=== PATIENT | male | born 1930 | race Caucasian/White ===

== ENCOUNTER 2017-09-12 07:18 | Emergency (ER) | payer MEDICARE ==
[2017-09-12] MEDS: NS 1,000 ML IV (08:03)
[2017-09-12] MEDS: ALBUTEROL SULFATE 2.5 MG/0.5 ML INH NEB SOLN NEB ×3 (08:36→09:06)
[2017-09-12 09:00] LABS: BASO # 0.1 10^3/uL (0.0-0.2); BASO % 0.8 % (0.0-1.0); EOS # 0.4 10^3/uL (0.0-0.50); EOS % 5.2 % (0.0-3.0); HEMATOCRIT 36.6 % (42.0-52.0); HEMOGLOBIN 12.1 g/dl (14.0-18.0); IMMATURE GRANULOCYTE % 0.4 % (0-3.0); LYMPH # 1.1 10^3/uL (1.5-4.5); LYMPH % 14.7 % (24.0-44.0); MEAN CORPUSCULAR HEMOGLOBIN 27.4 pg (27.0-33.0); MEAN CORPUSCULAR HGB CONC 33.1 g/dl (32.0-36.5); MEAN CORPUSCULAR VOLUME 82.8 fl (80.0-96.0); MONO # 0.8 10^3/uL (0.0-0.8); MONO % 10.6 % (0.0-5.0); NEUTROPHILS # 5.2 10^3/uL (1.8-7.7); NEUTROPHILS % 68.3 % (36.0-66.0); PLATELET COUNT, AUTOMATED 210 10^3/uL (150-450); RED BLOOD COUNT 4.42 10^6/uL (4.30-6.10); RED CELL DISTRIBUTION WIDTH 15.6 % (11.5-14.5); WHITE BLOOD COUNT 7.6 10^3/uL (4.0-10.0)
[2017-09-12 09:47] LABS: ALBUMIN 3.3 GM/DL (3.2-5.2); ALBUMIN/GLOBULIN RATIO 0.87 (1.00-1.93); ALKALINE PHOSPHATASE 73 U/L (45-117); ALT/SGPT 21 U/L (12-78); ANION GAP 7 MEQ/L (8-16); AST/SGOT 28 U/L (7-37); BILIRUBIN,DIRECT 0.1 MG/DL (0.0-0.2); BILIRUBIN,TOTAL 0.5 MG/DL (0.2-1.0); BLOOD UREA NITROGEN 35 MG/DL (7-18); CALCIUM LEVEL 8.5 MG/DL (8.8-10.2); CARBON DIOXIDE LEVEL 26 MEQ/L (21-32); CHLORIDE LEVEL 104 MEQ/L (98-107); CPK CREATINE PHOSPHOKINASE 75 U/L (39-308); CREATININE FOR GFR 1.95 MG/DL (0.70-1.30); GLOMERULAR FILTRATION RATE 34.9 (>35); GLUCOSE, FASTING 129 MG/DL (70-100); SODIUM LEVEL 137 MEQ/L (136-145); TOTAL PROTEIN 7.1 GM/DL (6.4-8.2); TROPONIN I < 0.02 NG/ML (< 0.10)
[2017-09-12 09:53] LABS: CK-MB VALUE MASS 2.3 NG/ML (0.0-3.6); MB/CK RELATIVE INDEX 3.06 (< OR =4); NT-PRO BNP 700 PG/ML (<450)
== END 2017-09-12 11:35 | disposition home or self-care (01) ==
LOC: M ED 07:18
DX: B97.4 Respiratory syncytial virus as the cause of diseases classified elsewhere (principal); I51.9 Heart disease, unspecified; E11.9 Type 2 diabetes mellitus without complications; E78.5 Hyperlipidemia, unspecified; Z95.5 Presence of coronary angioplasty implant and graft; Z87.19 Personal history of other diseases of the digestive system; Z79.01 Long term (current) use of anticoagulants; Z79.82 Long term (current) use of aspirin; Z79.4 Long term (current) use of insulin; Z79.899 Other long term (current) drug therapy
CPT/HCPCS: 71045

== ENCOUNTER 2017-09-14 12:25 | Inpatient (IN) | payer MEDICARE ==
[2017-09-14 14:17] LABS: INR 1.16
[2017-09-14 14:26] LABS: VENOUS HCO3 23.9 MEQ/L (23.0-27.0); VENOUS O2 SATURATION 88.7 % (60.0-80.0); VENOUS PARTIAL PRESSURE CO2 40.7 mmHg (38.0-50.0); VENOUS PARTIAL PRESSURE O2 57.3 mmHg (30.0-50.0); VENOUS PH 7.387 UNITS (7.330-7.430); VENOUS STANDARD HCO3 23.4 MEQ/L; VENOUS TOTAL CO2 25.2 MEQ/L (24.0-28.0)
[2017-09-14 14:36] LABS: LACTIC ACID SEPSIS PROTOCOL 1.5 MMOL/L (0.4-2.0)
[2017-09-14 14:42] LABS: ANION GAP 11 MEQ/L (8-16); BLOOD UREA NITROGEN 40 MG/DL (7-18); CALCIUM LEVEL 8.5 MG/DL (8.8-10.2); CARBON DIOXIDE LEVEL 24 MEQ/L (21-32); CHLORIDE LEVEL 102 MEQ/L (98-107); CK-MB VALUE MASS 2.5 NG/ML (0.0-3.6); CPK CREATINE PHOSPHOKINASE 134 U/L (39-308); CREATININE FOR GFR 2.25 MG/DL (0.70-1.30); GLOMERULAR FILTRATION RATE 29.6 (>35); GLUCOSE, FASTING 96 MG/DL (70-100); MB/CK RELATIVE INDEX 1.86 (< OR =4); POTASSIUM SERUM 4.4 MEQ/L (3.5-5.1); SODIUM LEVEL 137 MEQ/L (136-145); TROPONIN I < 0.02 NG/ML (< 0.10)
[2017-09-14 14:49] LABS: ALBUMIN 3.6 GM/DL (3.2-5.2); ALBUMIN/GLOBULIN RATIO 1.09 (1.00-1.93); ALKALINE PHOSPHATASE 80 U/L (45-117); ALT/SGPT 25 U/L (12-78); AST/SGOT 36 U/L (7-37); BILIRUBIN,DIRECT 0.1 MG/DL (0.0-0.2); BILIRUBIN,TOTAL 0.5 MG/DL (0.2-1.0); NT-PRO BNP 982 PG/ML (<450); THYROXINE (T4) 8.8 UG/DL (4.5-12.0); TOTAL PROTEIN 6.9 GM/DL (6.4-8.2)
[2017-09-14 14:57] LABS: BASO % 0.4 % (0.0-1.0); EOS # 0.2 10^3/uL (0.0-0.50); HEMATOCRIT 37.7 % (42.0-52.0); HEMOGLOBIN 12.7 g/dl (14.0-18.0); IMMATURE GRANULOCYTE % 0.6 % (0-3.0); LYMPH # 1.2 10^3/uL (1.5-4.5); MEAN CORPUSCULAR HEMOGLOBIN 27.7 pg (27.0-33.0); MEAN CORPUSCULAR HGB CONC 33.7 g/dl (32.0-36.5); MEAN CORPUSCULAR VOLUME 82.3 fl (80.0-96.0); MONO # 1.1 10^3/uL (0.0-0.8); MONO % 10.2 % (0.0-5.0); NEUTROPHILS # 7.9 10^3/uL (1.8-7.7); NEUTROPHILS % 75.8 % (36.0-66.0); PLATELET COUNT, AUTOMATED 247 10^3/uL (150-450); RED BLOOD COUNT 4.58 10^6/uL (4.30-6.10); RED CELL DISTRIBUTION WIDTH 16.2 % (11.5-14.5); WHITE BLOOD COUNT 10.4 10^3/uL (4.0-10.0)
[2017-09-14 15:47] LABS: C REACTIVE PROTEIN QUANTITATIV 1.46 MG/DL (0.00-0.30)
[2017-09-14] MEDS ORDERED: ACETAMINOPHEN TAB 650MG DOSE (2X325MG) PO (16:00)
[2017-09-14] MEDS ORDERED: ONDANSETRON 4MG/2ML VIAL (J2405) IV (16:00)
[2017-09-14] MEDS ORDERED: IPRATROPIUM 0.5MG/ALBUTEROL 2.5MG INH SOL UD 3ML (DUONEB)(J7620) NEB (16:00)
[2017-09-14] MEDS ORDERED: DEXTROSE 50% 50 ML SYRINGE IV (16:30)
[2017-09-14] MEDS ORDERED: GLUCAGON FOR INJ 1 MG VIAL (J1610) SC (16:30)
[2017-09-14] MEDS ORDERED: GLUCOSE 4 GM CHEW TABLET PO (16:30)
[2017-09-14] MEDS: HumaLOG INSULIN (NovoLOG) PER UNIT SC ×2 (18:14→20:55)
[2017-09-14 18:16] LABS: BEDSIDE GLUCOSE 114 MG/DL (83-110)
[2017-09-14 18:25] LABS: OSMOLALITY URINE 398 MOSM/KG (500-800)
[2017-09-14 18:32] LABS: APPEARANCE, URINE TURBID (CLEAR); BACTERIA, URINE AUTO 3+ (NEGATIVE); BILIRUBIN, URINE AUTO NEGATIVE (NEGATIVE); BLOOD, URINE BLOOD 1+ (NEGATIVE); COLOR, URINE YELLOW (YELLOW); GLUCOSE, URINE (UA) AUTO NEGATIVE (NEGATIVE); KETONE, URINE AUTO NEGATIVE (NEGATIVE); LEUKOCYTE ESTERASE, URINE AUTO 3+ (NEGATIVE); NITRITE, URINE AUTO NEGATIVE (NEGATIVE); PROTEIN, URINE AUTO 1+ mg/dL (NEGATIVE); RBC, URINE AUTO 20 /HPF (0-3); SPECIFIC GRAVITY URINE AUTO 1.012 (1.002-1.035); SQUAMOUS EPITHELIAL CELL UR AU 1 /HPF (0-6); UROBILINOGEN, URINE AUTO 0.2 mg/dL (0.0-2.0); WBC, URINE AUTO TNTC /HPF (0-3)
[2017-09-14 18:39] LABS: CHLORIDE,RANDOM URINE 62 MEQ/L; POTASSIUM RANDOM URINE 45.4 MEQ/L; SODIUM,RANDOM URINE 49 MEQ/L; TOTAL PROTEIN,RANDOM URINE 36.4 MG/DL (0.0-12.0)
[2017-09-14 20:47] LABS: CPK CREATINE PHOSPHOKINASE 168 U/L (39-308); TROPONIN I 0.02 NG/ML (< 0.10)
[2017-09-14 20:48] LABS: CK-MB VALUE MASS 2.4 NG/ML (0.0-3.6); MB/CK RELATIVE INDEX 1.42 (< OR =4)
[2017-09-14] MEDS: CEFTRIAXONE SOD 1 GM in APPROPRIATE DILUENT 1 EA IV (20:54)
[2017-09-14] MEDS: guaiFENesin ER 600 MG TAB PO (20:54)
[2017-09-14] MEDS: DOCUSATE SODIUM 100 MG CAP PO (20:55)
[2017-09-14] MEDS: APIXABAN 2.5 MG TAB (ELIQUIS) PO (20:55)
[2017-09-14] MEDS: LEVEMIR (INSULIN DETEMIR) 1 UNITS/0.01ML SC (20:55)
[2017-09-14] MEDS: AZITHROMYCIN INJ 500 MG, VIAL MATE ADAPTER 1 EACH in D5W 250 ML IV (20:56)
[2017-09-14] MEDS: IPRATROPIUM 0.5MG/ALBUTEROL 2.5MG INH SOL UD 3ML (DUONEB)(J7620) NEB (21:16)
[2017-09-14 21:45] LABS: BEDSIDE GLUCOSE 195 MG/DL (83-110)
[2017-09-14] MEDS ORDERED: HEPARIN SOD (PORCINE) 5000 UNITS/ML VIAL SC (22:00)
[2017-09-15] MEDS: IPRATROPIUM 0.5MG/ALBUTEROL 2.5MG INH SOL UD 3ML (DUONEB)(J7620) NEB ×4 (01:20→20:00)
[2017-09-15] MEDS: LEVOTHYROXINE 50MCG TABLET (0.05MG) PO (05:27)
[2017-09-15 06:29] LABS: HEMATOCRIT 36.8 % (42.0-52.0); HEMOGLOBIN 12.3 g/dl (14.0-18.0); MEAN CORPUSCULAR HEMOGLOBIN 27.2 pg (27.0-33.0); MEAN CORPUSCULAR HGB CONC 33.4 g/dl (32.0-36.5); MEAN CORPUSCULAR VOLUME 81.2 fl (80.0-96.0); PLATELET COUNT, AUTOMATED 224 10^3/uL (150-450); RED BLOOD COUNT 4.53 10^6/uL (4.30-6.10); RED CELL DISTRIBUTION WIDTH 16.2 % (11.5-14.5); WHITE BLOOD COUNT 9.3 10^3/uL (4.0-10.0)
[2017-09-15 06:56] LABS: ANION GAP 10 MEQ/L (8-16); BLOOD UREA NITROGEN 42 MG/DL (7-18); C REACTIVE PROTEIN QUANTITATIV 1.95 MG/DL (0.00-0.30); CALCIUM LEVEL 8.4 MG/DL (8.8-10.2); CARBON DIOXIDE LEVEL 26 MEQ/L (21-32); CHLORIDE LEVEL 103 MEQ/L (98-107); CREATININE FOR GFR 2.26 MG/DL (0.70-1.30); GLOMERULAR FILTRATION RATE 29.4 (>35); GLUCOSE, FASTING 86 MG/DL (70-100); MAGNESIUM LEVEL 1.9 MG/DL (1.8-2.4); POTASSIUM SERUM 4.1 MEQ/L (3.5-5.1); SODIUM LEVEL 139 MEQ/L (136-145)
[2017-09-15] MEDS: HumaLOG INSULIN (NovoLOG) PER UNIT SC ×4 (07:30→21:00)
[2017-09-15] MEDS: TAMSULOSIN 0.4 MG CAP PO (09:23)
[2017-09-15] MEDS: LEVEMIR (INSULIN DETEMIR) 1 UNITS/0.01ML SC ×2 (09:24→21:00)
[2017-09-15] MEDS: MAGNESIUM OXIDE 400 MG TAB (MAG-OX) PO (09:24)
[2017-09-15] MEDS: ROSUVASTATIN 10 MG TAB (CRESTOR) PO (09:24)
[2017-09-15] MEDS: guaiFENesin ER 600 MG TAB PO ×2 (09:24→21:34)
[2017-09-15] MEDS: APIXABAN 2.5 MG TAB (ELIQUIS) PO ×2 (09:24→21:34)
[2017-09-15] MEDS: PANTOPRAZOLE 40MG TAB (PROTONIX) PO (09:24)
[2017-09-15] MEDS: METOPROLOL SUCC (TopROL XL) 50MG **XL** TAB PO (09:26)
[2017-09-15] MEDS: FINASTERIDE 5 MG TAB PO (09:26)
[2017-09-15] MEDS: ASPIRIN 81 MG ENTERIC TAB PO (09:26)
[2017-09-15] MEDS: DOCUSATE SODIUM 100 MG CAP PO ×2 (09:27→21:34)
[2017-09-15 11:58] LABS: BEDSIDE GLUCOSE 165 MG/DL (83-110)
[2017-09-15 16:56] LABS: BEDSIDE GLUCOSE 190 MG/DL (83-110)
[2017-09-15] MEDS ORDERED: ALBUTEROL SULFATE 2.5 MG/0.5 ML INH NEB SOLN NEB (19:30)
[2017-09-15 21:41] LABS: BEDSIDE GLUCOSE 172 MG/DL (83-110)
[2017-09-16] MEDS: LEVOTHYROXINE 50MCG TABLET (0.05MG) PO (05:47)
[2017-09-16 06:13] LABS: HEMATOCRIT 37.6 % (42.0-52.0); HEMOGLOBIN 12.5 g/dl (14.0-18.0); MEAN CORPUSCULAR HEMOGLOBIN 27.4 pg (27.0-33.0); MEAN CORPUSCULAR HGB CONC 33.2 g/dl (32.0-36.5); MEAN CORPUSCULAR VOLUME 82.3 fl (80.0-96.0); PLATELET COUNT, AUTOMATED 209 10^3/uL (150-450); RED BLOOD COUNT 4.57 10^6/uL (4.30-6.10); RED CELL DISTRIBUTION WIDTH 16.4 % (11.5-14.5); WHITE BLOOD COUNT 8.5 10^3/uL (4.0-10.0)
[2017-09-16 06:32] LABS: ANION GAP 9 MEQ/L (8-16); BLOOD UREA NITROGEN 45 MG/DL (7-18); CALCIUM LEVEL 8.6 MG/DL (8.8-10.2); CARBON DIOXIDE LEVEL 25 MEQ/L (21-32); CHLORIDE LEVEL 104 MEQ/L (98-107); CREATININE FOR GFR 2.05 MG/DL (0.70-1.30); GLOMERULAR FILTRATION RATE 32.9 (>35); GLUCOSE, FASTING 115 MG/DL (70-100); POTASSIUM SERUM 4.1 MEQ/L (3.5-5.1); SODIUM LEVEL 138 MEQ/L (136-145)
[2017-09-16] MEDS: IPRATROPIUM 0.5MG/ALBUTEROL 2.5MG INH SOL UD 3ML (DUONEB)(J7620) NEB (07:45)
[2017-09-16] MEDS: guaiFENesin ER 600 MG TAB PO (08:40)
[2017-09-16] MEDS: HumaLOG INSULIN (NovoLOG) PER UNIT SC (08:40)
[2017-09-16] MEDS: LEVEMIR (INSULIN DETEMIR) 1 UNITS/0.01ML SC (08:40)
[2017-09-16] MEDS: FINASTERIDE 5 MG TAB PO (08:41)
[2017-09-16] MEDS: ROSUVASTATIN 10 MG TAB (CRESTOR) PO (08:41)
[2017-09-16] MEDS: PANTOPRAZOLE 40MG TAB (PROTONIX) PO (08:41)
[2017-09-16] MEDS: ASPIRIN 81 MG ENTERIC TAB PO (08:41)
[2017-09-16] MEDS: TAMSULOSIN 0.4 MG CAP PO (08:41)
[2017-09-16] MEDS: APIXABAN 2.5 MG TAB (ELIQUIS) PO (08:41)
[2017-09-16] MEDS: MAGNESIUM OXIDE 400 MG TAB (MAG-OX) PO (08:41)
[2017-09-16] MEDS: DOCUSATE SODIUM 100 MG CAP PO (08:41)
[2017-09-16] MEDS: METOPROLOL SUCC (TopROL XL) 50MG **XL** TAB PO (08:42)
[2017-09-16 17:36] LABS: BEDSIDE GLUCOSE 173 MG/DL (83-110)
== END 2017-09-16 12:20 | disposition home or self-care (01) | DRG 202 ==
LOC: M ED 12:25 → M ED INP 15:53 → M MSPAV 20:03
DX: J20.5 Acute bronchitis due to respiratory syncytial virus (principal); I50.32 Chronic diastolic (congestive) heart failure; N17.9 Acute kidney failure, unspecified; N18.4 Chronic kidney disease, stage 4 (severe); I48.2 Chronic atrial fibrillation; E11.9 Type 2 diabetes mellitus without complications; E78.5 Hyperlipidemia, unspecified; Z79.01 Long term (current) use of anticoagulants; Z79.82 Long term (current) use of aspirin; Z79.4 Long term (current) use of insulin; Z79.899 Other long term (current) drug therapy; K21.9 Gastro-esophageal reflux disease without esophagitis; M19.90 Unspecified osteoarthritis, unspecified site; N40.0 Benign prostatic hyperplasia without lower urinary tract symptoms; I25.10 Atherosclerotic heart disease of native coronary artery without angina pectoris; N28.1 Cyst of kidney, acquired

== ENCOUNTER → 2018-09-29 | Outpatient (CLI) | payer MEDICARE ==
[~2018-09-29] MED LIST: /ESOM40CA PO; /WARF25TA; AMO500 PO; ASPI81TA7 PO; AVANDIA4 PO; CLOTR1CR TOP; CORTISSUSP OTIC; CRES20TA PO; CRESTOR PO; DEXT30LI PO; DIAB5TAB; DIOVANH160 PO; ELIQ2.5T PO; FINA5TAB2 PO; FLOM0.4C39 PO; FLOXINOTIC; FURO20TA2 PO; GLUC1000; GLUCCOSEAC TOPICAL; GLUCOP1000 PO; GLUCOPH500 PO; GLUCOSACCS; GLUCULTRA TOPICAL; GLYBURIDE5 PO; HUMA100I5 SC; LAMISILCR TOPICAL; LANCMIS; LEVOXYL50 PO; LOVA1CAP16 PO; LOVAZA PO; MAGN400C2 PO; METO1TAB7 PO; MEVACOR40 PO; MOTRIN400 PO; NEXIUM40 PO; NOVO SC; OMEGA 3 ACID; ONGL5TAB PO; PLAVIX75 PO; PRED10TA2 PO; PROAAER10 INH; SYNT50TA PO; SYNTHROI05 PO; TOPR25TA PO; TOPROL25 PO; TOUJ1.2I SC; TRIAMCIN TOPICAL; TRICOR48 PO; TYLENOLCOD PO; VALTREX PO; VASO10TA; VASOTEC10 PO; VASOTEC5 PO; XANAX0.25 PO; [UNRECOGNIZED DRUG - OTHER] -
--- NOTE | 2018-09-29 12:51 | REP ---
Clinical: Peripheral vascular disease . Technique: Martinez scale and color Doppler evaluation using linear high frequency transducer. Findings: Ultrasound examination of the right and left lower extremity deep venous structures from the common femoral vein to the popliteal vein demonstrates normal compressibility flow and wave patterns in response to respiration and augmentation. There is no evidence for deep venous thrombosis. There is a complex fluid collection along the medial aspect of the left popliteal fossa measuring 8.7 x 2.5 x 2.3 cm which may represent complex Ruiz's cyst. Impression: No evidence for deep venous thrombosis. 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 Electronically Signed by Bret Adame MD 09/29/2018 12:43 P
--- NOTE | 2018-09-29 12:59 | REP ---
Clinical: History of diabetes with peripheral vascular disease. Technique: Real time nam scale and color Doppler evaluation of the right lower extremity arterial vasculature using linear high frequency transducer. Findings: The ankle to brachial index could not be obtained. Diffuse significant mixed atheromatous plaquing noted throughout the right lower extremity without definable area of stenosis appreciated. Color Doppler interrogation demonstrates biphasic wave patterns from the common femoral artery to the proximal posterior tibial artery followed by monophasic wave patterns of the distal posterior tibial artery and anterior tibial artery. PSV(cm/sec) LEFT Common femoral artery 94.1 cm/s Profunda femoris artery 92.7 cm/s Proximal superficial femoral artery 89.4 cm/s Mid superficial femoral artery 87.7 cm/s Distal superficial femoral artery 69.7 cm/s Popliteal artery 70.1 cm/s Proximal NATALIE 62.5 cm/s Tibioperoneal trunk 74.3 cm/s Proximal REGULATORY ATTORNEY 27.2 cm/s Distal REGULATORY ATTORNEY 39.0 cm/s Distal NATALIE 95.5 cm/s Impression: Moderate to significant atherosclerotic disease. No definable focal area of stenosis appreciated. Electronically Signed by Bret Adame MD 09/29/2018 12:49 P
== END ==
LOC: M RAD 10:44
PROVIDERS: ATTEND Surgery Vascular Surgery
DX: I73.9 Peripheral vascular disease, unspecified (principal)

== ENCOUNTER 2018-12-21 09:46 | Emergency (ER) | payer MEDICARE ==
[~2018-12-21] VITALS: Ht 170.2 cm; Wt 100.2 kg
[~2018-12-21 09:46] MED LIST changes: -/ESOM40CA PO; -/WARF25TA; +CLOT1CRE27 TOP; -CLOTR1CR TOP; +COUM1TAB18; +METO-1 PO; +NEXI1CAP3 PO; -NOVO SC; +NOVO70VL SC; -TOPR25TA PO
--- NOTE | 2018-12-21 11:04 | REP ---
LEFT ELBOW, FOUR VIEWS: HISTORY: Fall. There is no acute fracture or dislocation. The joint space is normal in appearance. Calcifications are present medial and lateral to the distal humerus. This represents ligamentous or tendon calcification. IMPRESSION: There is no acute fracture or dislocation. Electronically Signed by Macario Sanz MD 12/21/2018 11:07 A
[2018-12-21 11:09] VITALS: BP 143/65
== END 2018-12-21 11:14 | disposition home or self-care (01) ==
LOC: M ED 09:46
DX: M70.22 Olecranon bursitis, left elbow (principal); I10 Essential (primary) hypertension; E78.5 Hyperlipidemia, unspecified; E11.9 Type 2 diabetes mellitus without complications; K21.9 Gastro-esophageal reflux disease without esophagitis; E03.9 Hypothyroidism, unspecified; M54.9 Dorsalgia, unspecified; F41.9 Anxiety disorder, unspecified; Z87.442 Personal history of urinary calculi; Z96.643 Presence of artificial hip joint, bilateral; Z95.5 Presence of coronary angioplasty implant and graft; Z79.51 Long term (current) use of inhaled steroids; Z79.52 Long term (current) use of systemic steroids; Z79.4 Long term (current) use of insulin; Z79.82 Long term (current) use of aspirin; Z79.899 Other long term (current) drug therapy

== ENCOUNTER → 2018-12-23 | Outpatient (REF) | payer MEDICARE ==
[2018-12-23 16:06] LABS: BASO # 0.1 10^3/uL (0.0-0.2); BASO % 0.6 % (0.0-1.0); EOS # 0.3 10^3/uL (0.0-0.50); EOS % 3.8 % (0.0-3.0); HEMATOCRIT 37.7 % (42.0-52.0); HEMOGLOBIN 12.4 g/dl (13.5-17.5); LYMPH # 1.8 10^3/uL (1.5-4.5); LYMPH % 21.9 % (24.0-44.0); MEAN CORPUSCULAR HEMOGLOBIN 29.3 pg (27.0-33.0); MEAN CORPUSCULAR HGB CONC 32.9 g/dl (32.0-36.5); MEAN CORPUSCULAR VOLUME 89.1 fl (80.0-96.0); MONO # 0.5 10^3/uL (0.0-0.8); MONO % 6.2 % (0.0-5.0); NEUTROPHILS # 5.6 10^3/uL (1.8-7.7); PLATELET COUNT, AUTOMATED 229 10^3/uL (150-450); RED BLOOD COUNT 4.23 10^6/uL (4.30-6.10); WHITE BLOOD COUNT 8.4 10^3/uL (4.0-10.0)
[2018-12-23 16:38] LABS: ERYTHROCYTE SEDIMENTATION RATE 41 mm/hr (0-30)
== END ==
LOC: M LABDRAW1 15:38
PROVIDERS: ATTEND Physician Assistant
DX: M70.22 Olecranon bursitis, left elbow (principal)

== ENCOUNTER → 2019-05-17 | Outpatient (REF) | payer MEDICARE ==
[2019-05-17 18:14] LABS: APPEARANCE, URINE HAZY (CLEAR); BACTERIA, URINE AUTO NEGATIVE (NEGATIVE); BILIRUBIN, URINE AUTO NEGATIVE (NEGATIVE); BLOOD, URINE BLOOD NEGATIVE (NEGATIVE); COLOR, URINE YELLOW (YELLOW); GLUCOSE, URINE (UA) AUTO 1+ mg/dL (NEGATIVE); KETONE, URINE AUTO NEGATIVE (NEGATIVE); LEUKOCYTE ESTERASE, URINE AUTO NEGATIVE (NEGATIVE); MUCUS, URINE SMALL (NEGATIVE); NITRITE, URINE AUTO NEGATIVE (NEGATIVE); PROTEIN, URINE AUTO 1+ mg/dL (NEGATIVE); RBC, URINE AUTO 1 /HPF (0-3); SPECIFIC GRAVITY URINE AUTO 1.013 (1.002-1.035); SQUAMOUS EPITHELIAL CELL UR AU 2 /HPF (0-6); UROBILINOGEN, URINE AUTO 0.2 mg/dL (0.0-2.0); WBC, URINE AUTO 1 /HPF (0-3)
== END ==
LOC: M SMT 17:01
PROVIDERS: ATTEND Nurse Practitioner Women's Health
DX: N40.1 Benign prostatic hyperplasia with lower urinary tract symptoms (principal)

== ENCOUNTER 2020-03-21 01:18 | Inpatient (IN) | payer MEDICARE ==
[~2020-03-21] VITALS: Ht 167.6 cm; Wt 91.4 kg
[~2020-03-21 01:18] MED LIST changes: +ZOSYN 3.375GM VIAL (J2543) As Ordered ONE
[2020-03-21] MEDS ORDERED: TOPR25TA PO (02:19)
[2020-03-21] MEDS ORDERED: ESOM1CAP5 PO (02:19)
[2020-03-21] MEDS ORDERED: KEFL500C17 PO (02:19)
[2020-03-21] MEDS ORDERED: OMEG100011 PO (02:19)
[2020-03-21] MEDS ORDERED: ONGL1TAB9 PO (02:19)
[2020-03-21] MEDS ORDERED: SPIR-10 PO (02:19)
[2020-03-21] MEDS ORDERED: SYNT50TA PO (02:19)
[2020-03-21] MEDS ORDERED: ROSU20TA5 PO (02:19)
[2020-03-21] MEDS ORDERED: ASPI-161 PO (02:19)
[2020-03-21] MEDS ORDERED: MAGN400T3 PO (02:21)
[2020-03-21 03:43] VITALS: BP 130/56
--- NOTE | 2020-03-21 04:28 | HPEPDOC ---
[facility] Medical History & Physical Date of Admission Mar 21, 2020 Date of Service: Mar 21, 2020 History and Physical CHIEF COMPLAINT: L. toe laceration HISTORY OF PRESENT ILLNESS: Patient is an 89 year old male with PMH DM, CAD s/p CABG and stents placement, HTN, CHF?, GERD, Afib on Eliquis was sent into the ER from ortho's office with concern for L. great toe infection. He has had a fracture of his L. toe in January and has been on Augmentin for 2 weeks while following with orthopedic as outpatient. However, his wound did not seem to improve and got progressively more painful with development of erythema on the foot and was sent into the ER. He is very hard of hearing and does not provide much history, most is obtained from his daughter at bedside due to dementia and hearing problems. No surgery indicated per ortho for toe fracture, Abx and podiatry for toe infection and nail separation. Patient himself denies any problems including any pain/discomfort, fever or chills. PAST MEDICAL HISTORY: Refer to HPI PAST SURGICAL HISTORY: cholecystectomy b/l THR cataract surgery SOCIAL HISTORY: Denies tobacco, alcohol or drug use FAMILY HISTORY: mother- DM Father- [place] and CAD ALLERGIES: Please see below. REVIEW OF SYSTEMS: 10 point ROS negative except as above HOME MEDICATIONS: Please see below. PHYSICAL EXAMINATION: - General: Lying in bed comfortably, very difficult of hearing, poor insight into his medical problems - HEENT: Atraumatic, PERRLA - CVS: +S1S2 - Lungs: Good air entry bilaterally, No appreciable wheezing / rales / rhonchi - Abdomen: Soft, Non-distended, Non-tender - Extremities: No extremity swelling, limbs intact - Skin/extremities: L. foot with erythema over dorsum. L. toe with overlying bandage, proximal nail edge separates from the toe bilaterally but worse on the L. side. - Neuro: No focal motor or sensory deficit LABORATORY DATA: See below. IMAGING: None MICROBIOLOGY: Please see below. ASSESSMENT AND PLAN: 1. R. toe fracture w/ b/l toe nail separations - Was seen by orthopedic, no indication for surgery for fracture. Sent in due to infection and to be treated with IV abx. - Consult Podiatry, Dr. Olea for foot infection and nail separation. Please notify in AM. - f/u blood culture x2. Given 1 dose of zosyn in ER, will continue regimen. - WBC 12.3, afebrile. 2. Atrial fibrillation - On metoprolol and Eliquis for AC. - Eliquis hold for possible surgery. 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 Hold oral meds. - consistent carbohydrate diet. ISS + ISS. 4. CAD - ASA, crestor, BB. 5. HLD - Crestor. 6. Hypothyroidism - synthroid 7. OA 8. CKD DVT PPX: SCD, On eliquis but hold at this time incase surgery is needed for foot Code status: DNR/DNI Vital Signs Vital Signs Date Time Temp Pulse Resp B/P (MAP) Pulse Ox O2 Delivery O2 Flow Rate FiO2 03/21/20 03:43 98.4 58 18 130/56 (80) 96 Room Air Home Medications Scheduled Apixaban (Eliquis) 2.5 Mg Tab, 2.5 MG PO BID Aspirin (Aspirin EC) 81 Mg Tablet.dr, 81 MG PO DAILY Cephalexin (Keflex) 500 Mg Capsule, 500 MG PO TID Esomeprazole Magnesium (Esomeprazole Magnesium) 40 Mg Capsule.dr, 40 MG PO DAILY Finasteride (Finasteride) 5 Mg Tab, 5 MG PO DAILY Furosemide (Furosemide) 20 Mg Tab, 20 MG PO DAILY Insulin Glargine,Hum.rec.anlog (Toujeo Solostar) 300 Unit/Ml Inj, 70 UNITS SC QHS Insulin Lispro (Humalog Kwikpen U-100) 100 Unit/Ml Inj, 1 DOSE SC AC PER SLIDING SCALE Levothyroxine Sodium (Synthroid) 50 Mcg Tablet, 50 MCG PO DAILY Magnesium Oxide (Magnesium Oxide) 400 Mg Tablet, 400 MG PO DAILY Metoprolol Succinate (Toprol Xl) 25 Mg Tab.er.24h, 25 MG PO DAILY [place]-3 Fatty Acids/Fish Oil ([place] 3 1,000 mg Softgel) 1 Each Capsule, 1 CAP PO BID Rosuvastatin Calcium (Rosuvastatin Calcium) 20 Mg Tablet, 20 MG PO QHS Saxagliptin HCl (Onglyza) 5 Mg Tablet, 5 MG PO DAILY Spironolactone (Spironolactone) 25 Mg Tablet, 25 MG PO DAILY Tamsulosin HCl (Flomax) 0.4 Mg Cap, 0.8 MG PO QHS Allergies Coded Allergies: No Known Allergies (Unverified , 12/21/18) A-FIB/CHADSVASC A-FIB History Current/History of A-Fib/PAF?: Yes Current PO Anticoag Therapy: Yes MILAD BULLOCK MD Mar 21, 2020 04:28
[2020-03-21] MEDS ORDERED: GLUCAGON INJ 1MG VIAL SC PRN (04:30)
[2020-03-21] MEDS ORDERED: DEXTROSE 50% 50 ML SYRINGE IV PRN (04:30)
[2020-03-21] MEDS ORDERED: GLUCOSE 4GM CHEW TABLET PO PRN (04:30)
[2020-03-21 06:00] VITALS: BP 127/54
[2020-03-21] MEDS: LEVOTHYROXINE 50MCG TABLET (0.05MG) PO SCH (06:04)
[2020-03-21] MEDS: PIPERACILLIN/TAZOBACTAM SOD 3.375 GM in D5W MINI-BAG PLUS 50 ML IV SCH ×3 (06:34→18:13)
[2020-03-21 07:02] LABS: HEMATOCRIT 37.7 % (42.0-52.0); HEMOGLOBIN 12.8 g/dl (13.5-17.5); MEAN CORPUSCULAR HEMOGLOBIN 29.2 pg (27.0-33.0); MEAN CORPUSCULAR VOLUME 85.9 fl (80.0-96.0); PLATELET COUNT, AUTOMATED 210 10^3/uL (150-450); RED BLOOD COUNT 4.39 10^6/uL (4.30-6.10); WHITE BLOOD COUNT 9.8 10^3/uL (4.0-10.0)
[2020-03-21 07:28] LABS: CALCIUM LEVEL 8.6 MG/DL (8.8-10.2); CREATININE FOR GFR 2.08 MG/DL (0.70-1.30); GLOMERULAR FILTRATION RATE 32.2 (>35); POTASSIUM SERUM 4.6 MEQ/L (3.5-5.1)
[2020-03-21] MEDS: FUROSEMIDE 20 MG TAB PO SCH (08:24)
[2020-03-21] MEDS: MAGNESIUM OXIDE 400 MG TAB (MAG-OX) PO SCH (08:24)
[2020-03-21] MEDS: ASPIRIN 81 MG ENTERIC TAB PO SCH (08:24)
[2020-03-21] MEDS: FINASTERIDE 5 MG TAB PO SCH (08:24)
[2020-03-21] MEDS: SPIRONOLACTONE 25 MG TAB PO SCH (08:24)
[2020-03-21] MEDS: HumaLOG INSULIN (NovoLOG) PER UNIT SC SCH ×4 (08:24→20:20)
[2020-03-21] MEDS: OMEGA-3 1000MG CAPSULE PO SCH ×2 (08:24→20:20)
[2020-03-21] MEDS: METOPROLOL SUCC *XL* 25MG TAB (TopROL *XL*) PO SCH (08:28)
--- NOTE | 2020-03-21 11:02 | IPNPDOC ---
Subjective Date Seen The patient was seen on 03/21/20. Subjective Chief Complaint/HPI 89 y.o M with PMH of DM presented for concerns of right toe pain. No concerns this AM - denies pain/fevers/chills Events since last encounter resting comfortably this AM General: Reports: Normal Appetite; Denies: Chills, Night Sweats, Fatigue, Malaise Constitutional: Denies: Chills, Fever, Night Sweats Eyes: Denies: Pain, Vision change ENT: Denies: Head Aches, Ear Pain, Dysphagia Skin: Denies: Rash, Lesions, Breakdown Pulmonary: Denies: Dyspnea, Cough, Pleuritic Chest Pain, Other Symptoms Cardiovascular: Denies: Chest Pain, Palpitations, Orthopnea, Paroxysmal Noc. Dyspnea, Lt Headedness Gastrointestinal: Denies: Nausea, Vomiting, Abdominal Pain, Diarrhea, Constipation Genitourinary: Denies: Dysuria, Frequency, Incontinence, Retention Hematologic: Denies: Bruising, Bleeding Excessively Musculoskeletal: Reports: Joint Pain Neurological: Denies: Weakness, Numbness, Change in speech, Confusion Psych: Reports: Mood Normal; Denies: Depression, Memory Issues Assessment /Plan Assessment 1. R. toe fracture w/ b/l toe nail separations -continue zosyn - will consult Dr. Soto; awaiting call back 2. Atrial fibrillation - On metoprolol and Eliquis for AC. - Eliquis hold for possible surgery. 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 Hold oral meds. - consistent carbohydrate diet. ISS + ISS. 4. CAD - ASA, crestor, BB. 5. HLD - Crestor. 6. Hypothyroidism - synthroid 7. OA 8. CKD DVT PPX: SCD, On eliquis but hold at this time incase surgery is needed for foot Code status: DNR/DNI Plan/VTE VTE Prophylaxis Ordered?: No VS, I&O, 24H, Fishbone Vital Signs/I&O Vital Signs Date Time Temp Pulse Resp B/P (MAP) Pulse Ox O2 Delivery O2 Flow Rate FiO2 03/21/20 08:28 64 127/59 03/21/20 06:00 98.5 18 96 Room Air I&O- Last 24 Hours up to 6 AM 03/21/20 06:00 Intake Total 0 ml Output Total 0 ml Balance 0 ml Laboratory Data 24H LABS Laboratory Tests 2 03/21/20 06:40: Nucleated Red Blood Cells % (auto) 0.0, Anion Gap 7L, Glomerular Filtration Rate 32.2L, Calcium Level 8.6L CBC/BMP Laboratory Tests 03/21/20 06:40 Microbiology Microbiology 03/21/20 Urine Culture, Received Pending YANELI SANTO DO Mar 21, 2020 11:02
[2020-03-21 14:00] VITALS: BP 129/47
[2020-03-21] MEDS: TAMSULOSIN 0.4 MG CAP PO SCH (20:20)
[2020-03-21] MEDS: ROSUVASTATIN 10 MG TAB (CRESTOR) PO SCH (20:21)
[2020-03-21] MEDS: ACETAMINOPHEN TAB 650MG DOSE (2X325MG) PO PRN (20:21)
[2020-03-21] MEDS ORDERED: LEVEMIR (INSULIN DETEMIR) 1 UNITS/0.01ML SC SCH (21:00)
[2020-03-21 22:00] VITALS: BP 125/50
[2020-03-22] MEDS: PIPERACILLIN/TAZOBACTAM SOD 3.375 GM in D5W MINI-BAG PLUS 50 ML IV SCH ×4 (00:28→17:30)
[2020-03-22] MEDS: LEVOTHYROXINE 50MCG TABLET (0.05MG) PO SCH (05:37)
[2020-03-22 06:00] VITALS: BP 148/66
[2020-03-22] MEDS: HumaLOG INSULIN (NovoLOG) PER UNIT SC SCH ×4 (07:30→21:00)
[2020-03-22] MEDS: ASPIRIN 81 MG ENTERIC TAB PO SCH (07:53)
[2020-03-22] MEDS: MAGNESIUM OXIDE 400 MG TAB (MAG-OX) PO SCH (08:05)
[2020-03-22] MEDS: FUROSEMIDE 20 MG TAB PO SCH (08:07)
[2020-03-22] MEDS: FINASTERIDE 5 MG TAB PO SCH (08:07)
[2020-03-22] MEDS: OMEGA-3 1000MG CAPSULE PO SCH ×2 (08:07→22:48)
[2020-03-22] MEDS: METOPROLOL SUCC *XL* 25MG TAB (TopROL *XL*) PO SCH (08:07)
[2020-03-22] MEDS: SPIRONOLACTONE 25 MG TAB PO SCH (08:08)
--- NOTE | 2020-03-22 10:15 | REPVR ---
PROCEDURE INFORMATION: Exam: US Duplex Lower Extremity Arteries Or Arterial Bypass Grafts Exam date and time: 03/22/2020 9:00 AM Age: 89 years old Clinical indication: Condition or disease; Peripheral vascular disease; Additional info: Pvd, lt toe ulcer TECHNIQUE: Imaging protocol: Real-time ultrasound scan of the arteries of the bilateral lower extremities with 2-D nam scale, color Doppler flow and spectral waveform analysis. Images documented and saved. COMPARISON: US UNI LOW EXTREM ARTERIAL LIMIT 09/29/2018 11:22 AM FINDINGS: Right common femoral artery: No occlusion or significant stenosis. Biphasic waveform. 140 cm/s. Right superficial femoral artery: No occlusion or significant stenosis. Biphasic waveform. 139, 87 and 64 cm/s. Right popliteal artery: No occlusion or significant stenosis. Biphasic waveform. 99 cm/s. Right calf/foot arteries: Severe 70-80% stenosis at the origin of the right posterior tibial artery with a peak systolic flow velocity of 235 cm/s. Monophasic waveforms. Dorsalis pedis artery is patent. Left common femoral artery: No occlusion or significant stenosis. Biphasic waveform. 153 cm/s. Left superficial femoral artery: No occlusion or significant stenosis. Biphasic waveform. 156, 91 and 68 cm/s. Left popliteal artery: Moderate 50-60% stenosis in the left popliteal artery with a peak systolic flow velocity of 158 cm/s. Monophasic waveform. Left calf/foot arteries: No occlusion or significant stenosis in the visualized arteries. Normal waveforms. Dorsalis pedis artery is patent. 91, 53, 65, 93 and 51 cm/s. IMPRESSION: Extensive scattered atherosclerotic plaque is noted in bilateral lower extremity arterial system. Predominantly biphasic and monophasic arterial waveforms are seen. Severe 70-80% stenosis at the origin of the right posterior tibial artery with a peak systolic flow velocity of 235 cm/s. Moderate 50-60% stenosis in the left popliteal artery with a peak systolic flow velocity of 158 cm/s. Electronically signed by: Vishal Kruger On 03/22/2020 10:14:59 AM
--- NOTE | 2020-03-22 12:29 | IPNPDOC ---
Subjective Date Seen The patient was seen on 03/22/20. Subjective Chief Complaint/HPI 89 y.o M with PMH of DM presented for concerns of right toe pain. No concerns this AM - denies pain/fevers/chills Events since last encounter surgery later today. no overnight events General: Reports: Normal Appetite; Denies: Chills, Night Sweats, Fatigue, Malaise Constitutional: Denies: Chills, Fever, Night Sweats Eyes: Denies: Pain, Vision change ENT: Denies: Head Aches, Ear Pain, Dysphagia Skin: Denies: Rash, Lesions, Breakdown Pulmonary: Denies: Dyspnea, Cough Cardiovascular: Denies: Chest Pain, Palpitations, Orthopnea, Paroxysmal Noc. Dyspnea, Lt Headedness Gastrointestinal: Denies: Nausea, Vomiting, Abdominal Pain, Diarrhea, Constipation Genitourinary: Denies: Dysuria, Frequency, Incontinence, Retention Hematologic: Denies: Bruising, Bleeding Excessively Musculoskeletal: Denies: Neck Pain, Back Pain, Joint Pain, Muscle Pain, Spasms Neurological: Denies: Weakness, Numbness, Change in speech, Confusion Psych: Reports: Mood Normal; Denies: Depression, Memory Issues Objective Physical Examination General Exam: Positive: Alert Eye Exam: Positive: PERRLA ENT Exam: Positive: Atraumatic Neck Exam: Positive: Supple Chest Exam: Positive: Clear to auscultation Heart Exam: Positive: Rate Normal Abdomen Exam: Positive: Normal bowel sounds, Soft Extremity Exam: Positive: Tenderness Skin Exam: Positive: Nl turgor and temperature Neuro Exam: Positive: Normal Speech Psych Exam: Positive: Mood NL Assessment /Plan Assessment 1. R. toe fracture w/ b/l toe nail separations -continue zosyn - will be going to the OR for possible excision/debridement. 2. Atrial fibrillation - On metoprolol and Eliquis for AC. 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 Hold oral meds. - consistent carbohydrate diet. ISS + ISS. 4. CAD - ASA, crestor, BB. 5. HLD - Crestor. 6. Hypothyroidism - synthroid 7. OA 8. CKD DVT PPX: SCD, elqiuis will be resumed post-op Code status: DNR/DNI Plan/VTE VTE Prophylaxis Ordered?: No VTE Exclusion Mechanical Proph: Other VS, I&O, 24H, Fishbone Vital Signs/I&O Vital Signs Date Time Temp Pulse Resp B/P (MAP) Pulse Ox O2 Delivery O2 Flow Rate FiO2 03/22/20 08:07 141/61 03/22/20 06:00 97.7 66 18 97 Room Air I&O- Last 24 Hours up to 6 AM 03/22/20 06:00 Intake Total 1355 ml Output Total 0 ml Balance 1355 ml Laboratory Data 24H LABS Laboratory Tests 2 03/22/20 06:30: Bedside Glucose Confirm (Misc) 81 Microbiology Microbiology 03/22/20 Respiratory Virus Panel (PCR) ([facility]) - Final, Complete 03/21/20 Urine Culture - Final, Complete 03/20/20 Wound Culture, Received Pending YANELI SANTO DO Mar 22, 2020 12:29
--- NOTE | 2020-03-22 13:54 | CR.PDOC ---
General Date of Consultation: Mar 22, [address] Brock. REASON FOR CONSULTATION/CHIEF COMPLAINT: Left toe wound. HISTORY OF PRESENT ILLNESS: Patient is an 89 year old male sent to [facility] ER from orthopedic office with concern for L. great toe infection. He has had a fracture of his L. toe in January and has been on Augmentin for 2 weeks while following with orthopedic as outpatient. However, his wound did not seem to improve and got progressively more painful with development of erythema on the foot and was sent into the ER. He is very hard of hearing and provides limited history, most is obtained from his daughter in law at bedside. No surgery indicated per ortho for toe fracture, Abx and podiatry consulted for wound care with plan for debridement this afternoon for toe infection and nail separation. Eliquis is on HOLD for this procedure. ALLERGIES: Please see below. HOME MEDICATIONS: Please see below. PAST MEDICAL HISTORY: DM, CAD s/p CABG and stents placement, HTN, Possible h/o CHF, last TTE in [facility] 2013 EF 60-65%, Grade I DD. GERD, Afib on Eliquis CKD PAST SURGICAL HISTORY: cholecystectomy b/l THR cataract surgery SOCIAL HISTORY: Denies tobacco, alcohol or drug use FAMILY HISTORY: mother- DM Father- [place] and CAD REVIEW OF SYSTEMS: As noted in HPI otherwise 11 pt ROS unremarkable. PHYSICAL EXAMINATION: VITAL SIGNS: Please see below. GENERAL APPEARANCE: NAD, lying in bed. HEENT: MMM RESPIRATORY: CTA. CARDIOVASCULAR: irreg irreg S1S2. ABDOMEN: soft, NT. EXTREMITIES: small ulcers noted at both sides of nail, 1st toenail with surrounding erythema of the toes and small amount of bloody drainage. There is some inflammation around the nail of the Rt toe but no open wounds of toes. Monophasic DP/PT BLE. NEUROLOGICAL: moving all extremities, no focal deficits. PSYCHIATRIC: Alert and responsive to questions and commands and answers questions appropriately. LABORATORY DATA: Please see below. Imaging. Arterial US PROCEDURE INFORMATION: Exam: US Duplex Lower Extremity Arteries Or Arterial Bypass Grafts Exam date and time: 03/22/2020 9:00 AM Age: 89 years old Clinical indication: Condition or disease; Peripheral vascular disease; Additional info: Pvd, lt toe ulcer TECHNIQUE: Imaging protocol: Real-time ultrasound scan of the arteries of the bilateral lower extremities with 2-D nam scale, color Doppler flow and spectral waveform analysis. Images documented and saved. COMPARISON: US UNI LOW EXTREM ARTERIAL LIMIT 09/29/2018 11:22 AM FINDINGS: Right common femoral artery: No occlusion or significant stenosis. Biphasic waveform. 140 cm/s. Right superficial femoral artery: No occlusion or significant stenosis. Biphasic waveform. 139, 87 and 64 cm/s. Right popliteal artery: No occlusion or significant stenosis. Biphasic waveform. 99 cm/s. Right calf/foot arteries: Severe 70-80% stenosis at the origin of the right posterior tibial artery with a peak systolic flow velocity of 235 cm/s. Monophasic waveforms. Dorsalis pedis artery is patent. Left common femoral artery: No occlusion or significant stenosis. Biphasic waveform. 153 cm/s. Left superficial femoral artery: No occlusion or significant stenosis. Biphasic waveform. 156, 91 and 68 cm/s. Left popliteal artery: Moderate 50-60% stenosis in the left popliteal artery with a peak systolic flow velocity of 158 cm/s. Monophasic waveform. Left calf/foot arteries: No occlusion or significant stenosis in the visualized arteries. Normal waveforms. Dorsalis pedis artery is patent. 91, 53, 65, 93 and 51 cm/s. IMPRESSION: Extensive scattered atherosclerotic plaque is noted in bilateral lower extremity arterial system. Predominantly biphasic and monophasic arterial waveforms are seen. Severe 70-80% stenosis at the origin of the right posterior tibial artery with a peak systolic flow velocity of 235 cm/s. Moderate 50-60% stenosis in the left popliteal artery with a peak systolic flow velocity of 158 cm/s. ASSESSMENT/PLAN: 1. Left toe wound/PAD Continue IV abx as per Hospitalist. Continue wound mgmt as per Dr Olea. Dr Brock has reviewed arterial US with plan for Angiogram LLE 03/23/20 afternoon. I have d/w Pt and Dtr in Law. Pt would like to proceed. The procedure, risks, benefits, alternatives are discussed. All questions are answered and Informed consent is obtained and placed with the chart. Sally is currently on HOLD. NPO after 6 AM, may have a light breakfast before 6 AM. Recommend to consider gentle hydration overnight related to the Pt's CKD, caution with IVF related to possible h/o CHF. Last TTE 2013 EF 60%, Grade I DD. I have spoken with the Hospitalist Dr Caruso who is agreeable to gentle IVF hydration overnight, 50cc/hr, she will order. Plan to recheck BMP in AM. 2. CKD3. BMP 03/21 GFR 32.2 No labs today. last BMP in system 2018 also with GFR 32. The pt states he does not follow with Nephrology. As above, gentle hydration as per Hospitalist overnight and BMP in AM. Vital Signs/I&O Vital Signs Date Time Temp Pulse Resp B/P (MAP) Pulse Ox O2 Delivery O2 Flow Rate FiO2 03/22/20 08:07 141/61 03/22/20 06:00 97.7 66 18 97 Room Air I&O- Last 24 Hours up to 6 AM 03/22/20 06:00 Intake Total 1355 ml Output Total 0 ml Balance 1355 ml Laboratory Data Labs 24H Laboratory Tests 2 03/22/20 06:30: Bedside Glucose Confirm (Misc) 81 Microbiology Microbiology 03/22/20 Respiratory Virus Panel (PCR) ([facility]) - Final, Complete 03/21/20 Urine Culture - Final, Complete 03/20/20 Wound Culture, Received Pending Allergies Coded Allergies: No Known Allergies (Unverified , 12/21/18) Home Medications Scheduled Apixaban (Eliquis) 2.5 Mg Tab, 2.5 MG PO BID, (Reported) Aspirin (Aspirin EC) 81 Mg Tablet.dr, 81 MG PO DAILY, (Reported) Cephalexin (Keflex) 500 Mg Capsule, 500 MG PO TID for 7 Days, (Reported) Esomeprazole Magnesium (Esomeprazole Magnesium) 40 Mg Capsule.dr, 40 MG PO DAILY, (Reported) Finasteride (Finasteride) 5 Mg Tab, 5 MG PO DAILY, (Reported) Furosemide (Furosemide) 20 Mg Tab, 20 MG PO DAILY, (Reported) Insulin Glargine,Hum.rec.anlog (Toujeo Solostar) 300 Unit/Ml Inj, 70 UNITS SC QHS, (Reported) Insulin Lispro (Humalog Kwikpen U-100) 100 Unit/Ml Inj, 1 DOSE SC AC, (Reported) PER SLIDING SCALE Levothyroxine Sodium (Synthroid) 50 Mcg Tablet, 50 MCG PO DAILY, (Reported) Magnesium Oxide (Magnesium Oxide) 400 Mg Tablet, 400 MG PO DAILY, (Reported) Metoprolol Succinate (Toprol Xl) 25 Mg Tab.er.24h, 25 MG PO DAILY, (Reported) [place]-3 Fatty Acids/Fish Oil ([place] 3 1,000 mg Softgel) 1 Each Capsule, 1 CAP PO BID, (Reported) Rosuvastatin Calcium (Rosuvastatin Calcium) 20 Mg Tablet, 20 MG PO QHS, (Reported) Saxagliptin HCl (Onglyza) 5 Mg Tablet, 5 MG PO DAILY, (Reported) Spironolactone (Spironolactone) 25 Mg Tablet, 25 MG PO DAILY, (Reported) Tamsulosin HCl (Flomax) 0.4 Mg Cap, 0.8 MG PO QHS, (Reported) Felicita Alvarez Mar 22, 2020 13:54
[2020-03-22 14:00] VITALS: BP 162/60
[2020-03-22] MEDS ORDERED: NS 1,000 ML IV SCH (17:00)
[2020-03-22] MEDS ORDERED: fentaNYL 100 MCG/2 ML INJECTION (J3010) As Ordered ONE (18:53)
[2020-03-22] MEDS ORDERED: propofoL 500 MG/50 ML VIAL As Ordered ONE (18:53)
[2020-03-22] MEDS ORDERED: ONDANSETRON 4MG/2ML VIAL As Ordered ONE (18:53)
[2020-03-22] MEDS ORDERED: dexameTHASONE 4 MG/ML 1ML VIAL (J1100 PER 1MG) As Ordered ONE (18:53)
[2020-03-22] MEDS ORDERED: MIDAZOLAM INJ 2MG/2ML VIAL (J2250 PER 1MG) As Ordered ONE (18:54)
[2020-03-22] MEDS ORDERED: LIDOCAINE 1% MDV 20ML VIAL XX ONE (20:02)
[2020-03-22] MEDS ORDERED: BUPIVACAINE HCL 0.5% 10ML VIAL XX ONE (20:03)
[2020-03-22] MEDS ORDERED: fentaNYL 100 MCG/2 ML INJECTION (J3010) IV PRN (20:30)
[2020-03-22] MEDS ORDERED: ONDANSETRON 4MG/2ML VIAL IV PRN (20:30)
[2020-03-22 20:35] VITALS: BP 159/63
[2020-03-22 21:00] VITALS: BP 157/63
[2020-03-22] MEDS: TAMSULOSIN 0.4 MG CAP PO SCH (22:48)
[2020-03-22] MEDS: ACETAMINOPHEN TAB 650MG DOSE (2X325MG) PO PRN (22:48)
[2020-03-22] MEDS: ROSUVASTATIN 10 MG TAB (CRESTOR) PO SCH (22:49)
[2020-03-23] VITALS (8 sets, daily range): BP systolic 138–155; BP diastolic 52–69
[2020-03-23] MEDS: PIPERACILLIN/TAZOBACTAM SOD 3.375 GM in D5W MINI-BAG PLUS 50 ML IV SCH ×2 (00:51→05:39)
[2020-03-23] MEDS: LEVOTHYROXINE 50MCG TABLET (0.05MG) PO SCH (05:39)
[2020-03-23] MEDS ORDERED: AMPICILLIN SOD/SULBACTAM SOD 3 GM in D5W MINI-BAG PLUS 100 ML IV SCH (08:00)
[2020-03-23 08:15] LABS: CALCIUM LEVEL 8.7 MG/DL (8.8-10.2); CREATININE FOR GFR 2.31 MG/DL (0.70-1.30); GLOMERULAR FILTRATION RATE 28.5 (>35); POTASSIUM SERUM 5.1 MEQ/L (3.5-5.1)
[2020-03-23 08:47] LABS: BASO % 0.2 % (0.0-1.0); HEMOGLOBIN 13.7 g/dl (13.5-17.5); LYMPH # 0.8 10^3/uL (1.5-5.0); LYMPH % 8.1 % (24.0-44.0); MEAN CORPUSCULAR HEMOGLOBIN 28.9 pg (27.0-33.0); MEAN CORPUSCULAR HGB CONC 33.4 g/dl (32.0-36.5); MEAN CORPUSCULAR VOLUME 86.5 fl (80.0-96.0); MONO # 0.1 10^3/uL (0.0-0.8); MONO % 1.3 % (0.0-5.0); NEUTROPHILS # 9.1 10^3/uL (1.5-8.5); NEUTROPHILS % 89.6 % (36.0-66.0); PLATELET COUNT, AUTOMATED 277 10^3/uL (150-450); RED BLOOD COUNT 4.74 10^6/uL (4.30-6.10); WHITE BLOOD COUNT 10.1 10^3/uL (4.0-10.0)
[2020-03-23] MEDS: OMEGA-3 1000MG CAPSULE PO SCH ×2 (09:00→21:27)
[2020-03-23] MEDS: HumaLOG INSULIN (NovoLOG) PER UNIT SC SCH ×4 (09:32→21:28)
[2020-03-23] MEDS: AMPICILLIN SOD/SULBACTAM SOD 3 GM in D5W MINI-BAG PLUS 100 ML IV SCH ×2 (09:32→21:28)
[2020-03-23] MEDS: METOPROLOL SUCC *XL* 25MG TAB (TopROL *XL*) PO SCH (12:16)
[2020-03-23] MEDS: ACETAMINOPHEN TAB 650MG DOSE (2X325MG) PO PRN ×2 (12:17→22:36)
[2020-03-23] MEDS ORDERED: ISOVUE-300 61% 50ML VIAL As Ordered ONE (12:57)
[2020-03-23] MEDS ORDERED: LIDOCAINE 1% MDV 20ML VIAL As Ordered ONE (12:58)
--- NOTE | 2020-03-23 13:16 | IPNPDOC ---
Subjective Date Seen The patient was seen on 03/23/20. Subjective Chief Complaint/HPI toe pain Events since last encounter tolerated procedure well. no overnight events General: Reports: Normal Appetite; Denies: Chills, Night Sweats, Fatigue, Malaise Constitutional: Denies: Chills, Fever, Night Sweats Eyes: Denies: Pain, Vision change ENT: Denies: Head Aches, Ear Pain, Dysphagia Skin: Denies: Rash, Lesions, Breakdown Pulmonary: Denies: Dyspnea, Cough Cardiovascular: Denies: Chest Pain, Palpitations, Orthopnea, Paroxysmal Noc. Dyspnea, Lt Headedness Gastrointestinal: Denies: Nausea, Vomiting, Abdominal Pain, Diarrhea, Const ipation Genitourinary: Denies: Dysuria, Frequency, Incontinence, Retention Neurological: Denies: Weakness, Numbness, Change in speech, Confusion Psych: Reports: Mood Normal; Denies: Depression, Memory Issues Objective Physical Examination General Exam: Positive: Alert Eye Exam: Positive: PERRLA ENT Exam: Positive: Atraumatic Neck Exam: Positive: Supple Chest Exam: Positive: Clear to auscultation Heart Exam: Positive: Rate Normal Telemetry: Positive: No significant arrhythmia Abdomen Exam: Positive: Normal bowel sounds, Soft Male Exam: Positive: Normal Genital Exam Extremity Exam: Positive: Tenderness, Other (left toe in dressing ) Skin Exam: Positive: Nl turgor and temperature Neuro Exam: Positive: Normal Speech Psych Exam: Positive: Mood NL Assessment /Plan Assessment 1. R. toe fracture w/ b/l toe nail separations -changed antibiotics to unasyn - vascular to do CTA today and plan on interventions accordingly 2. Atrial fibrillation - On metoprolol and Eliquis for AC. 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 Hold oral meds. - consistent carbohydrate diet. ISS + ISS. 4. CAD - ASA, crestor, BB. 5. HLD - Crestor. 6. Hypothyroidism - synthroid 7. OA 8. CKD DVT PPX: SCD, elqiuis will be resumed post-op Code status: DNR/DNI Plan/VTE VTE Prophylaxis Ordered?: No VTE Exclusion Mechanical Proph: Other VS, I&O, 24H, Fishbone Vital Signs/I&O Vital Signs Date Time Temp Pulse Resp B/P (MAP) Pulse Ox O2 Delivery O2 Flow Rate FiO2 8/21/20 12:16 57 139/55 03/23/20 10:00 98.3 18 98 Room Air 03/22/20 19:58 10 I&O- Last 24 Hours up to 6 AM 03/23/20 06:00 Intake Total 795 ml Output Total 0 ml Balance 795 ml Laboratory Data 24H LABS Laboratory Tests 2 03/23/20 07:08: Immature Granulocyte % (Auto) 0.8, Neutrophils (%) (Auto) 89.6H, Lymphocytes (%) (Auto) 8.1L, Monocytes (%) (Auto) 1.3, Eosinophils (%) (Auto) 0.0, Basophils (%) (Auto) 0.2, Neutrophils # (Auto) 9.1H, Lymphocytes # (Auto) 0.8L, Monocytes # (Auto) 0.1, Eosinophils # (Auto) 0.0, Basophils # (Auto) 0.0, Nucleated Red Blood Cells % (auto) 0.0, Anion Gap 6L, Glomerular Filtration Rate 28.5L, Calcium Level 8.7L CBC/BMP Laboratory Tests 03/23/20 07:08 Microbiology Microbiology 03/22/20 Gram Stain - Final, Resulted 03/22/20 Wound Culture, Resulted Pending 03/22/20 Anaerobic Culture, Resulted Pending 03/22/20 Respiratory Virus Panel (PCR) ([facility]) - Final, Complete 03/21/20 Urine Culture - Final, Complete 03/20/20 Wound Culture - Final, Complete Staphylococcus Aureus Enterococcus Faecalis YANELI SANTO DO Mar 23, 2020 13:16
[2020-03-23] MEDS ORDERED: MIDAZOLAM INJ 2MG/2ML VIAL (J2250 PER 1MG) As Ordered ONE (13:18)
[2020-03-23] MEDS ORDERED: fentaNYL 100 MCG/2 ML INJECTION (J3010) As Ordered ONE (13:18)
[2020-03-23] MEDS ORDERED: ATROPINE SULF 1MG/10ML SYRINGE (J0461) As Ordered ONE (14:19)
--- NOTE | 2020-03-23 15:51 | ROOPDOC ---
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 Ultrasound-guided access right common femoral artery 2. Aortoiliofemoral arteriogram with selection left common femoral artery and left lower extremity runoff 3. 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 Mynx closure right common femoral artery SURGEON: Laurence Brock MD ANESTHESIA: Local anesthesia 5 mL lidocaine. Moderate intravenous conscious sedation was supervised by Dr. Brock. The patient was independently monitored by registered nurse assigned to the Department of radiology using automated blood pressure, EKG, and pulse oximetry. The details sedation record is permanently stored in the hospital information system. The following is a brief sedation record: Start time 1401, stop time 1442, Versed 0.5 mg IV, fentanyl 25 g IV. INDICATION FOR PROCEDURE: This is a very pleasant 89-year-old gentleman with left lower extremity atherosclerosis of nisqu[place] arteries and non-healing left foot. The patient had an arterial duplex that did reveal heavy calcification of the vessels and concern for limited flow in the tibial vessels, but due to bulky plaque and calcification it is not clear exactly how much flow he has in the left lower extremity and whether or not this can be improved upon by an endovascular or open surgical option. In order to provide limb salvage, and give the best recommendations for further surgical intervention or to provide en dovascular intervention, and arteriogram was recommended. If we are able to intervene, we will do this on the same procedure. If we are not able to offer her an endovascular solution, we will use the images to plan for possible open surgical intervention. After extensive discussion of the risks benefits and alternatives, informed consent was obtained. We do take special consideration of this patient as he has mild dementia, he is very hard of hearing, he has trouble laying flat, he has significant renal insufficiency. We will use is minimal contrast as possible. We will slightly elevate his head and chest to try and make him more comfortable. We will have someone at his good ear reassuring him throughout the case to help him feel more comfortable. Additionally, the patient comes to the IR suite with a heart rate in the 40s, persistent, status post administration of beta emily at noon despite heart rate less than 60 while he was on the floor. He is asymptomatic from this, and blood pressure stable, so I think it is safe to proceed but we will have atropine handy and we'll stop the procedure if we feel he is hemodynamically unstable. INTERPRETATION: 1. Although extremely tortuous, the aortoiliac segments are widely patent. There is excellent flow through the distal aorta into the common iliac arteries, hypogastric arteries, and external iliac arteries bilaterally. 2. The left common femoral artery is calcified but widely patent, with good flow into a calcified ectatic profunda, but very limited flow through the origin of the left superficial femoral artery due to a heavy concentration of bulky near occlusive plaque for proximally 3 cm at the origin. Distal to this, there is heavy calcification and ectasia, but no obvious stenosis is noted. The popliteal arteries also heavily calcified and ectatic, but patent. The distal popliteal artery becomes stenotic and runs off exclusively into a stenotic tibioperoneal trunk, which has near occlusive heavy bulky ball of plaque at the distal aspect near the origins of the peroneal and posterior tibial artery. Despite this, there is some flow around this into both the posterior tibial and peroneal art chance, which are heavily calcified but patent and do runoff to the foot. The anterior tibial artery is occluded at its origin and does reconstitute at the ankle from collaterals from the peroneal artery. There is flow into the plantar vessels of the foot, but it is not robust. He could certainly benefit from improved inflow, tibial flow, and runoff into the foot. REPORT OF OPERATION: The patient was brought to the angiographic suite in stable condition. His bilateral groins were prepped and draped in a sterile fashion. A timeout was performed. Sedation was administered without complication. Local anesthesia was administered to the skin and subcutaneous tissue over the right common femoral artery. A microneedle was used to access the artery under ultrasound guidance. A wire was passed through this access and the needle was removed. A 4 Monegasque micro-sheath was placed and flushed with saline. A Glidewire was advanced under fluoroscopic guidance into the aorta. A flushing catheter was advanced over the wire into the distal aorta. Aortoiliofemoral arteriograms were performed, please see interpretation above. We then use the catheter and the Glidewire to go up and over the bifurcation and selected the left common femoral artery. Left lower extremity arteriogram and runoffs were performed. Please see interpretation above. We then attempted to cross through the heavy calcified occlusive plaque at the origin of left superficial femoral artery. We spent about 35 minutes attempting to find a small opening to access and crossed through the plaque. We utilize multiple catheters, but despite aggressive efforts, we were not able to cross the heavy bulky plaque. Therefore, we exchanged the sheath over the wire for a 5 Monegasque sheath and flushed the sheath with saline. Mynx closure device was deployed in the right common femoral artery. Pressure was held for 5 minutes and good hemostasis was achieved. Ster ile dressings were applied. The patient tolerated the procedure and the sedation well. CONTRAST: 18 mL Isovue-300 ESTIMATED BLOOD LOSS: Approximately 4 mL. COMPLICATIONS: None. PLAN: We will monitor the patient postprocedure and return him to his hospital room once mental status is at his baseline. The patient was sent down to the IR suite with heart rate in the 40s, and is remained in the 40s. Apparently, he received a dose of beta emily from the nurse on the floor at noon today despite heart rate less than 60, and this has resulted in some persistent bradycardia, but the patient is asymptomatic from this and is blood pressure has remained stable. Despite this, he did well with the procedure and the sedation. I have spoken to the patient's [id number] Graciela about the fact that we were not able to cross his occlusion in the left superficial femoral artery. Unfortunately, if we want to attempt further revascularization, I would recommend open surgery with a left common femoral and superficial femoral artery endarterectomy. This will restore inflow to the lower extremity, but he still has severe tibial disease to contend with. There is some flow around the bulky calcified plaque at the distal tibioperoneal trunk leading into the posterior tibial artery and peroneal artery, and I would not recommend further intervention for those due to risk of occlusion, embolization, and vascular perforation. However, he has a complete occlusion of the anterior tibial artery and I do think it might be worthwhile to try and open this up with an endovascular approach. This would be challenging, and not necessarily successful, but if we could restore in-line load the foot through at least one tibial vessel, this would definitely help with healing after Dr. Olea's surger y. However, the patient has extensive medical comorbidities, he is a late year octogenarian, and general anesthesia has significant risks for him. I will discuss options for open surgical intervention with the hospitalist team, Dr. Olea, and the patient and his family. Further recommendations to follow. He will need cardiac clearance prior to general anesthesia, and a stress test if he has not had one within the last year. For now, bedrest until 1700, no strenuous exercise or lifting greater than 5 pounds for 48 hours, it is okay to remove the dressing and shower starting tomorrow from a vascular standpoint. We appreciate the opportunity to participate in the care of this patient. LAURENCE BROCK MD Mar 23, 2020 15:51
[2020-03-23] MEDS: FUROSEMIDE 20 MG TAB PO SCH (16:13)
[2020-03-23] MEDS: ASPIRIN 81 MG ENTERIC TAB PO SCH (16:14)
[2020-03-23] MEDS: MAGNESIUM OXIDE 400 MG TAB (MAG-OX) PO SCH (16:14)
[2020-03-23] MEDS: FINASTERIDE 5 MG TAB PO SCH (16:15)
[2020-03-23] MEDS: SPIRONOLACTONE 25 MG TAB PO SCH (16:15)
[2020-03-23] MEDS ORDERED: LEVEMIR (INSULIN DETEMIR) 1 UNITS/0.01ML SC SCH (21:00)
[2020-03-23] MEDS: TAMSULOSIN 0.4 MG CAP PO SCH (21:27)
[2020-03-23] MEDS: ROSUVASTATIN 10 MG TAB (CRESTOR) PO SCH (21:27)
[2020-03-24 02:00] VITALS: BP 139/55
[2020-03-24] MEDS: LEVOTHYROXINE 50MCG TABLET (0.05MG) PO SCH (05:20)
[2020-03-24 06:00] VITALS: BP 145/51
[2020-03-24] MEDS: HumaLOG INSULIN (NovoLOG) PER UNIT SC SCH ×4 (07:18→20:27)
[2020-03-24] MEDS: AMPICILLIN SOD/SULBACTAM SOD 3 GM in D5W MINI-BAG PLUS 100 ML IV SCH (08:25)
[2020-03-24] MEDS: FINASTERIDE 5 MG TAB PO SCH (08:25)
[2020-03-24] MEDS: FUROSEMIDE 20 MG TAB PO SCH (08:25)
[2020-03-24] MEDS: MAGNESIUM OXIDE 400 MG TAB (MAG-OX) PO SCH (08:25)
[2020-03-24] MEDS: SPIRONOLACTONE 25 MG TAB PO SCH (08:25)
[2020-03-24] MEDS: OMEGA-3 1000MG CAPSULE PO SCH ×2 (08:26→20:27)
[2020-03-24] MEDS: ASPIRIN 81 MG ENTERIC TAB PO SCH (08:26)
[2020-03-24] MEDS: METOPROLOL SUCC *XL* 25MG TAB (TopROL *XL*) PO SCH (08:28)
[2020-03-24 14:00] VITALS: BP 130/49
[2020-03-24 18:51] LABS: ALBUMIN 3.2 GM/DL (3.2-5.2); BILIRUBIN,DIRECT 0.2 MG/DL (0.0-0.2); BILIRUBIN,TOTAL 0.7 MG/DL (0.2-1.0); C REACTIVE PROTEIN QUANTITATIV 8.75 MG/DL (0.00-0.30); CALCIUM LEVEL 9.2 MG/DL (8.8-10.2); CREATININE FOR GFR 2.14 MG/DL (0.70-1.30); GLOMERULAR FILTRATION RATE 31.1 (>35); POTASSIUM SERUM 4.8 MEQ/L (3.5-5.1); TOTAL PROTEIN 7.3 GM/DL (6.4-8.2)
--- NOTE | 2020-03-24 18:57 | IPNPDOC ---
Subjective Date Seen The patient was seen on 03/24/20. Subjective Chief Complaint/HPI right toe fracture s/p toe amputation Events since last encounter no overnight events General: Reports: Normal Appetite; Denies: Chills, Night Sweats, Fatigue, Malaise Constitutional: Denies: Chills, Fever, Night Sweats Eyes: Denies: Pain, Vision change ENT: Denies: Head Aches, Ear Pain, Dysphagia Skin: Denies: Rash, Lesions, Breakdown Pulmonary: Denies: Dyspnea, Cough Cardiovascular: Denies: Chest Pain, Palpitations, Orthopnea, Paroxysmal Noc. Dyspnea, Lt Headedness Gastrointestinal: Denies: Nausea, Vomiting, Abdominal Pain, Diarrhea, Constipation, Melena, Hematochezia, Other Symptoms Genitourinary: Denies: Dysuria, Frequency, Incontinence, Retention Hematologic: Denies: Bruising, Bleeding Excessively Musculoskeletal: Denies: Neck Pain, Back Pain, Joint Pain, Muscle Pain, Spasms Neurological: Denies: Weakness, Numbness, Change in speech, Confusion Psych: Reports: Mood Normal; Denies: Depression, Memory Issues Objective Physical Examination General Exam: Positive: Alert Eye Exam: Positive: PERRLA ENT Exam: Positive: Atraumatic Neck Exam: Positive: Supple Chest Exam: Positive: Clear to auscultation Heart Exam: Positive: Rate Normal Telemetry: Positive: No significant arrhythmia Abdomen Exam: Positive: Normal bowel sounds, Soft Male Exam: Positive: Normal Genital Exam Extremity Exam: Positive: Tenderness, Other (left toe in dressing ) Skin Exam: Positive: Nl turgor and temperature Neuro Exam: Positive: Normal Speech Psych Exam: Positive: Mood NL Assessment /Plan Assessment 1. R. toe fracture w/ b/l toe nail separations -changed antibiotics to augmentin - vascular recomends open endartectomy. cardiac risk - high risk, no recept stress test and previous hx of CABG. recommend outpatient stress testing and cardiology risk assesment prior to surgery. 2. Atrial fibrillation - On metoprolol and Eliquis for AC. 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 Hold oral meds. - consistent carbohydrate diet. ISS + ISS. 4. CAD - ASA, crestor, BB. 5. HLD - Crestor. 6. Hypothyroidism - synthroid 7. OA 8. CKD DVT PPX: eliquis resumed Code status: DNR/DNI Plan/VTE VTE Prophylaxis Ordered?: No VTE Exclusion Mechanical Proph: Other Disposition discharge tomorrow VS, I&O, 24H, Fishbone Vital Signs/I&O Vital Signs Date Time Temp Pulse Resp B/P (MAP) Pulse Ox O2 Delivery O2 Flow Rate FiO2 03/24/20 14:00 98.1 61 17 130/49 (76) 98 Room Air 03/23/20 14:50 2 I&O- Last 24 Hours up to 6 AM 03/24/20 06:00 Intake Total 1110 ml Output Total 1300 ml Balance -190 ml Laboratory Data Microbiology Microbiology 03/22/20 Gram Stain - Final, Resulted 03/22/20 Wound Culture, Resulted Pending 03/22/20 Anaerobic Culture - Final, Resulted 03/22/20 Respiratory Virus Panel (PCR) ([facility]) - Final, Complete 03/21/20 Urine Culture - Final, Complete 03/20/20 Wound Culture - Final, Complete Staphylococcus Aureus Enterococcus Faecalis YANELI SANTO DO Mar 24, 2020 18:57
[2020-03-24] MEDS: ACETAMINOPHEN TAB 650MG DOSE (2X325MG) PO PRN (20:26)
[2020-03-24] MEDS: TAMSULOSIN 0.4 MG CAP PO SCH (20:26)
[2020-03-24] MEDS: ROSUVASTATIN 10 MG TAB (CRESTOR) PO SCH (20:27)
[2020-03-24] MEDS: LEVEMIR (INSULIN DETEMIR) 1 UNITS/0.01ML SC SCH (20:27)
[2020-03-24] MEDS: AUGMENTIN 875 MG TAB PO SCH (20:27)
[2020-03-24] MEDS: APIXABAN 2.5 MG TAB (ELIQUIS) PO SCH (20:27)
[2020-03-24 22:00] VITALS: BP 165/88
[2020-03-25] MEDS: LEVOTHYROXINE 50MCG TABLET (0.05MG) PO SCH (05:39)
[2020-03-25] MEDS: ACETAMINOPHEN TAB 650MG DOSE (2X325MG) PO PRN (05:40)
[2020-03-25 06:00] VITALS: BP 152/77
[2020-03-25] MEDS: AUGMENTIN 875 MG TAB PO SCH (08:29)
[2020-03-25] MEDS: SPIRONOLACTONE 25 MG TAB PO SCH (08:31)
[2020-03-25] MEDS: FINASTERIDE 5 MG TAB PO SCH (08:31)
[2020-03-25] MEDS: MAGNESIUM OXIDE 400 MG TAB (MAG-OX) PO SCH (08:31)
[2020-03-25 08:32] VITALS: BP 152/77
[2020-03-25] MEDS: APIXABAN 2.5 MG TAB (ELIQUIS) PO SCH (08:32)
[2020-03-25] MEDS: OMEGA-3 1000MG CAPSULE PO SCH (08:32)
[2020-03-25] MEDS: METOPROLOL SUCC *XL* 25MG TAB (TopROL *XL*) PO SCH (08:32)
[2020-03-25] MEDS: ASPIRIN 81 MG ENTERIC TAB PO SCH (08:32)
[2020-03-25] MEDS: FUROSEMIDE 20 MG TAB PO SCH (08:33)
[2020-03-25] MEDS: LEVEMIR (INSULIN DETEMIR) 1 UNITS/0.01ML SC SCH (08:34)
[2020-03-25] MEDS: HumaLOG INSULIN (NovoLOG) PER UNIT SC SCH ×2 (08:35→12:38)
[2020-03-25] MEDS ORDERED: CEPHALEXIN 500 MG CAP PO SCH (10:00)
[2020-03-25 10:02] LABS: BASO # 0.1 10^3/uL (0.0-0.2); BASO % 0.5 % (0.0-1.0); EOS # 0.2 10^3/uL (0.0-0.5); EOS % 2.3 % (0.0-3.0); HEMATOCRIT 40.3 % (42.0-52.0); HEMOGLOBIN 13.2 g/dl (13.5-17.5); LYMPH # 1.7 10^3/uL (1.5-5.0); LYMPH % 16.8 % (24.0-44.0); MEAN CORPUSCULAR HEMOGLOBIN 28.6 pg (27.0-33.0); MEAN CORPUSCULAR HGB CONC 32.8 g/dl (32.0-36.5); MEAN CORPUSCULAR VOLUME 87.2 fl (80.0-96.0); MONO # 0.6 10^3/uL (0.0-0.8); NEUTROPHILS # 7.5 10^3/uL (1.5-8.5); NEUTROPHILS % 73.5 % (36.0-66.0); PLATELET COUNT, AUTOMATED 288 10^3/uL (150-450); RED BLOOD COUNT 4.62 10^6/uL (4.30-6.10); WHITE BLOOD COUNT 10.2 10^3/uL (4.0-10.0)
[2020-03-25] MEDS ORDERED: AMOX875T2 PO (10:16)
[2020-03-25] MEDS ORDERED: ONGL1TAB9 PO (10:16)
[2020-03-25] MEDS ORDERED: KEFL500C17 PO (10:16)
[2020-03-25 10:19] LABS: CALCIUM LEVEL 8.9 MG/DL (8.8-10.2); CREATININE FOR GFR 2.07 MG/DL (0.70-1.30); GLOMERULAR FILTRATION RATE 32.3 (>35); POTASSIUM SERUM 4.8 MEQ/L (3.5-5.1)
[2020-03-25] MEDS ORDERED: DOXY-350 PO (10:46)
[2020-03-25] MEDS ORDERED: DOXYCYCLINE HYCLATE 100MG TABLET PO SCH (18:00)
--- NOTE | 2020-03-25 19:21 | DS.PDOC ---
Discharge Summary General Date of Admission Mar 21, 2020 at 01:40 Date of Discharge 03/25/20 Discharge Summary PROCEDURES PERFORMED DURING STAY: [None]. ADMITTING DIAGNOSES: 1. left toe infection DISCHARGE DIAGNOSES: 1. left toe fracture s/p debridement COMPLICATIONS/CHIEF COMPLAINT: Cellulitis Of Left Toe. HISTORY OF PRESENT ILLNESS: patient presented for concenrs of non healing toe fracture with concerns of infection. HOSPITAL COURSE: podiatry and vascular were consulted. clinical course concerning for osteomyelitis of joint6 francture and was started on IV antibiotics initially. podiatry was consulted for wound debridement and will be discharged with hardware in place. vascular services who noted significaant stenosis in lefty limb and recommended open endarterectomy. given high risk of cardiac event, recommended outpatient stress testing prior to endartectomy. continue organism targeted antibiotics for treatment of osteomyelitis: doxycycline for 6 weeks in the setting of infected fracture and retained hardware. f/u with podiatry for wound care. f/u with writing manager for pre-op cardiac risk assessment. PCP within 1 week DISCHARGE MEDICATIONS: Please see below. ALLERGIES: Please see below. PHYSICAL EXAMINATION ON DISCHARGE: VITAL SIGNS: Please see below. GENERAL: no acute distress HEENT:normocephalic NECK: no masses CARDIOVASCULAR EXAMINATION:rrrr RESPIRATORY EXAMINATION: no wheezess ABDOMINAL EXAMINATION: soft, non tender EXTREMITIES: left foot in dressing SKIN: intact NEUROLOGICAL EXAMINATION: no focal defecits PSYCHIATRIC EXAMINATION: stable LABORATORY DATA: Please see below. IMAGING: CTA reviewed Vital Signs Date Time Temp Pulse Resp B/P (MAP) Pulse Ox O2 Delivery O2 Flow Rate FiO2 03/25/20 08:32 61 152/77 03/25/20 06:00 97.8 61 20 152/77 (102) 94 Room Air 03/24/20 22:00 98.2 50 20 165/88 (113) 94 Room Air Intake & Output 03/25/20 06:00 Intake Total 1200 ml Output Total 2350 ml Balance -1150 ml Laboratory Tests 03/25/20 09:26: White Blood Count 10.2H, Red Blood Count 4.62, Hemoglobin 13.2L, Hematocrit 40.3L, Mean Corpuscular Volume 87.2, Mean Corpuscular Hemoglobin 28.6, Mean Corpuscular Hemoglobin Concent 32.8, Red Cell Distribution Width 14.2, Platelet Count 288, Immature Granulocyte % (Auto) 0.9, Neutrophils (%) (Auto) 73.5H, Lymphocytes (%) (Auto) 16.8L, Monocytes (%) (Auto) 6.0H, Eosinophils (%) (Auto) 2.3, Basophils (%) (Auto) 0.5, Neutrophils # (Auto) 7.5, Lymphocytes # (Auto) 1.7, Monocytes # (Auto) 0.6, Eosinophils # (Auto) 0.2, Basophils # (Auto) 0.1, Nucleated Red Blood Cells % (auto) 0.0, Sodium Level 138, Potassium Level 4.8, Chloride Level 103, Carbon Dioxide Level 26, Anion Gap 9, Blood Urea Nitrogen 43H, Creatinine 2.07H, Glomerular Filtration Rate 32.3L, Fasting Glucose 259H, Calcium Level 8.9 Microbiology 03/22/20 Gram Stain - Final, Complete 03/22/20 Wound Culture - Final, Complete Staphylococcus Aureus Enterococcus Faecalis 03/22/20 Anaerobic Culture - Final, Complete 03/22/20 Respiratory Virus Panel (PCR) ([facility]) - Final, Complete 03/21/20 Urine Culture - Final, Complete 03/20/20 Wound Culture - Final, Complete Staphylococcus Aureus Enterococcus Faecalis PROGNOSIS: stable ACTIVITY: [As tolerated]. DIET:diebetic DISCHARGE PLAN: 24hrcare by family doxycycline for 6 weeks in the setting of infected fracture and retained hardware. f/u with podiatry for wound care. f/u with writing manager for pre-op cardiac risk assessment. PCP within 1 week DISPOSITION: [address] [place] [address] Service. DISCHARGE INSTRUCTIONS: doxycycline for 6 weeks in the setting of infected fracture and retained hardware. f/u with podiatry for wound care. f/u with writing manager for pre-op cardiac risk assessment. PCP within 1 week ITEMS TO FOLLOWUP ON ON OUTPATIENT: 1. cardiac risk assessment 2. wound care DISCHARGE CONDITION: [Stable]. TIME SPENT ON DISCHARGE: Greater than 30 minutes. Vital Signs/I&Os Vital Signs Date Time Temp Pulse Resp B/P (MAP) Pulse Ox O2 Delivery O2 Flow Rate FiO2 03/25/20 08:32 61 152/77 03/25/20 06:00 97.8 20 94 Room Air 03/23/20 14:50 2 I&O- Last 24 Hours up to 6 AM 03/25/20 06:00 Intake Total 1200 ml Output Total 2350 ml Balance -1150 ml Laboratory Data Labs 24H Laboratory Tests 2 03/25/20 09:26: Immature Granulocyte % (Auto) 0.9, Neutrophils (%) (Auto) 73.5H, Lymphocytes (%) (Auto) 16.8L, Monocytes (%) (Auto) 6.0H, Eosinophils (%) (Auto) 2.3, Basophils (%) (Auto) 0.5, Neutrophils # (Auto) 7.5, Lymphocytes # (Auto) 1.7, Monocytes # (Auto) 0.6, Eosinophils # (Auto) 0.2, Basophils # (Auto) 0.1, Nucleated Red Blo od Cells % (auto) 0.0, Anion Gap 9, Glomerular Filtration Rate 32.3L, Calcium Level 8.9 CBC/BMP Laboratory Tests 03/25/20 09:26 Microbiology Microbiology 03/22/20 Gram Stain - Final, Complete 03/22/20 Wound Culture - Final, Complete Staphylococcus Aureus Enterococcus Faecalis 03/22/20 Anaerobic Culture - Final, Complete 03/22/20 Respiratory Virus Panel (PCR) ([facility]) - Final, Complete 03/21/20 Urine Culture - Final, Complete 03/20/20 Wound Culture - Final, Complete Staphylococcus Aureus Enterococcus Faecalis Discharge Medications Scheduled Apixaban (Eliquis) 2.5 Mg Tab, 2.5 MG PO BID, (Reported) Aspirin (Aspirin EC) 81 Mg Tablet.dr, 81 MG PO DAILY, (Reported) Doxycycline Monohydrate (Doxycycline) 100 Mg Capsule, 100 MG PO BID Esomeprazole Magnesium (Esomeprazole Magnesium) 40 Mg Capsule.dr, 40 MG PO DAILY, (Reported) Finasteride (Finasteride) 5 Mg Tab, 5 MG PO DAILY, (Reported) Furosemide (Furosemide) 20 Mg Tab, 20 MG PO DAILY, (Reported) Insulin Glargine,Hum.rec.anlog (Toujeo Solostar) 300 Unit/Ml Inj, 70 UNITS SC QHS, (Reported) Insulin Lispro (Humalog Kwikpen U-100) 100 Unit/Ml Inj, 1 DOSE SC AC, (Reported) PER SLIDING SCALE Levothyroxine Sodium (Synthroid) 50 Mcg Tablet, 50 MCG PO DAILY, (Reported) Magnesium Oxide (Magnesium Oxide) 400 Mg Tablet, 400 MG PO DAILY, (Reported) Metoprolol Succinate (Toprol Xl) 25 Mg Tab.er.24h, 25 MG PO DAILY, (Reported) [place]-3 Fatty Acids/Fish Oil ([place] 3 1,000 mg Softgel) 1 Each Capsule, 1 CAP PO BID, (Reported) Rosuvastatin Calcium (Rosuvastatin Calcium) 20 Mg Tablet, 20 MG PO QHS, (Reported) Saxagliptin HCl (Onglyza) 5 Mg Tablet, 5 MG PO DAILY, (Reported) Spironolactone (Spironolactone) 25 Mg Tablet, 25 MG PO DAILY, (Reported) Tamsulosin HCl (Flomax) 0.4 Mg Cap, 0.8 MG PO QHS, (Reported) Allergies Coded Allergies: No Known Allergies (Unverified , 12/21/18) YANELI SANTO DO Mar 25, 2020 19:21
--- NOTE | 2020-04-10 14:40 | CR ---
DATE: 03/21/2020 REASON FOR CONSULTATION: Left hallux fracture and laceration. HISTORY OF PRESENT ILLNESS: Jani Fonseca is a pleasant 89-year-old male who was admitted to the hospital due to worsening toe infection. He has been seen by orthopedics for the same. He had a fracture of his toe he believes in January of this year. He had been treated with Augmentin and has been treated with a surgical shoe. The wound and toe have progressively gotten worse and he was sent to the hospital for this. He states it does not seem to hurt him very much. MEDICAL HISTORY: Significant for diabetes, coronary artery disease, history of CABG and stents, hypertension, GERD, CHF and atrial fibrillation. SURGICAL HISTORY: Cholecystectomy, THR and cataract surgery. SOCIAL HISTORY: He denies smoking or alcohol use. FAMILY HISTORY: Positive for diabetes. ALLERGIES: No known drug allergies. VITALS: Reviewed. He has been afebrile. LABORATORY DATA: Labs are reviewed. White blood cell count is 9.8, hemoglobin 12.8. PHYSICAL EXAMINATION: Lower extremity examination on the left side, pedal pulses are nonpalpable. There is delayed capillary refill to the left hallux with some local erythema. There is an unstable fracture at the hallux IPJ level, with flexion of the toenail the joint and bone are visible. ASSESSMENT: An 89-year-old male with left hallux fracture infection and unstable joint as well as diabetes and peripheral vascular disease. PLAN: Will order new x-ray. Tentative plan is for OR tomorrow for fracture stabilization most likely with percutaneous pin fixation and irrigation of wound. He has been on Zosyn. Will try to take new wound cultures in the OR. Will order vascular studies to assess peripheral vasculature. If not normal, will plan vascular consultation as this may be a factor in his poor wound healing. It was discussed at length that this is a salvage situation, his toe is at high risk for amputation given his sluggish capillary refill and infection. Patients son was at bedside during discussion. He is to be NPO after breakfast at 8 a.m. tomorrow. PHONG
--- NOTE | 2020-04-10 14:46 | IPN ---
DATE: 03/23/2020 HISTORY OF PRESENT ILLNESS: Patient seen and examined at bedside. He had his angiogram earlier today. Spoke with Dr. Brock, improved blood flow was unable to be obtained through the procedure due to calcification. Vitals are reviewed. He has remained afebrile. Labs are reviewed. White blood cell count 10.1. Creatinine 2.31. Lower extremity examination pins are stable in the hallux. The toe remains somewhat dusky, without good capillary refill. ASSESSMENT: An 89-year-old male with peripheral vascular disease, toe fracture with osteomyelitis; status post fracture stabilization. PLAN: Await full operative wound cultures. Lengthy discussion had with patient and his [id number] regarding treatment options. Spoke with Dr. Brock as well. The best situation for his foot would be to have improved blood flow. This maybe obtainable through endarterectomy or other procedures per vascular. Given his age and other comorbidities, he does carry moderate surgical risk. Ultimately I am not optimistic that without further intervention, his toe will do well. I am not optimistic that if a hallux amputation was required that he has the blood flow to heal this procedure. That said, he may not have the ability to have adequate reperfusion nonetheless. Ideally if he is a candidate, he can have revascularization with potential healing of his toe and infection or at the bare minimum potential healing of a toe amputation. He is to have further discussion with his son and family and vascular surgery, and ultimately come up with plan catered to his desires. In the meantime, continue antibiotics, await culture results and will follow. PHONG
--- NOTE | 2020-04-11 16:13 | ECGEPIP ---
[facility] [place] - ED Test Date: 2020-03-20 Pat Name: JADEN NORMAN Department: Room: [place] [address] Gender: Male Service Member: ANAHI : 1930 Requested By: BRYAN Jay Order Number: [id number] Reading MD: Cha Marie Measurements Intervals [place] Rate: 49 P: [place]: 0 QRS: 89 QRSD: 110 T: 85 QT: 444 QTc: 403 Interpretive Statements ATRIAL FIBRILLATION WITH SLOW VENTRICULAR RESPONSE MINIMAL ST DEPRESSION ABNORMAL RHYTHM ECG SEE SCANNED DOWNTIME REPORT
--- NOTE | 2020-04-19 14:54 | ECGEPIP ---
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
--- NOTE | 2020-04-24 10:54 | REP ---
LEFT FOOT SERIES: 2-VIEWS HISTORY: Hallux fracture, open wound. COMPARISON: Left foot radiographs from 04/20/2015. FINDINGS: AP and lateral views show some cortical discontinuity across the distal phalanx of the great toe consistent with a nondisplaced fracture. There is diffuse osteopenia. Extensive vascular calcification is noted. No soft tissue emphysema or opaque foreign body is seen. No acute erosive bony change is seen. There is some dystrophic calcification in the plantar fascia again noted. Plantar and calcaneal heel spurs are noted. IMPRESSION: Discontinuity in the proximal phalanx of the great toe consistent with a history of fracture. No soft tissue emphysema or acute bony erosive change. Extensive vascular calcification is noted. Diffuse osteopenia. MTDD
--- NOTE | 2020-04-24 10:55 | REP ---
TWO FLUOROSCOPIC SPOT VIEWS OBTAINED DURING FIXATION OF HALLUX VALGUS DEFORMITY LEFT FOOT. FINDINGS: Two fluoroscopic spot views were obtained in [facility] using a portable C-arm device. Fluoroscopy time for the procedure was 11 minutes 7 seconds. K-wire fixation is noted. MTDD
[2020-04-30 08:08] LABS: BASO # 0.1 10^3/uL (0.0-0.2); BASO % 0.5 % (0.0-1.0); EOS # 0.2 10^3/uL (0.0-0.5); EOS % 1.2 % (0.0-3.0); LYMPH # 1.3 10^3/uL (1.5-5.0); LYMPH % 10.3 % (24.0-44.0); MEAN CORPUSCULAR HEMOGLOBIN 28.8 pg (27.0-33.0); MEAN CORPUSCULAR HGB CONC 33.3 g/dl (32.0-36.5); MEAN CORPUSCULAR VOLUME 86.4 fl (80.0-96.0); MONO # 0.8 10^3/uL (0.0-0.8); MONO % 6.5 % (0.0-5.0); NEUTROPHILS # 9.9 10^3/uL (1.5-8.5); NEUTROPHILS % 80.8 % (36.0-66.0); PLATELET COUNT, AUTOMATED 255 10^3/uL (150-450); RED BLOOD COUNT 4.86 10^6/uL (4.30-6.10); WHITE BLOOD COUNT 12.3 10^3/uL (4.0-10.0)
[2020-04-30 08:09] LABS: ERYTHROCYTE SEDIMENTATION RATE 73 mm/hr (0-20)
[2020-04-30 09:27] LABS: APPEARANCE, URINE CLEAR (CLEAR); BACTERIA, URINE AUTO NEGATIVE (NEGATIVE); BILIRUBIN, URINE AUTO NEGATIVE (NEGATIVE); BLOOD, URINE BLOOD NEGATIVE (NEGATIVE); COLOR, URINE YELLOW (YELLOW); GLUCOSE, URINE (UA) AUTO 1+ mg/dL (NEGATIVE); KETONE, URINE AUTO NEGATIVE (NEGATIVE); LEUKOCYTE ESTERASE, URINE AUTO 1+ (NEGATIVE); NITRITE, URINE AUTO NEGATIVE (NEGATIVE); PROTEIN, URINE AUTO 1+ mg/dL (NEGATIVE); RBC, URINE AUTO 1 /HPF (0-3); SPECIFIC GRAVITY URINE AUTO 1.014 (1.002-1.035); SQUAMOUS EPITHELIAL CELL UR AU 1 /HPF (0-6); UROBILINOGEN, URINE AUTO 0.2 mg/dL (0.0-2.0); WBC, URINE AUTO 11 /HPF (0-3)
[2020-04-30 09:34] LABS: INR 1.16; PARTIAL THROMBOPLASTIN TIME 38.9 SECONDS (24.2-38.5); PROTHROMBIN TIME 15.1 SECONDS (12.5-14.3)
--- NOTE | 2020-05-09 12:48 | RO ---
DATE OF OPERATION: 03/22/2020 SURGEON: Migel Olea DPM PHOTOFLASH POWDER MIXER: None. PREOPERATIVE DIAGNOSIS: Left hallux ulceration and fracture. POSTOPERATIVE DIAGNOSIS: Left hallux ulceration and fracture. PROCEDURE: Left hallux fracture repair with wound debridement excisional including necrotic bone. ANESTHESIA: Monitored anesthesia care. PREOPERATIVE INJECTION: 10 mL of 1:1 mixture of 1% Lidocaine plain and 0.5% Marcaine plain. ESTIMATED BLOOD LOSS: Minimal. MATERIALS: 0.062 K-wires. COMPLICATIONS: None. CONDITION: Stable. INDICATIONS FOR PROCEDURE: Jani Fonseca is an 89-year-old male who was admitted to the hospital due to worsening condition of his left hallux. He had a fracture approximately a month ago after sustaining an injury at home. He was noted to have worsening infection to his toe and was sent to the ER. On examination, he had exposed unstable bone stemming from the laceration just proximal to his nail bed. The decision was made to bring him to the operating room to obtain operative cultures, debride the wound, and ideally stabilize the fracture. Patient side and site were identified and marked in the preoperative area. Consent was reviewed and obtained. All risks, complications, and alternatives to the procedure were explained to the patient in detail and all questions were answered. DESCRIPTION OF PROCEDURE: The patient was brought to the operating room and placed on the operating room table in the supine position. Monitored anesthesia care was done by the anesthesia team. A preop injection of 10 mL of 1:1 mixture of 1% Lidocaine and 0.5% Marcaine plain was injected into the foot. The left foot was prepped and draped in normal sterile fashion. A tourniquet was applied to the left ankle, but was not inflated during the procedure. Wound was inspected. There was some necrotic tissue and bone at the laceration just proximal to the nail fold. With flexion of the toe at this site, the fracture line widened and further bone was exposed. Culture swabs were taken aerobic and anaerobic. Some of the necrotic bone was debrided using the bone rongeur. Good bleeding healthy bone was now able to be accessed. The toenail was removed using a freer and the fracture line was stabilized using three 0.062 K-wires under fluoro guidance. The toe was irrigated with saline and sterile dressings were applied. Patient was brought to the post anesthesia care unit (PACU) with vital signs stable and neurovascular status intact. He had been readmitted to the floor. There is plan for angiogram tomorrow by vascular surgery to assess and possibly improve blood flow if possible. He is at high risk for amputation of his toe given that he has poorly viable bone in an unstable fracture. We will follow. PHONG
== END 2020-03-25 14:15 | disposition home health service (06) | DRG 254 ==
LOC: M ED 01:18 → M ED INP 01:40 → M MS5PR 03:40
PROVIDERS: ADMIT Student in an Organized Health Care Education/Training Program; ATTEND Internal Medicine
PROC: 047M3ZZ Dilation of Right Popliteal Artery, Percutaneous Approach (ICD-10-PCS; 2020-03-23)
PROC: B41FYZZ Fluoroscopy of Right Lower Extremity Arteries using Other Contrast (ICD-10-PCS; 2020-03-23)
PROC: 047K3ZZ Dilation of Right Femoral Artery, Percutaneous Approach (ICD-10-PCS; principal; 2020-03-23 07:00)
DX: I70.79 Other atherosclerosis of other type of bypass graft(s) of the extremities (principal); Z79.899 Other long term (current) drug therapy; Z79.82 Long term (current) use of aspirin; Z79.4 Long term (current) use of insulin; E11.9 Type 2 diabetes mellitus without complications; Z95.2 Presence of prosthetic heart valve; I10 Essential (primary) hypertension; K21.9 Gastro-esophageal reflux disease without esophagitis; I48.91 Unspecified atrial fibrillation; Z79.01 Long term (current) use of anticoagulants; Z96.641 Presence of right artificial hip joint; Z96.642 Presence of left artificial hip joint; E03.9 Hypothyroidism, unspecified; M19.90 Unspecified osteoarthritis, unspecified site; L03.032 Cellulitis of left toe

== ENCOUNTER 2020-04-10 09:41 | Emergency (ER) | payer MEDICARE ==
[~2020-04-10] VITALS: Ht 170.2 cm; Wt 90.0 kg
[~2020-04-10 09:41] MED LIST changes: +AMOX875T2 PO; +ASPI-161 PO; +DOXY-350 PO; +ESOM1CAP5 PO; +KEFL500C17 PO; +MAGN400T3 PO; +OMEG100011 PO; +ONGL1TAB9 PO; +ROSU20TA5 PO; +SPIR-10 PO; +TOPR25TA PO; -ZOSYN 3.375GM VIAL (J2543) As Ordered ONE
[2020-04-10] MEDS ORDERED: JANU25TA PO (10:01)
[2020-04-10] MEDS ORDERED: KETO2CR TOP (10:01)
[2020-04-10 10:29] LABS: BASO % 0.2 % (0.0-1.0); HEMATOCRIT 36.1 % (42.0-52.0); HEMOGLOBIN 12.3 g/dl (13.5-17.5); LYMPH # 0.9 10^3/uL (1.5-5.0); LYMPH % 4.3 % (24.0-44.0); MEAN CORPUSCULAR HEMOGLOBIN 29.4 pg (27.0-33.0); MEAN CORPUSCULAR HGB CONC 34.1 g/dl (32.0-36.5); MEAN CORPUSCULAR VOLUME 86.4 fl (80.0-96.0); MONO % 4.8 % (0.0-5.0); NEUTROPHILS # 19.3 10^3/uL (1.5-8.5); NEUTROPHILS % 89.4 % (36.0-66.0); PLATELET COUNT, AUTOMATED 285 10^3/uL (150-450); RED BLOOD COUNT 4.18 10^6/uL (4.30-6.10); WHITE BLOOD COUNT 21.6 10^3/uL (4.0-10.0)
--- NOTE | 2020-04-10 10:39 | REPVR ---
PROCEDURE INFORMATION: Exam: XR Chest, 1 View Exam date and time: (10:16am) Age: 89 years old Clinical indication: Sepsis / shock TECHNIQUE: Imaging protocol: Portable CXR Views: 1 view COMPARISON: CT CHEST of 09/14/17 Portable CXR of 09/14/17 FINDINGS: Comparison is made with a portable CXR done on 09/14/17. Stable heart size. Previous sternotomy. Prominent lung markings are again seen. No focal infiltrates. No pleural effusions. Previous right shoulder surgery Degenerative changes again seen at each shoulder joint. IMPRESSION: No significant interval change, compared to portable CXR done on 09/14/2017. Prominent lung markings again noted. No focal infiltrate. No pleural effusions. Electronically signed by: Charo Randle On 04/10/2020 10:39:28 AM
[2020-04-10 10:41] LABS: INR 1.59; PROTHROMBIN TIME 19.3 SECONDS (11.8-14.0)
[2020-04-10 10:42] LABS: PARTIAL THROMBOPLASTIN TIME 39.7 SECONDS (25.0-38.4)
[2020-04-10 10:45] LABS: ALBUMIN 2.3 GM/DL (3.2-5.2); ALT/SGPT 24 U/L (12-78); AMYLASE 32 U/L (25-115); BILIRUBIN,DIRECT 0.4 MG/DL (0.0-0.2); BILIRUBIN,TOTAL 0.9 MG/DL (0.2-1.0); BLOOD UREA NITROGEN 46 MG/DL (7-18); CALCIUM LEVEL 8.5 MG/DL (8.8-10.2); CARBON DIOXIDE LEVEL 26 MEQ/L (21-32); CHLORIDE LEVEL 97 MEQ/L (98-107); CK-MB VALUE MASS < 1.0 NG/ML (<3.6); CPK CREATINE PHOSPHOKINASE 34 U/L (39-308); CREATININE FOR GFR 2.23 MG/DL (0.70-1.30); GLOMERULAR FILTRATION RATE 29.7 (>35); GLUCOSE, FASTING 192 MG/DL (70-100); MB/CK RELATIVE INDEX 2.94 (< OR =4); POTASSIUM SERUM 4.8 MEQ/L (3.5-5.1); SODIUM LEVEL 131 MEQ/L (136-145); TOTAL PROTEIN 6.3 GM/DL (6.4-8.2); TROPONIN I < 0.02 NG/ML (< 0.10)
--- NOTE | 2020-04-10 11:03 | REPVR ---
PROCEDURE INFORMATION: Exam: XR Left Foot Exam date and time: 04/10/20 (10:28am) Age: 89 years old Clinical indication: Necrotic great toe TECHNIQUE: Imaging protocol: XR Left foot Views: 2 views COMPARISON: Left foot plain films of 03/21/20 FINDINGS: Comparison is made with two views of the left foot done on 03/21/20. A transverse fracture through the midportion of the left 1st distal phalanx is more easily visualized at this time. The fracture line is lucent, probably with some bone resorption in the interim. Soft tissue air now present adjacent to the left 1st distal phalanx, and also on the dorsum of the left foot, at the 1st interphalangeal joint level. Small vessel atherosclerotic calcifications are again seen (compatible with diabetes). Diffuse bony demineralization is again observed. IMPRESSION: Non-healing transverse fracture, left 1st distal phalanx. Some bone resorption is evident at and adjacent to the fracture site. Soft tissue air now noted at the 1st distal phalanx, and along the lateral aspect of the left 1st interphalangeal joint. Acute osteomyelitis is of concern here. Clinical correlation and close follow-up are suggested. Electronically signed by: Charo Randle On 04/10/2020 11:02:50 AM
[2020-04-10] MEDS ORDERED: ZOSYN 3.375GM VIAL (J2543) As Ordered ONE (12:24)
[2020-04-10] MEDS ORDERED: PIPERACILLIN/TAZOBACTAM SOD 3.375 GM in D5W MINI-BAG PLUS 50 ML IV ONE (12:30)
[2020-04-10] MEDS ORDERED: TRIA0.5O TOP (12:35)
[2020-04-10] MEDS ORDERED: DOXY100C37 PO (12:35)
[2020-04-10] MEDS ORDERED: ACETAMINOPHEN TAB 650MG DOSE (2X325MG) PO ONE (12:45)
[2020-04-10 15:17] VITALS: BP 117/69
--- NOTE | 2020-04-13 15:25 | ECGEPIP ---
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
== END 2020-04-10 15:47 | disposition short-term general hospital (02) ==
LOC: M ED 09:41
DX: L97.524 Non-pressure chronic ulcer of other part of left foot with necrosis of bone (principal); S92.422G Displaced fracture of distal phalanx of left great toe, subsequent encounter for fracture with delayed healing; X58.XXXS Exposure to other specified factors, sequela; I87.2 Venous insufficiency (chronic) (peripheral); R94.31 Abnormal electrocardiogram [ECG] [EKG]; I48.91 Unspecified atrial fibrillation; I25.10 Atherosclerotic heart disease of native coronary artery without angina pectoris; N18.9 Chronic kidney disease, unspecified; Z79.01 Long term (current) use of anticoagulants; Z79.899 Other long term (current) drug therapy; Z79.82 Long term (current) use of aspirin
CPT/HCPCS: 71045; 73620; 80048; 80076; 82150; 82550; 82553; 83605; 84484; 85025; 85610; 85730; 86140; 87040; 93005; 93041; 94760; 96365; 99285; J2543

== ENCOUNTER → 2020-05-03 | Outpatient (REF) ==
[~2020-05-03] MED LIST changes: +DOXY100C37 PO; +JANU25TA PO; +KETO2CR TOP; +TRIA0.5O TOP
[2020-05-03 09:24] LABS: PERCENT SATURATION 20.1 % (19.7-50.0); THYROID STIMULATING HORMONE 1.85 uIU/ML (0.358-3.740)
[2020-05-03 10:42] LABS: CORTISOL AM 14.4 UG/DL (4.3-22.4)
== END ==
LOC: SKLAB4 07:48
PROVIDERS: ATTEND Internal Medicine
DX: E87.1 Hypo-osmolality and hyponatremia (principal); D64.9 Anemia, unspecified

== ENCOUNTER → 2020-05-04 | Outpatient (REF) ==
[2020-05-04 08:52] LABS: HEMATOCRIT 31.2 % (42.0-52.0); MEAN CORPUSCULAR HEMOGLOBIN 28.5 pg (27.0-33.0); MEAN CORPUSCULAR HGB CONC 32.1 g/dl (32.0-36.5); MEAN CORPUSCULAR VOLUME 88.9 fl (80.0-96.0); PLATELET COUNT, AUTOMATED 365 10^3/uL (150-450); RED BLOOD COUNT 3.51 10^6/uL (4.30-6.10); WHITE BLOOD COUNT 9.8 10^3/uL (4.0-10.0)
[2020-05-04 09:01] LABS: CALCIUM LEVEL 8.8 MG/DL (8.8-10.2); CREATININE FOR GFR 1.85 MG/DL (0.70-1.30); GLOMERULAR FILTRATION RATE 36.8 (>35); POTASSIUM SERUM 4.1 MEQ/L (3.5-5.1)
== END ==
LOC: SKLAB4 07:06
PROVIDERS: ATTEND Internal Medicine
DX: E87.1 Hypo-osmolality and hyponatremia (principal)

== ENCOUNTER → 2020-05-10 | Outpatient (REF) ==
[2020-05-10 08:48] LABS: HEMATOCRIT 33.1 % (42.0-52.0); HEMOGLOBIN 10.8 g/dl (13.5-17.5); MEAN CORPUSCULAR HEMOGLOBIN 28.8 pg (27.0-33.0); MEAN CORPUSCULAR HGB CONC 32.6 g/dl (32.0-36.5); MEAN CORPUSCULAR VOLUME 88.3 fl (80.0-96.0); PLATELET COUNT, AUTOMATED 348 10^3/uL (150-450); RED BLOOD COUNT 3.75 10^6/uL (4.30-6.10); WHITE BLOOD COUNT 8.3 10^3/uL (4.0-10.0)
[2020-05-10 09:04] LABS: CALCIUM LEVEL 8.3 MG/DL (8.8-10.2); CREATININE FOR GFR 1.97 MG/DL (0.70-1.30); GLOMERULAR FILTRATION RATE 34.3 (>35); POTASSIUM SERUM 4.4 MEQ/L (3.5-5.1)
== END ==
LOC: SKLAB4 10:51
PROVIDERS: ATTEND Internal Medicine
DX: E87.1 Hypo-osmolality and hyponatremia (principal)

== ENCOUNTER → 2020-05-14 | Outpatient (REF) ==
--- NOTE | 2020-05-14 15:55 | ECGEPIP ---
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
== END ==
LOC: SKLAB4 13:30
PROVIDERS: ATTEND Internal Medicine
DX: I48.91 Unspecified atrial fibrillation (principal)

== ENCOUNTER → 2020-05-17 | Outpatient (REF) ==
[2020-05-17 11:21] LABS: CALCIUM LEVEL 8.3 MG/DL (8.8-10.2); CREATININE FOR GFR 1.54 MG/DL (0.70-1.30); GLOMERULAR FILTRATION RATE 45.5 (>35); POTASSIUM SERUM 4.3 MEQ/L (3.5-5.1)
== END ==
LOC: SKLAB4 11:01
PROVIDERS: ATTEND Internal Medicine
DX: E87.1 Hypo-osmolality and hyponatremia (principal)

== ENCOUNTER → 2020-05-22 | Outpatient (REF) ==
[2020-05-22 14:29] LABS: HEMOGLOBIN A1c 7.1 %
== END ==
LOC: SKLAB4 12:56
PROVIDERS: ATTEND Internal Medicine
DX: E11.9 Type 2 diabetes mellitus without complications (principal)

== ENCOUNTER → 2020-05-24 | Outpatient (REF) ==
[2020-05-24 09:44] LABS: CALCIUM LEVEL 8.6 MG/DL (8.8-10.2); CREATININE FOR GFR 1.46 MG/DL (0.70-1.30); GLOMERULAR FILTRATION RATE 48.4 (>35); POTASSIUM SERUM 3.9 MEQ/L (3.5-5.1)
== END ==
LOC: SKLAB4 13:43
PROVIDERS: ATTEND Internal Medicine
DX: E87.1 Hypo-osmolality and hyponatremia (principal); E11.9 Type 2 diabetes mellitus without complications

== ENCOUNTER → 2020-05-25 | Outpatient (REF) ==
[2020-05-31 08:17] LABS: CALCIUM LEVEL 8.4 MG/DL (8.8-10.2); CREATININE FOR GFR 1.56 MG/DL (0.70-1.30); GLOMERULAR FILTRATION RATE 44.8 (>35); POTASSIUM SERUM 4.5 MEQ/L (3.5-5.1)
== END ==
LOC: SKLAB4 07:51
PROVIDERS: ATTEND Internal Medicine
DX: E87.0 Hyperosmolality and hypernatremia (principal)

== ENCOUNTER → 2020-05-31 | Outpatient (REF) | LOC: SKLAB4 07:20 | PROVIDERS: ATTEND Internal Medicine | DX: E87.1 Hypo-osmolality and hyponatremia (principal) ==

== ENCOUNTER → 2020-06-14 | Outpatient (REF) | payer MEDICARE | LOC: SKLAB4 12:05 | PROVIDERS: ATTEND Internal Medicine | DX: Z20.828 Contact with and (suspected) exposure to other viral communicable diseases (principal) ==

== ENCOUNTER 2020-07-02 20:42 | Inpatient (IN) | payer MEDICARE ==
[~2020-07-02] VITALS: Ht 170.2 cm; Wt 91.6 kg
[2020-07-02 22:47] LABS: BASO # 0.1 10^3/uL (0.0-0.2); BASO % 0.3 % (0.0-1.0); EOS % 0.1 % (0.0-3.0); HEMOGLOBIN 9.1 g/dl (13.5-17.5); LYMPH # 1.4 10^3/uL (1.5-5.0); LYMPH % 6.6 % (24.0-44.0); MEAN CORPUSCULAR HEMOGLOBIN 27.2 pg (27.0-33.0); MEAN CORPUSCULAR HGB CONC 33.7 g/dl (32.0-36.5); MEAN CORPUSCULAR VOLUME 80.6 fl (80.0-96.0); MONO # 1.4 10^3/uL (0.0-0.8); MONO % 6.2 % (0.0-5.0); NEUTROPHILS # 18.7 10^3/uL (1.5-8.5); NEUTROPHILS % 85.8 % (36.0-66.0); PLATELET COUNT, AUTOMATED 435 10^3/uL (150-450); RED BLOOD COUNT 3.35 10^6/uL (4.30-6.10); WHITE BLOOD COUNT 21.8 10^3/uL (4.0-10.0)
[2020-07-02 22:51] LABS: INR 1.83; PROTHROMBIN TIME 21.6 SECONDS (12.5-14.3)
[2020-07-02 22:52] LABS: PARTIAL THROMBOPLASTIN TIME 48.7 SECONDS (24.2-38.5)
[2020-07-02 23:01] LABS: ALBUMIN 1.9 GM/DL (3.2-5.2); ALT/SGPT 17 U/L (12-78); BILIRUBIN,DIRECT 0.4 MG/DL (0.0-0.2); BILIRUBIN,TOTAL 0.6 MG/DL (0.2-1.0); BLOOD UREA NITROGEN 26 MG/DL (7-18); CALCIUM LEVEL 7.8 MG/DL (8.8-10.2); CARBON DIOXIDE LEVEL 24 MEQ/L (21-32); CHLORIDE LEVEL 97 MEQ/L (98-107); CK-MB VALUE MASS < 1.0 NG/ML (<3.6); CPK CREATINE PHOSPHOKINASE 19 U/L (39-308); CREATININE FOR GFR 1.67 MG/DL (0.70-1.30); GLOMERULAR FILTRATION RATE 41.4 (>35); GLUCOSE, FASTING 161 MG/DL (70-100); MB/CK RELATIVE INDEX 5.26 (< OR =4); NT-PRO BNP 7129 PG/ML (<450); POTASSIUM SERUM 4.2 MEQ/L (3.5-5.1); SODIUM LEVEL 129 MEQ/L (136-145); TROPONIN I 0.06 NG/ML (< 0.10)
[2020-07-02 23:29] LABS: ABG BASE EXCESS 0.4 (-2.0-2.0); ABG HCO3 22.9 MEQ/L (22.0-26.0); ABG O2 SATURATION 98.7 % (95.0-99.0); ABG PARTIAL PRESSURE CO2 29.3 mmHg (35.0-45.0); ABG PARTIAL PRESSURE O2 128.7 mmHg (75.0-100.0); ABG STANDARD HCO3 24.9 MEQ/L (22.0-26.0); ABG TOTAL CO2 23.8 MEQ/L (23.0-31.0); ABG pH (ARTERIAL) 7.511 UNITS (7.350-7.450)
[2020-07-03 00:09] LABS: APPEARANCE, URINE HAZY (CLEAR); BACTERIA, URINE AUTO NEGATIVE (NEGATIVE); BILIRUBIN, URINE AUTO NEGATIVE (NEGATIVE); BLOOD, URINE BLOOD NEGATIVE (NEGATIVE); COLOR, URINE YELLOW (YELLOW); GLUCOSE, URINE (UA) AUTO NEGATIVE (NEGATIVE); KETONE, URINE AUTO NEGATIVE (NEGATIVE); LEUKOCYTE ESTERASE, URINE AUTO NEGATIVE (NEGATIVE); NITRITE, URINE AUTO NEGATIVE (NEGATIVE); PROTEIN, URINE AUTO 2+ mg/dL (NEGATIVE); RBC, URINE AUTO 1 /HPF (0-3); SPECIFIC GRAVITY URINE AUTO 1.012 (1.002-1.035); SQUAMOUS EPITHELIAL CELL UR AU 3 /HPF (0-6); UROBILINOGEN, URINE AUTO 0.2 mg/dL (0.0-2.0); WBC, URINE AUTO 1 /HPF (0-3)
--- NOTE | 2020-07-03 00:11 | REPVR ---
PROCEDURE INFORMATION: Exam: XR Chest, 1 View Exam date and time: 07/02/2020 11:48 PM Age: 89 years old Clinical indication: Sepsis/shock TECHNIQUE: Imaging protocol: XR of the chest Views: 1 view. COMPARISON: CR PORTABLE CHEST X-RAY 04/10/2020 10:15 AM FINDINGS: Lungs: There are bibasilar airspace opacities. Pleural space: Unremarkable. No pleural effusion or pneumothorax is identified. Heart/Mediastinum: The cardiac silhouette is magnified by the AP portable technique and low lung volumes. The mediastinal contours are unremarkable. 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 Mediastinal clips are in place. Bones/joints: Intact median sternotomy suture wires are noted fixating a healed median sternotomy. There is a suture anchor in the right humeral head. There has been an excision of the distal end of the right clavicle. There are degenerative changes of both glenohumeral joints. IMPRESSION: Bibasilar airspace opacities, which may represent atelectasis or consolidation (e.g.: aspiration pneumonia or pneumonia). Electronically signed by: Romario Estrada On 07/03/2020 00:11:27 AM
[2020-07-03 00:12] LABS: INFLUENZA A AMPLIFICATION NEGATIVE (NEGATIVE); INFLUENZA B AMPLIFICATION NEGATIVE (NEGATIVE)
--- NOTE | 2020-07-03 00:16 | REPVR ---
PROCEDURE INFORMATION: Exam: XR Left Foot Complete Exam date and time: 07/02/2020 11:48 PM Age: 89 years old Clinical indication: Sepsis/shock TECHNIQUE: Imaging protocol: XR Left foot. Views: 3 or more views. COMPARISON: CR Foot, Ap, Lat 04/10/2020 10:25 AM FINDINGS: Bones/joints: Postoperative changes are noted from a left transmetatarsal amputation that has been performed since the prior left foot x-rays on 04/10/2020. There is irregularity of distal ends of the remaining portions of the left 1st, 2nd, 3rd, and 5th metatarsals. 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 There is a plantar calcaneal spur at the origin of the plantar fascia. 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 Soft tissues: There is a soft tissue wound at the site of the amputation defect near the remaining proximal portions of the left 1st and 2nd metatarsals. Vasculature: Extensive atherosclerotic calcifications are present. IMPRESSION: 1. Status post left transmetatarsal amputation since the prior left foot x-rays on 04/10/2020, and there is irregularity of distal ends of the remaining portions of the left 1st, 2nd, 3rd, and 5th metatarsals, which may indicate osteomyelitis. 2. Soft tissue wound at the site of the amputation defect near the remaining proximal portions of the left 1st and 2nd metatarsals. Electronically signed by: Romario Estrada On 07/03/2020 00:17:20 AM
[2020-07-03] MEDS ORDERED: PIPERACILLIN/TAZOBACTAM SOD 2.25 GM in D5W MINI-BAG PLUS 50 ML IV ONE (00:30)
[2020-07-03] MEDS ORDERED: VANCOMYCIN HCL 1,000 MG, VIAL MATE ADAPTER 1 EACH in D5W 250 ML IV ONE ×2 (00:30→04:00)
--- NOTE | 2020-07-03 01:41 | REPVR ---
PROCEDURE INFORMATION: Exam: CT Chest Without Contrast; Diagnostic Exam date and time: 07/03/2020 12:47 AM Age: 89 years old Clinical indication: Fever; Additional info: R/O pneumonia TECHNIQUE: Imaging protocol: Diagnostic computed tomography of the chest without contrast. 3D rendering (Not supervised by radiologist): MIP and/or 3D reconstructed images were created by the technologist. Radiation optimization: All CT scans at this facility use at least one of these dose optimization techniques: automated exposure control; mA and/or kV adjustment per patient size (includes targeted exams where dose is matched to clinical indication); or iterative reconstruction. COMPARISON: 1. CT Chest without contrast 09/14/2017 3:53 PM 2. CR - PORTABLE CHEST X-RAY 07/02/2020 11:41:40 PM FINDINGS: Limitations: Respiratory motion artifact degrades the image quality. Thyroid: Unremarkable. Tracheobronchial tree: Intact and patent. Lungs: There is compressive atelectasis in both lower lobes. No ground-glass opacification, lung consolidation, or cavitary lesion is noted. Pleural space: There is a small a moderate right pleural effusion and a small left pleural effusion that measure water density and are not loculated. No pneumothorax. No calcified pleural plaques. Heart: The left atrium is dilated. There are coronary artery, aortic valve, and mitral annular calcifications. No pericardial effusion is noted. There are postoperative changes from a CABG. Mediastinal space: No mediastinal mass, fluid collection, or pneumomediastinum. Aorta: No thoracic aortic aneurysm or intramural hematoma is noted. There are extensive atherosclerotic calcifications. Lymph nodes: There are subcentimeter mediastinal lymph nodes. However, no abnormally enlarged lymph nodes measuring greater than 1 cm in short axis are noted. Diaphragm: Intact. Liver: The imaged portion of the liver is unremarkable. The inferior aspect of the right hepatic lobe was not fully imaged. Gallbladder and bile ducts: There has been a cholecystectomy. There is no fluid collection in the gallbladder fossa. No dilation of the bile ducts is noted. Pancreas: There is fatty infiltration of the pancreas. The head of the pancreas was not fully imaged. Spleen: Unremarkable. No splenomegaly is noted. Adrenals: Normal. No adrenal mass is noted. Kidneys and ureters: There is a partially imaged 5.5 cm benign-appearing simple exophytic cyst arising from the interpolar region of the left kidney, which is stable compared to the prior CT chest on 09/14/2017. The kidneys were not fully imaged. Bones/joints: There is no fracture or dislocation. No suspicious osteolytic or osteoblastic lesion. Intact median sternotomy suture wires are noted fixating a healed median sternotomy. 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 There is a suture anchor in the right humeral head. Degenerative changes are present in the thoracic spine. Soft tissues: Unremarkable. No soft tissue fluid collection. IMPRESSION: 1. Small to moderate right pleural effusion and a small left pleural effusion with associated compressive atelectasis in both lower lobes. 2. No CT findings to suggest pneumonia. Electronically signed by: Romario Estrada On 07/03/2020 01:41:30 AM
[2020-07-03] MEDS ORDERED: TRAM50TA2 PO (02:43)
[2020-07-03] MEDS ORDERED: AMLO1TAB25 PO (02:43)
[2020-07-03] MEDS ORDERED: VITMTA PO (02:43)
[2020-07-03] MEDS ORDERED: CLOT1CRE71 TOP (02:43)
[2020-07-03] MEDS ORDERED: PIPERACILLIN/TAZOBACTAM SOD 3.375 GM in D5W MINI-BAG PLUS 50 ML IV SCH (02:45)
[2020-07-03] MEDS ORDERED: PILL CUTTER 1 EACH XX PRN (03:15)
[2020-07-03] MEDS ORDERED: GLUCOSE 4GM CHEW TABLET PO PRN (03:15)
[2020-07-03] MEDS ORDERED: DEXTROSE 50% 50 ML SYRINGE IV PRN (03:15)
[2020-07-03] MEDS ORDERED: GLUCAGON INJ 1MG VIAL SC PRN (03:15)
--- NOTE | 2020-07-03 03:15 | HPEPDOC ---
[facility] Medical History & Physical Date of Admission Jul 03, 2020 Date of Service: Jul 03, 2020 Primary Care Physician: SONDRA WONG MD [facility] Attending Physician: ANALI LOPEZ MD History and Physical CHIEF COMPLAINT: fevers, decreased appetite, heavy breathing HISTORY OF PRESENT ILLNESS: Jani Fonseca is an 89 YO M with history of CAD, PVD, recent amputation of all toes on left foot 2/2 gangrene and s/p wound vac who presents to the ED brought in by his wfcpvsax-wn-grf Graciela because of fevers, cough, malaise and heavy breathing for 3 days. The patient was hospitalized at [facility] in early March 2020, where he was diagnosed with gangrene of the left foot and underwent amputation of all toes on that foot. His toes were found to be growing Enterococcus faecalis at that time. Subsequently, he was admitted to [facility] May 02 - June 18 for rehab and care of a wound vac on his left foot. The wound vac was removed at discharge and he saw Dr. Mcgowan outpatient one week ago, who instructed the patient's family on proper dressing changes to be done three times weekly. Today, when the patient's [id number] was changing the dressing she noticed a very foul odor worse than normal. In addition, she notes that for three days now, the patient has had fevers (not exceeding 100 degrees), decreased appetite, and labored breathing with cough productive of clear sputum. The patient does have baseline dementia but denies any chest pain or trouble breathing at this time. He also denies any pain in his left foot. PAST MEDICAL HISTORY: 1. Recent [facility] rehab s/p [facility] hospitalization for gangrene of L foot, amputation of all toes. Toes grew Enterococcus faecalis 2. PVD 3. CAD s/p CABG and stents placement 4. Diabetes mellitus type 2 5. Chronic kidney disease stage III 6. History of cellulitis of the left foot 7. Atherosclerotic heart disease 8. Hypertension with hypertensive heart disease 9. Diastolic congestive heart failure 10. History of chronic anemia 11. BPH 12. Dementia, Alzheimer's type 13. GERD 14. Atrial fibrillation on Eliquis PAST SURGICAL HISTORY: 1. L popliteal bypass graft 04/27/20. Surgical cultures grew Stenotrophomonas maltophila, treated with Zosyn/Levothyroxine 2. Cholecystectomy 3. Cataract surgery 4. Bilateral hip replacement SOCIAL HISTORY: Denies tobacco, alcohol or other drug use FAMILY HISTORY: Mother with diabetes, father with RI and CAD ALLERGIES: Please see below. REVIEW OF SYSTEMS: (per [id number]) Constitutional: reports low grade fevers, no night sweats, no chills, no weight changes HEENT: no changes in vision, no loss of hearing Cardiovascular: No Chest Pain, No SOB, No PND, No Dyspnea on Exertion, No Orthopnea, No Claudication, No Edema, No Palpitations Respiratory: Reports cough productive of clear sputum, labored breathing, no wheezing Gastrointestinal: No Nausea, No Vomiting, No Diarrhea, No Constipation, No Pain, No Heartburn, No Anorexia, No Dysphagia Musculoskeletal: No Arthralgias, No Myalgias, No Joint Swelling, No Joint Stiffness, No Back Pain, No Neck Pain, No Injury History Neuro: No Weakness, No Numbness, No Paresthesias, No Loss of Consciousness, No Syncope, No Dizziness, No Headache, No Coordination Changes, No Recent Falls Psych: Some increased confusion reported Heme/Lymph: No Bruising, No Bleeding, No Lymphadenopathy Endocrine: No Polyuria, No Polydipsia, No Temperature Intolerance HOME MEDICATIONS: Please see below. PHYSICAL EXAMINATION: VITAL SIGNS: see below GENERAL: laying in bed, very hard of hearing, in no apparent distress HEENT: PERRL, EOMI, Oral mucous membranes are moist without lesions. NECK: The patient has no noted JVD. No adenopathy is appreciated. No thyromegaly CHEST/LUNGS: Lungs are clear bilaterally without rhonchi, rales, or wheezes. There is no subcutaneous air appreciated. There is no tenderness to the chest wall. HEART: Irregularly irregular. No murmurs, rubs, or gallops are appreciated. Dist al pulses are 2+. No carotid bruits appreciated. ABDOMEN: Soft, nontender, and nondistended. Bowel sounds are positive. No organomegaly is appreciated. No masses are appreciated. There are no peritoneal signs. There is no [place] sign. EXTREMITIES: The patient's left foot was bandaged so I did not examine it but his [id number] did show me photos she had taken of the wound earlier today: There is a large ~6-7cm diameter wound on the lateral surface of the left foot with black eschar and drainage of greenish/yellow pus. No active bleeding. There is a foul odor. The wound is most likely 2-3cm deep. There is another wound on the heel, similar in appearance but smaller, ~4-5cm in diameter SKIN: The patients skin is warm and dry, without rashes or lesions. PSYCHIATRIC: unable to examine NEUROLOGIC: unable to examine LABORATORY DATA: See below. IMAGING: FOOT XR: FINDINGS: Bones/joints: Postoperative changes are noted from a left transmetatarsal amputation that has been performed since the prior left foot x-rays on 04/10/2020. There is irregularity of distal ends of the remaining portions of the left 1st, 2nd, 3rd, and 5th metatarsals. 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 There is a plantar calcaneal spur at the origin of the plantar fascia. 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 Soft tissues: There is a soft tissue wound at the site of the amputation defect near the remaining proximal portions of the left 1st and 2nd metatarsals. Vasculature: Extensive atherosclerotic calcifications are present. IMPRESSION: 1. Status post left transmetatarsal amputation since the prior left foot x-rays on 04/10/2020, and there is irregularity of distal ends of the remaining portions of the left 1st, 2nd, 3rd, and 5th metatarsals, which may indicate osteomyelitis. 2. Soft tissue wound at the site of the amputation defect near the remaining proximal portions of the left 1st and 2nd metatarsals. CXR: FINDINGS: Lungs: There are bibasilar airspace opacities. Pleural space: Unremarkable. No pleural effusion or pneumothorax is identified. Heart/Mediastinum: The cardiac silhouette is magnified by the AP portable technique and low lung volumes. The mediastinal contours are unremarkable. 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 Mediastinal clips are in place. Bones/joints: Intact median sternotomy suture wires are noted fixating a healed median sternotomy. There is a suture anchor in the right humeral head. There has been an excision of the distal end of the right clavicle. There are degenerative changes of both glenohumeral joints. IMPRESSION: Bibasilar airspace opacities, which may represent atelectasis or consolidation (e.g.: aspiration pneumonia or pneumonia). CHEST CT: FINDINGS: Limitations: Respiratory motion artifact degrades the image quality. Thyroid: Unremarkable. Tracheobronchial tree: Intact and patent. Lungs: There is compressive atelectasis in both lower lobes. No ground-glass opacification, lung consolidation, or cavitary lesion is noted. Pleural space: There is a small a moderate right pleural effusion and a small left pleural effusion that measure water density and are not loculated. No pneumothorax. No calcified pleural plaques. Heart: The left atrium is dilated. There are coronary artery, aortic valve, and mitral annular calcifications. No pericardial effusion is noted. There are postoperative changes from a CABG. Mediastinal space: No mediastinal mass, fluid collection, or pneumomediastinum. Aorta: No thoracic aortic aneurysm or intramural hematoma is noted. There are extensive atherosclerotic calcifications. Lymph nodes: There are subcentimeter mediastinal lymph nodes. However, no abnormally enlarged lymph nodes measuring greater than 1 cm in short axis are noted. Diaphragm: Intact. Liver: The imaged portion of the liver is unremarkable. The inferior aspect of the right hepatic lobe was not fully imaged. Gallbladder and bile ducts: There has been a cholecystectomy. There is no fluid collection in the gallbladder fossa. No dilation of the bile ducts is noted. Pancreas: There is fatty infiltration of the pancreas. The head of the pancreas was not fully imaged. Spleen: Unremarkable. No splenomegaly is noted. Adrenals: Normal. No adrenal mass is noted. Kidneys and ureters: There is a partially imaged 5.5 cm benign-appearing simple exophytic cyst arising from the interpolar region of the left kidney, which is stable compared to the prior CT chest on 09/14/2017. The kidneys were not fully imaged. Bones/joints: There is no fracture or dislocation. No suspicious osteolytic or osteoblastic lesion. Intact median sternotomy suture wires are noted fixating a healed median sternotomy. 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 There is a suture anchor in the right humeral head. Degenerative changes are present in the thoracic spine. Soft tissues: Unremarkable. No soft tissue fluid collection. IMPRESSION: 1. Small to moderate right pleural effusion and a small left pleural effusion with associated compressive atelectasis in both lower lobes. 2. No CT findings to suggest pneumonia. MICROBIOLOGY: Please see below. ASSESSMENT: This is an 89 YO M with history of CAD, PVD, recent amputation of all toes on left foot who presents with foul smell, increased drainage, cough and subjective fevers found to have soft tissue swelling at the left 1st and 2nd metatarsals concerning for osteomyelitis. PLAN: 1. Left foot osteomyelitis: -Foot XR shows irregularity of distal ends of left 1st, 2nd, 3rd and 5th metatarsals concerning for osteomyelitis -Leukocytosis noted at 21.8 -CRP elevated at 21.3 -Will start empiric Vancomycin/Zosyn with plan to deescalate -Left foot wound culture and gram stain pending -MRSA screen pending -Advanced wound care consult in place (Juan M) -Recommend day team consult podiatry for possible debridement 2. Labored breathing and low grade fevers: concerning for PNA -CXR shows bibasilar airspace opacities concerning for atelectasis vs PNA. CT chest not concerning for PNA -CT Chest with Small to moderate right pleural effusion and a small left pleural effusion with associated compressive atelectasis in both lower lobes. -Will order sputum culture -BNP elevated at 7129, patient appears euvolemic on exam, no crackles appreciated, no oxygen requirement 3. Hyponatremia: likely hypovolemic -Will recheck in AM -Serum Osm, urine studies pending 4. History of CAD s/p CABG and stents -Continue ASA, Rosuvastatin 5. Atrial fibrillation: rate is controlled -Continue Eliquis 6. Insulin-dependent DM2: -holding home Januvia for time being -Levemir 34U daily + SSI + hypoglycemic protocol -Consistent carbohydrate diet 7. CKD 3: -Cr is currently 1.67, baseline appears to be around 1.5 -Will hold home lasix/spironolactone for now 8. Anemia: hgb found to be 9.1 -Baseline appears to be 10-12 -Will type/screen for now. Due to his CAD, he must stay above 9.0. -No overt signs of bleeding. Stool occult pending 9. HTN: -Continue Amlodipine 10. BPH: -Continue Flomax 11. Hypothyroidism: -TSH/T4 pending -Continue home levothyroxine DVT ppx: On Eliquis DISPO: Needs wound care and podiatry consult in AM Vital Signs Vital Signs Date Time Temp Pulse Resp B/P (MAP) Pulse Ox O2 Delivery O2 Flow Rate FiO2 07/03/20 01:30 93 20 157/71 (99) 95 Room Air 11/30/20 21:58 95 07/02/20 20:45 99.3 Laboratory Data Labs 24H Laboratory Tests 2 07/02/20 21:47: Immature Granulocyte % (Auto) 1.0, Neutrophils (%) (Auto) 85.8H, Lymphocytes (%) (Auto) 6.6L, Monocytes (%) (Auto) 6.2H, Eosinophils (%) (Auto) 0.1, Basophils (%) (Auto) 0.3, Neutrophils # (Auto) 18.7H, Lymphocytes # (Auto) 1.4L, Monocytes # (Auto) 1.4H, Eosinophils # (Auto) 0.0, Basophils # (Auto) 0.1, Nucleated Red Blood Cells % (auto) 0.0, Prothrombin Time 21.6H, Prothromb Time International Ratio 1.83, Activated Partial Thromboplast Time 48.7H, Anion Gap 8, Glomerular Filtration Rate 41.4, Lactic Acid Level 1.3, Calcium Level 7.8L, Total Bilirubin 0.6, Direct Bilirubin 0.4H, Aspartate Amino Transf (AST/SGOT) 17, Alanine Aminotransferase (ALT/SGPT) 17, Alkaline Phosphatase 255H, Total Creatine Kinase 19L, Creatine Kinase MB < 1.0, Creatine Kinase MB Relative Index 5.26H, Troponin I 0.06, C-Reactive Protein, Quantitative 21.30H, CC-Ygw-X-Type Natriuretic Peptide 7129H, Total Protein 6.0L, Albumin 1.9L, Albumin/Globulin Ratio 0.5 07/02/20 23:11: Blood Gas Bicarbonate Standard 24.9, Arterial Blood pH 7.511H, Arterial Blood Partial Pressure CO2 29.3L, Arterial Blood Partial Pressure O2 128.7H, Arterial Blood Total CO2 23.8, Arterial Blood HCO3 22.9, Arterial Blood Base Excess 0.4, Arterial Blood Oxygen Saturation 98.7 07/02/20 23:19: Coronavirus (COVID-19)(PCR) NEGATIVE, Influenza Type A (RT-PCR) NEGATIVE, Influenza Type B (RT-PCR) NEGATIVE, Respiratory Syncytial Virus (RT-PCR NEGATIVE 07/02/20 23:37: Urine Color YELLOW, Urine Appearance HAZY, Urine pH 5.0, Urine Specific [place] 1.012, Urine Protein 2+H, Urine Glucose (Auto)(UA) NEGATIVE, Urine Ketones (Auto) NEGATIVE, Urine Blood NEGATIVE, Urine Nitrite NEGATIVE, Urine Bilirubin NEGATIVE, Urine Urobilinogen 0.2, Urine Leukocyte Esterase (Auto) NEGATIVE, Urine WBC (Auto) 1, Urine RBC (Auto) 1, Urine Hyaline Casts (Auto) 0, Urine Bacteria (Auto) NEGATIVE, Urine Squamous Epithelial Cells 3, Urine Sperm (Auto) CBC/BMP Laboratory Tests 07/02/20 21:47 Microbiology Microbiology 07/02/20 Blood Culture, Received Pending Home Medications Scheduled Amlodipine Besylate (Amlodipine Besylate) 10 Mg Tablet, 10 MG PO DAILY Apixaban (Eliquis) 2.5 Mg Tab, 2.5 MG PO BID Aspirin (Aspirin EC) 81 Mg Tablet.dr, 81 MG PO DAILY Esomeprazole Magnesium (Esomeprazole Magnesium) 40 Mg Capsule.dr, 40 MG PO DAILY Finasteride (Finasteride) 5 Mg Tab, 5 MG PO DAILY Furosemide (Furosemide) 20 Mg Tab, 20 MG PO DAILY Insulin Glargine,Hum.rec.anlog (Toujeo Solostar) 300 Unit/Ml Inj, 34 UNITS SC DAILY Insulin Lispro (Humalog Kwikpen U-100) 100 Unit/Ml Inj, 1 DOSE SC AC PER SLIDING SCALE Levothyroxine Sodium (Synthroid) 50 Mcg Tablet, 50 MCG PO DAILY Magnesium Oxide (Magnesium Oxide) 400 Mg Tablet, 400 MG PO DAILY Multivitamins (Thera M Plus Tablet) 1 Each Tablet, 1 TAB PO DAILY [place]-3 Fatty Acids/Fish Oil ([place] 3 1,000 mg Softgel) 1 Each Capsule, 1 CAP PO BID Rosuvastatin Calcium (Rosuvastatin Calcium) 20 Mg Tablet, 20 MG PO QPM TAKES AFTER DINNER Sitagliptin Phosphate (Januvia) 25 Mg Tablet, 25 MG PO DAILY Spironolactone (Spironolactone) 25 Mg Tablet, 25 MG PO DAILY Tamsulosin HCl (Flomax) 0.4 Mg Cap, 0.8 MG PO QPM TAKES AFTER DINNER Tramadol HCl (Tramadol HCl) 50 Mg Tablet, 50 MG PO QHS Scheduled PRN Clotrimazole/Betamethasone Dip (Clotrimazole-Betamethasone Crm) 15 Gm Cream..g., 1 DOSE TOP BID PRN for RASH APPLIES TO RIGHT SIDE OF BELLY NEEDED Allergies Coded Allergies: No Known Allergies (Unverified , 12/21/18) A-FIB/CHADSVASC A-FIB History Current/History of A-Fib/PAF?: Yes Current PO Anticoag Therapy: Yes GME ATTESTATION GME ATTESTATION My faculty preceptor for this patient encounter was physically present during the encounter and was fully available. All aspects of the patient interview, examination, medical decision making process, and medical care plan development were reviewed and approved by the faculty preceptor. The faculty preceptor is aware and concurs with the plan as stated in the body of this note and will attest to such by his/her cosignature. ATTENDING NOTE TIME OF SERVICE 245AM Mr. Fonseca is a 89-year-old who recently had all the toes on his left foot amputated & recently had a left lower extremity angiogram. He also has a hx of , IDDM, CAD/CABG, HFpEF, BPH, PVD, CKD, Dementia A. fib, & HTN. He presented w foul smelling discharge coming from the wound on his left foot and will be admitted for management of left foot osteomyelitis. Plan: c/w Vanc and Zosyn/ will ask the day time team to consult Delmy Garcia, Tonia, and Lefty Rest per 's H&P DONOVAN PHIPPS MD Jul 03, 2020 02:00 ANALI LOPEZ MD Jul 03, 2020 06:04
[2020-07-03 03:26] LABS: OSMOLALITY SERUM 274 MOSM/KG (280-301)
[2020-07-03 03:47] LABS: FREE T4 1.66 NG/DL (0.76-1.46)
[2020-07-03 04:30] VITALS: BP 140/61
[2020-07-03] MEDS ORDERED: GABAPENTIN 100 MG CAP PO ONE (05:00)
[2020-07-03] MEDS: LEVOTHYROXINE 50MCG TABLET (0.05MG) PO SCH (05:16)
[2020-07-03] MEDS: amLODIPine 10 MG TAB PO SCH (05:17)
--- NOTE | 2020-07-03 05:38 | ECGEPIP ---
[facility] - ED Test Date: 2020-07-02 Pat Name: JADEN NORMAN Department: Room: - Gender: Male [employer] Supervisor: daina : [id number] Requested By: BREEZY FREY Order Number: [id number] Reading MD: Marcello Watkins Measurements Intervals [place] Rate: 72 P: MI: 0 QRS: 75 QRSD: 105 T: 126 QT: 413 QTc: 455 Interpretive Statements ATRIAL FIBRILLATION POSSIBLE PRIOR INFERIOR INFARCT MODERATE INTRAVENTRICULAR CONDUCTION DELAY NONSPECIFIC ST & T-WAVE ABNORMALITY SIMILAR TO 05/14/20 Electronically Signed on 07-03-2020 5:38:29 EST by Marcello Watkins
[2020-07-03 06:42] LABS: CREATININE,RANDOM URINE 68.3 MG/DL
[2020-07-03] MEDS: HumaLOG INSULIN (NovoLOG) PER UNIT SC SCH ×4 (07:30→21:00)
[2020-07-03 08:00] VITALS: BP 152/86
[2020-07-03] MEDS: LEVEMIR (INSULIN DETEMIR) 1 UNITS/0.01ML SC SCH (08:07)
[2020-07-03] MEDS: ASPIRIN 81 MG ENTERIC TAB PO SCH (08:13)
[2020-07-03] MEDS: ACETAMINOPHEN TAB 650MG DOSE (2X325MG) PO PRN (08:13)
[2020-07-03] MEDS: PANTOPRAZOLE 40MG TAB (PROTONIX) PO SCH (08:13)
[2020-07-03] MEDS: FINASTERIDE 5 MG TAB PO SCH (08:13)
[2020-07-03] MEDS: PIPERACILLIN/TAZOBACTAM SOD 2.25 GM in D5W MINI-BAG PLUS 50 ML IV SCH ×3 (08:13→18:15)
[2020-07-03] MEDS: APIXABAN 2.5 MG TAB (ELIQUIS) PO SCH ×2 (08:13→21:00)
[2020-07-03] MEDS ORDERED: LEVEMIR (INSULIN DETEMIR) 1 UNITS/0.01ML SC ONE (08:15)
[2020-07-03] MEDS ORDERED: amLODIPine 10 MG TAB PO SCH (09:00)
[2020-07-03] MEDS ORDERED: SPIRONOLACTONE 25 MG TAB PO SCH (09:00)
[2020-07-03] MEDS ORDERED: FUROSEMIDE 20 MG TAB PO SCH (09:00)
[2020-07-03] MEDS ORDERED: SITagliptin 50 MG TAB (JANUVIA) PO SCH (09:00)
[2020-07-03 12:00] VITALS: BP 136/65
--- NOTE | 2020-07-03 13:21 | IPNPDOC ---
Text Note Date of Service The patient was seen on 07/03/20. NOTE Subjective: No any acute events overnight. In the morning patient continues to have a low-grade fever Objective: GENERAL APPEARANCE: Elderly male with dementia HEENT: no scleral icterus, plus JVD, EOMI CARDIOVASCULAR: Irregularly irregular LUNGS: Diminished lung sounds bilaterally ABDOMEN: soft & not tender w palpitation MUSCULOSKELETAL: The patient's left foot was bandaged, I will examine foot with travel consultant today INTEGUMENT: no generalized palor NEUROLOGICAL: cranial nerve function from 2-12 intact intact, follows commands, speech not dysarthric, not oriented Assessment and plan Patient is 89 years old male with past history of CAD, PVD, recent amputation of all toes on left foot who presents with sepsis secondary to infected wound of left foot Sepsis Patient has leukocytosis, fever with tachypnea Secondary to infected wound of left foot status post all toes amputation. Foot XR shows irregularity of distal ends of left 1st, 2nd, 3rd and 5th metatarsals concerning for osteomyelitis Await blood culture MRSA negative, DC vancomycin, continue Zosyn IV Appreciate/agree with travel consultant consult Await senior design engineering specialist consult Dyspnea Most likely secondary to sepsis in top of CHF exacerbation BNP elevated at 7129 CT chest negative for acute infiltrate CHF exacerbation BNP elevated Echo ordered Cardiac diet I's and O's I will hold Lasix until sepsis resolution Hyponatremia Most likely secondary to CHF exacerbation Continue to monitor History of CAD s/p CABG and stents Continue ASA, Rosuvastatin Atrial fibrillation: rate is controlled Continue Eliquis Insulin-dependent DM2 Insulin sliding scale Levemir Diabetes diet YASIR Secondary to sepsis and CHF exacerbation Continue to monitor Anemia Anemia of chronic diseases Stool occult pending Iron study HTN: Continue home cardioprotective medication 10. BPH: -Continue Flomax 11. Hypothyroidism: levothyroxine VS,Fishbone, I+O VS, Fishbone, I+O Laboratory Tests 07/02/20 21:47 Vital Signs Date Time Temp Pulse Resp B/P (MAP) Pulse Ox O2 Delivery O2 Flow Rate FiO2 07/03/20 11:23 100.7 07/03/20 08:00 89 18 152/86 (108) 90 Room Air 07/02/20 21:58 95 I&O- Last 24 Hours up to 6 AM 07/03/20 06:00 Intake Total 250 ml Output Total 600 ml Balance -350 ml DROZHZHIN,DARIUS DO Jul 03, 2020 13:21
[2020-07-03 14:54] LABS: PERCENT SATURATION 7.4 % (19.7-50.0)
[2020-07-03 16:00] VITALS: BP 144/72
[2020-07-03] MEDS ORDERED: FUROSEMIDE 20MG/2ML VIAL (J1940) IV SCH (17:00)
[2020-07-03] MEDS: IPRATROPIUM 0.5MG/ALBUTEROL 2.5MG INH SOL UD 3ML (DUONEB) NEB PRN (17:35)
--- NOTE | 2020-07-03 18:30 | CR ---
CONSULTATION DATE OF CONSULTATION: 07/03/2020 CONSULT REQUESTED BY: Nathaly Starr MD REASON FOR CONSULTATION: Treatment recommendations for open, non-healing, left transmetatarsal amputation site. This is an 89-year-old male with an element of senile dementia who was treated and operated on at [facility] for an ischemic left great toe. Patient underwent angioplasty and due to the ischemic necrosis of the digit, underwent amputation of the toe. This did not heal and the wound dehisced and the patient went on to develop diffuse distal ischemic necrosis requiring a transmetatarsal amputation of the left foot. This did not heal. When the patient was returned to [facility], the orders indicated wound vacuum assisted closure (VAC) therapy, which is not advisable in an ischemic limb as this can further cause additional localized necrosis which occurred. The patient was referred to our advanced wound care center and debrided last week under local anesthesia, lidocaine 2% without epinephrine, and the area was cleaned out extensively using scissors, forceps, and scalpel, and bone rongeur. At the completion of the debridement, the wound looked relatively clean without ischemic areas. Dressing at that time included Alginate and a cover foam dressing. When seen today, it appears that there is extensive recurrent ischemic necrosis to the amputation site. This is related to ischemia and not infection. Wound cultures will be positive, however, these are colonized chronic open wounds and extensive antibiotic therapy will not be beneficial. The question arises as to the best approach. The patient is not experiencing any pain and to do further extensive operating room (OR) debridement does not seem prudent at this time. This is especially true if the family is considering a major amputation which would be above-knee. While this would solve the problem of the wound, it does put the patient at significant risk postoperatively to see if he would actually survive a procedure as such. The alternative approach, as long as the patient is not septic and does not show any evidence of cellulitis, which is what I saw on telemedicine, is to clean the wound with Vashe to control odor, and to use Silver Alginate and a cover dressing with a heel float boot to avoid pressure on the heel. I will discuss this with Dr. Olea who has seen the patient also in consultation.
[2020-07-03 20:00] VITALS: BP 124/56
[2020-07-03] MEDS: GABAPENTIN 100 MG CAP PO SCH (20:58)
[2020-07-03] MEDS: TAMSULOSIN 0.4 MG CAP PO SCH (21:00)
[2020-07-03] MEDS: ROSUVASTATIN 10 MG TAB (CRESTOR) PO SCH (21:00)
[2020-07-03] MEDS: traMADol 50 MG TAB PO SCH (21:00)
[2020-07-04] VITALS: BP_SYST 127; BP_SYST 141; BP_DIAS 59; BP_DIAS 68
[2020-07-04] MEDS: PIPERACILLIN/TAZOBACTAM SOD 2.25 GM in D5W MINI-BAG PLUS 50 ML IV SCH ×4 (01:36→18:12)
[2020-07-04] MEDS ORDERED: VANCOMYCIN HCL 1,000 MG, VIAL MATE ADAPTER 1 EACH in D5W 250 ML IV SCH (03:00)
[2020-07-04 04:00] VITALS: BP 128/58
[2020-07-04] MEDS: LEVOTHYROXINE 50MCG TABLET (0.05MG) PO SCH (06:11)
[2020-07-04 06:26] LABS: HEMATOCRIT 24.4 % (42.0-52.0); HEMOGLOBIN 8.2 g/dl (13.5-17.5); MEAN CORPUSCULAR HEMOGLOBIN 26.8 pg (27.0-33.0); MEAN CORPUSCULAR HGB CONC 33.6 g/dl (32.0-36.5); MEAN CORPUSCULAR VOLUME 79.7 fl (80.0-96.0); PLATELET COUNT, AUTOMATED 410 10^3/uL (150-450); RED BLOOD COUNT 3.06 10^6/uL (4.30-6.10); WHITE BLOOD COUNT 23.3 10^3/uL (4.0-10.0)
[2020-07-04 06:55] LABS: CALCIUM LEVEL 7.7 MG/DL (8.8-10.2); CREATININE FOR GFR 1.81 MG/DL (0.70-1.30); GLOMERULAR FILTRATION RATE 37.8 (>35); MAGNESIUM LEVEL 1.1 MG/DL (1.8-2.4); POTASSIUM SERUM 3.8 MEQ/L (3.5-5.1)
[2020-07-04] MEDS: HumaLOG INSULIN (NovoLOG) PER UNIT SC SCH ×4 (07:18→20:25)
[2020-07-04] MEDS: LEVEMIR (INSULIN DETEMIR) 1 UNITS/0.01ML SC SCH (07:31)
[2020-07-04] MEDS: APIXABAN 2.5 MG TAB (ELIQUIS) PO SCH (07:31)
[2020-07-04] MEDS: ASPIRIN 81 MG ENTERIC TAB PO SCH (07:31)
[2020-07-04] MEDS: FINASTERIDE 5 MG TAB PO SCH (08:04)
[2020-07-04] MEDS: PANTOPRAZOLE 40MG TAB (PROTONIX) PO SCH (08:05)
[2020-07-04] MEDS: amLODIPine 10 MG TAB PO SCH (08:05)
--- NOTE | 2020-07-04 09:10 | CR.PDOC ---
General Date of Consultation: Jul 04, [address] Brock Patient is an 89 year old male with severe PAD, previously seen by Dr. Brock for angiogram left lower extremity 03/23/20 with attempt to cross left superficial femoral artery chronic total occlusion aborted. At that time it was discussed with the patient that open surgery was recommended with left common femoral and superficial femoral endarterectomy, the patient was known to have severe tibial disease which would need to be contended with possibly by endovascular approach as discussed by Dr. Brock. Plan was for follow-up as outpatient to proceed with open procedure however the patient canceled his appointment 04/26/20 and did not return to the clinic for follow-up. The patient proceeded with L popliteal bypass graft 04/27/20 at [facility], with subsequent gangrene of L foot, amputation of all toes. The patient was apparently admitted to [facility] from 05/02/20-06/18/20 for rehabilitation and care of wound VAC on his left foot. The patient's wound VAC was removed at time of discharge from [facility] and the patient had follow-up with Dr. Mcgowan for continued wound care. The patient was admitted to [facility] 07/03/20 related to fever for 3 days, decreased appetite, cough and foul odor from the wound. Vascular surgery is consulted regarding PAD and evaluation for AKA versus BKA. The patient is NPO this a.m. for procedure today with Dr. Olea, however this has since been canceled. Eliquis/aspirin is on hold. The patient does not consent for himself, health care proxy is his son Cas. ALLERGIES: Please see below. HOME MEDICATIONS: Please see below. PAST MEDICAL HISTORY: DM2, CAD s/p CABG and stents placement, HTN/HHD/diastolic CHF Chronic anemia GERD, Afib on Eliquis CKD3 Dementia PAST SURGICAL HISTORY: cholecystectomy b/l THR cataract surgery SOCIAL HISTORY: Denies tobacco, alcohol or drug use FAMILY HISTORY: mother- DM Father- IN and CAD REVIEW OF SYSTEMS: As noted in HPI otherwise 11 pt ROS unremarkable. PHYSICAL EXAMINATION: VITAL SIGNS: Please see below. GENERAL APPEARANCE: NAD, sitting in chair. HEENT: MMM RESPIRATORY: CTA. CARDIOVASCULAR: irreg irreg S1S2. ABDOMEN: soft, NT. EXTREMITIES: Status post transmetatarsal amputation left foot. Dressing is in place. There is diffuse erythema of the foot extending up the leg to the proximal pretibial area. Diffusely edematous. I am able to Doppler monophasic signal over the bypass [id number]. I cannot get signal at the left PT. I am able to get if a monophasic signal at the left DP. NEUROLOGICAL: moving all extremities, no focal deficits. PSYCHIATRIC: Alert and responsive to questions and commands and answers questions appropriately, but is very hard of hearing. Left foot x-ray IMPRESSION: 1. Status post left transmetatarsal amputation since the prior left foot x-rays on 04/10/2020, and there is irregularity of distal ends of the remaining portions of the left 1st, 2nd, 3rd, and 5th metatarsals, which may indicate osteomyelitis. 2. Soft tissue wound at the site of the amputation defect near the remaining proximal portions of the left 1st and 2nd metatarsals. Electronically signed by: Romario Estrada On 07/03/2020 00:17:20 Imaging. Bilateral lower extremity arterial ultrasound requested and pending at this time. ASSESSMENT/PLAN: 1. Severe atherosclerosis flandreau vessels lower extremities, Left foot wound status post left transmetatarsal amputation with possible osteomyelitis/sepsis. Vascular surgery is consulted for AKA versus BKA. Arterial study is pending at this time. Podiatry procedure plan for this afternoon was canceled. I have left the patient nothing by mouth as we may be able to add the procedure on for later this afternoon. Continue to hold Eliquis/aspirin for now. The patient does not consent for himself related to dementia. Patient's is . I am attempting to get a hold of the patient's son Cas to obtain informed consent, I left voice mail. I have discussed with the patient's alternate healthcare proxy son Macario, he verbalizes understanding and agreement but states consent will need to come from his brother Cas. Addendum. 07/04/20 10:54 AM. I had left a voicemail and reattempted to contact Cas on his cell phone several times. I subsequently contacted the Grcaiela who reported the patient was at work at [employer]. I subsequently called [employer] and requested to speak with Cas however I was unable to be connected with him. Subsequently Cas returned my call. I extensively reviewed the patient's current status. We had a lengthy discussion regarding proceeding with amputation above knee versus below-knee. The procedure, risks, benefits and alternatives were extensively discussed. All of family's questions were answered. He stated he could not give consent at this time is he needed to speak with his brother Macario. Cas subsequently called again at approximately 10:45 AM. Cas states he does not wish to proceed with surgical procedure for the patient at this time. He does not give consent for surgical procedure at this time. The family wishes to see how it goes and how wound care goes with Dr. Mcgowan. Vascular surgery will sign off for now. Relayed to the patient's hospitalist attending that tentative procedure planned for this afternoon will be canceled per family request. 2. CKD3. Serum creatinine 1.81 with GFR 37.8. Vital Signs/I&O Vital Signs Date Time Temp Pulse Resp B/P (MAP) Pulse Ox O2 Delivery O2 Flow Rate FiO2 07/04/20 04:00 99.0 90 18 128/58 (81) 94 Room Air 07/02/20 21:58 95 I&O- Last 24 Hours up to 6 AM 07/04/20 05:59 Intake Total 1290 ml Output Total 950 ml Balance 340 ml Laboratory Data Labs 24H Laboratory Tests 2 07/03/20 11:28: Bedside Glucose (Misc Panel) 79L 07/03/20 13:36: Iron Level 9L, Total Iron Binding Capacity 122L, Transferrin % Saturation 7.4L 07/03/20 16:31: Bedside Glucose (Misc Panel) 107 07/03/20 20:36: Bedside Glucose (Misc Panel) 96 07/04/20 05:43: Nucleated Red Blood Cells % (auto) 0.0, Anion Gap 8, Glomerular Filtration Rate 37.8, Calcium Level 7.7L, Magnesium Level 1.1L 07/04/20 06:06: Bedside Glucose (Misc Panel) 47L 07/04/20 06:37: Bedside Glucose (Misc Panel) 85 CBC/BMP Laboratory Tests 07/04/20 05:43 Microbiology Microbiology 07/03/20 Gram Stain, Received Pending 07/03/20 Wound Culture, Received Pending 07/03/20 Stool Occult Blood (KAREEM) - Final, Complete 07/03/20 Blood Culture - Preliminary, Resulted No growth after 24 hours . All specim... 07/02/20 Blood Culture - Preliminary, Resulted No growth after 24 hours . All specim... Allergies Coded Allergies: No Known Allergies (Unverified , 12/21/18) Home Medications Scheduled Amlodipine Besylate (Amlodipine Besylate) 10 Mg Tablet, 10 MG PO DAILY, (Reported) Apixaban (Eliquis) 2.5 Mg Tab, 2.5 MG PO BID, (Reported) Aspirin (Aspirin EC) 81 Mg Tablet.dr, 81 MG PO DAILY, (Reported) Esomeprazole Magnesium (Esomeprazole Magnesium) 40 Mg Capsule.dr, 40 MG PO DAILY, (Reported) Finasteride (Finasteride) 5 Mg Tab, 5 MG PO DAILY, (Reported) Furosemide (Furosemide) 20 Mg Tab, 20 MG PO DAILY, (Reported) Insulin Glargine,Hum.rec.anlog (Toujeo Solostar) 300 Unit/Ml Inj, 34 UNITS SC DAILY, (Reported) Insulin Lispro (Humalog Kwikpen U-100) 100 Unit/Ml Inj, 1 DOSE SC AC, (Reported) PER SLIDING SCALE Levothyroxine Sodium (Synthroid) 50 Mcg Tablet, 50 MCG PO DAILY, (Reported) Magnesium Oxide (Magnesium Oxide) 400 Mg Tablet, 400 MG PO DAILY, (Reported) Multivitamins (Thera M Plus Tablet) 1 Each Tablet, 1 TAB PO DAILY, (Reported) [place]-3 Fatty Acids/Fish Oil ([place] 3 1,000 mg Softgel) 1 Each Capsule, 1 CAP PO BID, (Reported) Rosuvastatin Calcium (Rosuvastatin Calcium) 20 Mg Tablet, 20 MG PO QPM, (Rep orted) TAKES AFTER DINNER Sitagliptin Phosphate (Januvia) 25 Mg Tablet, 25 MG PO DAILY, (Reported) Spironolactone (Spironolactone) 25 Mg Tablet, 25 MG PO DAILY, (Reported) Tamsulosin HCl (Flomax) 0.4 Mg Cap, 0.8 MG PO QPM, (Reported) TAKES AFTER DINNER Tramadol HCl (Tramadol HCl) 50 Mg Tablet, 50 MG PO QHS, (Reported) Scheduled PRN Clotrimazole/Betamethasone Dip (Clotrimazole-Betamethasone Crm) 15 Gm Cream..g., 1 DOSE TOP BID PRN for RASH, (Reported) APPLIES TO RIGHT SIDE OF BELLY NEEDED Felicita Alvarez Jul 04, 2020 08:07
[2020-07-04] MEDS ORDERED: MAG SULF 1GM/100ML (MAG RUN) 1 GM in IV 1 EA IV ONE (09:15)
--- NOTE | 2020-07-04 09:33 | IPNPDOC ---
Text Note Date of Service The patient was seen on 07/04/20. NOTE Subjective: No any acute events overnight. Patient denied fever, chills, nausea, vomiting, diarrhea or dysuria Objective: GENERAL APPEARANCE: Elderly male with dementia HEENT: no scleral icterus, plus JVD, EOMI CARDIOVASCULAR: Irregularly irregular LUNGS: Diminished lung sounds bilaterally ABDOMEN: soft & not tender w palpitation MUSCULOSKELETAL: Left diffuse transmetatarsal ischemic necrosis with pus INTEGUMENT: no generalized palor NEUROLOGICAL: cranial nerve function from 2-12 intact intact, follows commands, speech not dysarthric, not oriented Assessment and plan Patient is 89 years old male with past history of CAD, PVD, recent amputation of all toes on left foot who presents with sepsis secondary to infected wound of left foot Sepsis Patient has leukocytosis, fever with tachypnea Secondary to infected wound of left foot status post all toes amputation. Foot XR shows irregularity of distal ends of left 1st, 2nd, 3rd and 5th metatarsals concerning for osteomyelitis Await blood culture MRSA negative, DC vancomycin, continue Zosyn IV Patient was consulted by ground support equipment mechanic and vascular surgeon. Plan: left foot amputation. Dyspnea Most likely secondary to sepsis in top of CHF exacerbation BNP elevated at 7129 CT chest negative for acute infiltrate CHF exacerbation BNP elevated Echo ordered Cardiac diet I's and O's I will hold Lasix until sepsis resolution Hyponatremia Most likely secondary to CHF exacerbation Continue to monitor History of CAD s/p CABG and stents Continue ASA, Rosuvastatin Atrial fibrillation: rate is controlled Continue Eliquis Insulin-dependent DM2 Insulin sliding scale Levemir Diabetes diet YASIR Secondary to sepsis and CHF exacerbation Continue to monitor Anemia Anemia of chronic diseases Stool occult pending Iron study HTN: Continue home cardioprotective medication 10. BPH: -Continue Flomax 11. Hypothyroidism: levothyroxine VS,Fishbone, I+O VS, Fishbone, I+O Laboratory Tests 07/04/20 05:43 Vital Signs Date Time Temp Pulse Resp B/P (MAP) Pulse Ox O2 Delivery O2 Flow Rate FiO2 07/04/20 08:05 92 139/65 07/04/20 04:00 99.0 18 94 Room Air 07/02/20 21:58 95 I&O- Last 24 Hours up to 6 AM 07/04/20 06:00 Intake Total 1290 ml Output Total 950 ml Balance 340 ml DROZHZHIN,DARIUS DO Jul 04, 2020 09:33
[2020-07-04] MEDS ORDERED: MAGNESIUM CHLORIDE 64 MG TABCR (SLO MAG) PO ONE (10:00)
[2020-07-04 12:00] VITALS: BP 129/92
[2020-07-04] MEDS ORDERED: SLF 3 ML SYR IV PRN (12:15)
[2020-07-04] MEDS: SLF 3 ML SYR IV SCH ×2 (12:31→20:28)
--- NOTE | 2020-07-04 13:12 | REP ---
INDICATION: Left LE, Left foot wound/OM. COMPARISON: Comparison study March 22, 2020.. TECHNIQUE: Unilateral left lower extremity arterial Doppler ultrasound: FINDINGS: Ankle brachial index could not be calculated due to noncompressible vessels. Severe plaquing is noted in the left leg especially distal to the knee. Monophasic waveforms are noted at the level of the popliteal and distal to this. There is a 3.3-1 velocity ratio stenosis at the distal popliteal artery segment on the left. The left distal anterior tibial artery is found to be occluded. This is at and distal to the level of the anterior ankle wound. At the level of the wound the anterior wall of the distal anterior tibial artery may be disrupted. No fluid collection is seen. Left lower extremity arterial Doppler velocity chart: Left ESCROW MANAGER PSV 137/159 cm/S Profundal 108 Proximal SFA 160 Mid SFA 92 Distal SFA 85 Popliteal 85/284 Proximal NATALIE 46 Tibial-peroneal trunk 229 Proximal COMMERCIAL LOAN ADMINISTRATOR 114 Distal COMMERCIAL LOAN ADMINISTRATOR 116 Distal NATALIE 23/occluded. IMPRESSION: Extensive atherosclerotic disease as above. Evidence of distal popliteal artery stenosis. Occlusion of the distal anterior tibial artery. Question disruption of the distal artery at the level of the wound. <Electronically signed by Arnaldo Rice > 07/04/20 2095
[2020-07-04 16:00] VITALS: BP 126/73
[2020-07-04] MEDS: ACETAMINOPHEN TAB 650MG DOSE (2X325MG) PO PRN (19:27)
[2020-07-04 20:00] VITALS: BP 132/60
[2020-07-04] MEDS: TAMSULOSIN 0.4 MG CAP PO SCH (20:24)
[2020-07-04] MEDS: GABAPENTIN 100 MG CAP PO SCH (20:24)
[2020-07-04] MEDS: traMADol 50 MG TAB PO SCH (20:25)
[2020-07-04] MEDS: ROSUVASTATIN 10 MG TAB (CRESTOR) PO SCH (20:25)
[2020-07-05] VITALS: BP 129/66
[2020-07-05] MEDS: PIPERACILLIN/TAZOBACTAM SOD 2.25 GM in D5W MINI-BAG PLUS 50 ML IV SCH ×2 (00:54→06:02)
[2020-07-05 05:12] LABS: BASO # 0.1 10^3/uL (0.0-0.2); BASO % 0.3 % (0.0-1.0); EOS # 0.2 10^3/uL (0.0-0.5); EOS % 1.1 % (0.0-3.0); HEMATOCRIT 22.5 % (42.0-52.0); HEMOGLOBIN 7.5 g/dl (13.5-17.5); LYMPH # 0.8 10^3/uL (1.5-5.0); LYMPH % 4.2 % (24.0-44.0); MEAN CORPUSCULAR HEMOGLOBIN 26.5 pg (27.0-33.0); MEAN CORPUSCULAR HGB CONC 33.3 g/dl (32.0-36.5); MEAN CORPUSCULAR VOLUME 79.5 fl (80.0-96.0); MONO # 0.6 10^3/uL (0.0-0.8); MONO % 2.9 % (0.0-5.0); NEUTROPHILS % 89.4 % (36.0-66.0); PLATELET COUNT, AUTOMATED 379 10^3/uL (150-450); RED BLOOD COUNT 2.83 10^6/uL (4.30-6.10)
[2020-07-05 05:37] LABS: CALCIUM LEVEL 7.7 MG/DL (8.8-10.2); CREATININE FOR GFR 1.96 MG/DL (0.70-1.30); GLOMERULAR FILTRATION RATE 34.5 (>35); POTASSIUM SERUM 4.1 MEQ/L (3.5-5.1)
[2020-07-05] MEDS: SLF 3 ML SYR IV SCH ×3 (06:02→20:51)
[2020-07-05] MEDS: LEVOTHYROXINE 50MCG TABLET (0.05MG) PO SCH (06:02)
[2020-07-05 07:43] VITALS: BP 139/61
[2020-07-05] MEDS: HumaLOG INSULIN (NovoLOG) PER UNIT SC SCH ×4 (08:18→20:50)
[2020-07-05 08:19] VITALS: BP 139/61
[2020-07-05] MEDS: FINASTERIDE 5 MG TAB PO SCH (08:19)
[2020-07-05] MEDS: amLODIPine 10 MG TAB PO SCH (08:19)
[2020-07-05] MEDS: ASPIRIN 81 MG ENTERIC TAB PO SCH (08:19)
[2020-07-05] MEDS: PANTOPRAZOLE 40MG TAB (PROTONIX) PO SCH (08:19)
[2020-07-05] MEDS ORDERED: LEVEMIR (INSULIN DETEMIR) 1 UNITS/0.01ML SC SCH (09:00)
--- NOTE | 2020-07-05 09:04 | IPN ---
PROGRESS NOTE DATE: 07/04/2020 Patient seen and examined. He is a little more alert today. He denies current complaints. Vital signs are reviewed. He is currently afebrile, maximum of temperature of 99.4. LABORATORY DATA: White blood cell count elevated at 23.3. Lower extremity examination: Wound remains necrotic with foul-odor and necrotic tissue surrounding the tarsal and lateral wound. ASSESSMENT: An 89-year-old male with peripheral vascular disease (PVD), gangrene secondary to infection. PLAN: Discussion had with the patient's son, [id number], as well as with Dr. Mcgowan. The foot does not appear viable at this time. There is very little likelihood of total wound healing; however, patient and family at this time are not ready to consent for the leg amputation. Certainly that procedure is not without its risks given patient's age and other comorbidities. Patient and his family would at this time like to try to keep from needing to proceed with amputation unless completely necessary. Will plan local wound debridement. Local wound debridement was performed at bedside. Phone consent was obtained from patient's son, Cas. Site was prepped with Betadine solution. Then 15 mL of 1% lidocaine plain was injected surrounding the wound. Using a #15 blade the necrotic 1st metatarsal bone base was disarticulated and sent to pathology. Other necrotic tissue was removed using #10 blade and dermal curette. Bleeding was cauterized with silver nitrate, and a gauze dressing was applied. Dressings to be resumed tomorrow. Will monitor and assess wound and infection progress. If infection becomes under control and wound stabilizes, he can be discharged with followup with Dr. Mcgowan. If wound further progresses without improvement in his infection markers, her may ultimately require leg amputation this admission.
[2020-07-05] MEDS: IPRATROPIUM 0.5MG/ALBUTEROL 2.5MG INH SOL UD 3ML (DUONEB) NEB PRN ×2 (11:29→18:24)
[2020-07-05] MEDS ORDERED: MAG SULF 1GM/100ML (MAG RUN) 1 GM in IV 1 EA IV ONE (11:45)
--- NOTE | 2020-07-05 11:55 | IPNPDOC ---
Text Note Date of Service The patient was seen on 07/05/20. NOTE Subjective: No any acute events overnight. Patient denied fever, chills, nausea, vomiting, diarrhea or dysuria Objective: GENERAL APPEARANCE: Elderly male with dementia HEENT: no scleral icterus, plus JVD, EOMI CARDIOVASCULAR: Irregularly irregular LUNGS: Diminished lung sounds bilaterally ABDOMEN: soft & not tender w palpitation MUSCULOSKELETAL: Left diffuse transmetatarsal ischemic necrosis with pus INTEGUMENT: no generalized palor NEUROLOGICAL: cranial nerve function from 2-12 intact intact, follows commands, speech not dysarthric, not oriented Assessment and plan Patient is 89 years old male with past history of CAD, PVD, recent amputation of all toes on left foot who presents with sepsis secondary to infected wound of left foot Sepsis Patient has leukocytosis, fever with tachypnea Secondary to infected wound of left foot status post all toes amputation. Foot XR shows irregularity of distal ends of left 1st, 2nd, 3rd and 5th metatarsals concerning for osteomyelitis blood culture negative On 07/04/22 Dr Cole did debridement of the necrotic 1st metatarsal bone base Wound culture positive for Proteus mirabilis and corynebacterium sensitive to ceftriaxone MRSA negative, DC vancomycin, DC Zosyn IV If infection becomes under control and wound stabilizes, he can be discharged with followup with Dr. Mcgowan. If wound further progresses without improvement in his infection markers, her may ultimately require leg amputation Dyspnea Resolved Most likely secondary to sepsis in top of CHF exacerbation BNP elevated at 7129 CT chest negative for acute infiltrate Diastolic CHF exacerbation BNP elevated Await echo Cardiac diet I's and O's I will hold Lasix until sepsis resolution Hyponatremia Most likely secondary to CHF exacerbation Worsening today I will check urine and serum osmolality Continue to monitor History of CAD s/p CABG and stents Continue ASA, Rosuvastatin Atrial fibrillation: rate is controlled Continue Eliquis Insulin-dependent DM2 Insulin sliding scale Levemir Diabetes diet YASIR Secondary to sepsis and CHF exacerbation Continue to monitor Anemia Anemia of chronic diseases Stool occult pending Iron study HTN: Continue home cardioprotective medication BPH: -Continue Flomax Hypothyroidism: levothyroxine VS,Fishbone, I+O VS, Fishbone, I+O Laboratory Tests 07/05/20 04:57 Vital Signs Date Time Temp Pulse Resp B/P (MAP) Pulse Ox O2 Delivery O2 Flow Rate FiO2 07/05/20 08:19 89 139/61 07/05/20 07:43 98.6 22 95 Room Air 07/02/20 21:58 95 I&O- Last 24 Hours up to 6 AM 07/05/20 06:00 Intake Total 1580 ml Output Total 750 ml Balance 830 ml DARIUS CARRASQUILLO DO Jul 05, 2020 11:55
--- NOTE | 2020-07-05 12:07 | IPN ---
PROGRESS NOTE DATE: 07/05/2020 Patient is seen and examined. He is confused but denies any pain. VITAL SIGNS: He has remained afebrile. Labs are reviewed. White blood cell count is 19, hemoglobin 7.5. LOWER EXTREMITY EXAMINATION: The odor and general appearance is improved compared to yesterday but there still remains necrotic tissue along the periphery. ASSESSMENT: 89-year-old male with left foot gangrene status post wound and bone debridement. PLAN: Ultimately, this foot is non-salvageable. The question is if the patient should have leg amputation or essentially treat foot with comfort measures only. The family, at this time, appear to want to proceed with comfort measures only unless foot worsens. If this is the case, the patient could be discharged with antibiotics with followup with Dr. Mcgowan with ultimate plans for amputation if wound or condition worsen.
--- NOTE | 2020-07-05 12:07 | CR ---
CONSULTATION DATE: 07/03/2020 REASON FOR CONSULTATION: Foot infection. HISTORY OF PRESENT ILLNESS: Jani Fonseca is an 89-year-old male who was admitted due to worsening of a foot infection. He had recent transmetatarsal amputation. He [facility] and had a recent debridement but had worsening odor and infection noted and he was brought to the hospital for such. On examination, the patient is drowsy and unable to answer questions. PAST MEDICAL HISTORY: Significant for diabetes with neuropathy, coronary artery disease status post CABG, hypertension, diastolic CHF, chronic anemia, GERD, atrial fibrillation on Eliquis, CKD III and dementia. PAST SURGICAL HISTORY: Cholecystectomy, bilateral THR, cataract surgery as well as left foot transmetatarsal amputation, left bypass graft. ALLERGIES: No known drug allergies. FAMILY HISTORY: Noncontributory. REVIEW OF SYSTEMS: Unobtainable. PHYSICAL EXAMINATION: VITAL SIGNS: T-max is 101.9. EXTREMITIES: Lower extremity examination; on the left foot there is erythema and edema to the left foot extending to the ankle. The is necrotic ulceration at the amputation site with foul odor and black necrotic tissue and bone. Pedal pulses are nonpalpable. LABS ON ADMISSION: White blood cell count is 21.8, CRP was 21.3. ASSESSMENT: This is an 89-year-old diabetic male with left foot gangrene and peripheral vascular disease. PLAN: Discussed options with [id number]. The patient at this point in time is unlikely to heal wound even with operative debridement, he may be best served with leg amputation. The [id number] states that she needs to discuss with son who is his health care proxy before any decision is made. Will consult Vascular to evaluate and will discuss once patient's [id number] returns call.
[2020-07-05 12:23] VITALS: BP 120/56
[2020-07-05 12:48] LABS: OSMOLALITY SERUM 305 MOSM/KG (280-301)
[2020-07-05 13:17] LABS: NT-PRO BNP 14500 PG/ML (<450)
[2020-07-05] MEDS: MAGNESIUM GLUCONATE 500 MG TAB PO SCH (13:59)
[2020-07-05] MEDS: cefTRIAXone SOD 2 GM in D5W MINI-BAG PLUS 50 ML IV SCH (14:00)
[2020-07-05 15:23] VITALS: BP 112/73
--- NOTE | 2020-07-05 15:43 | CR ---
CONSULTATION REASON FOR CONSULTATION: Left foot infection. Jani Fonseca is a patient known to me with previous left hallux gangrene. He has since been seen with amputation of his left forefoot. He had bypass on that leg as well. Patient is drowsy and unable to provide a history. I did speak with his [id number] on the phone. MEDICAL HISTORY: Significant for: 1. Peripheral vascular disease. 2. Coronary artery disease with stents. 3. Diabetes. 4. Chronic kidney disease. 5. Atherosclerotic heart disease. 6. Hypertension. 7. Diastolic congestive heart failure. 8. Chronic anemia. 9. BPH. 10. Dementia. 11. Alzheimer's. 12. Gastroesophageal reflux disease (GERD). 13. Atrial fibrillation. SURGICAL HISTORY: 1. Left popliteal bypass graft. 2. Cholecystectomy. 3. Cataract surgery. 4. Bilateral hip replacement. 5. Left transmetatarsal amputation (TMA). SOCIAL HISTORY: Negative for tobacco, alcohol, and other drug use. FAMILY HISTORY: Noncontributory.. ALLERGIES: No known drug allergies. REVIEW OF SYSTEMS: Unobtainable. Vital signs are reviewed. Maximum temperature is 101.9, currently 99.7. Labs are reviewed. White blood cell count is 21.8, hemoglobin 9.1. Creatinine 1.67. CRP is 21.3. X-rays were taken of the left foot, which show irregularity at the distal portions of the 1st, 2nd, 3rd, and 5th metatarsals, which could be suggestive of osteomyelitis. Lower extremity examination: On the left side there has been transmetatarsal amputation. At the distal medial there is a large open wound with necrotic and foul-smelling tissue with exposed necrotic bone, and there is a small purulent necrotic wound on the lateral aspect of the amputation site. Pedal pulses are nonpalpable, There is edema and erythema to this side. 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 PLAN: Discussed treatment options with [id number]. Patient will require surgery to clean out this infection. He, however, has poor likelihood of being able to heal any further foot amputations due to his peripheral vascular disease. He may be best suited with below-knee amputation. [id number] states he does not want to have ongoing multiple surgeries, but she does need to speak with his son, who is healthcare proxy, prior to any surgeries being performed. Patient himself INCOMPLETE/verified/ml
[2020-07-05] MEDS ORDERED: FAT EMULSION IV 20% 500 ML IV SCH (18:00)
[2020-07-05] MEDS ORDERED: SODIUM CHLORIDE IV SCH ×7 (18:00)
[2020-07-05] MEDS ORDERED: [UNRECOGNIZED DRUG - OTHER] IV SCH ×7 (18:00)
[2020-07-05] MEDS ORDERED: SODIUM ACETATE IV SCH ×7 (18:00)
[2020-07-05 20:00] VITALS: BP 112/62
[2020-07-05] MEDS: ROSUVASTATIN 10 MG TAB (CRESTOR) PO SCH (20:49)
[2020-07-05] MEDS: TAMSULOSIN 0.4 MG CAP PO SCH (20:49)
[2020-07-05] MEDS: traMADol 50 MG TAB PO SCH (20:49)
[2020-07-05] MEDS: GABAPENTIN 100 MG CAP PO SCH (20:49)
[2020-07-05] MEDS: LEVEMIR (INSULIN DETEMIR) 1 UNITS/0.01ML SC SCH (20:50)
[2020-07-06] VITALS: BP 130/69
[2020-07-06 04:00] VITALS: BP 127/91
[2020-07-06] MEDS: MAG SULF 1GM/100ML (MAG RUN) 1 GM in IV 1 EA IV SCH ×2 (04:03→05:19)
[2020-07-06] MEDS: LEVOTHYROXINE 50MCG TABLET (0.05MG) PO SCH (05:19)
[2020-07-06] MEDS: SLF 3 ML SYR IV SCH ×2 (05:20→14:00)
[2020-07-06 06:30] LABS: BASO % 0.2 % (0.0-1.0); EOS # 0.1 10^3/uL (0.0-0.5); EOS % 0.4 % (0.0-3.0); HEMATOCRIT 22.5 % (42.0-52.0); HEMOGLOBIN 7.8 g/dl (13.5-17.5); LYMPH % 4.8 % (24.0-44.0); MEAN CORPUSCULAR HEMOGLOBIN 27.1 pg (27.0-33.0); MEAN CORPUSCULAR HGB CONC 34.7 g/dl (32.0-36.5); MEAN CORPUSCULAR VOLUME 78.1 fl (80.0-96.0); MONO # 1.1 10^3/uL (0.0-0.8); MONO % 4.8 % (0.0-5.0); NEUTROPHILS # 19.3 10^3/uL (1.5-8.5); NEUTROPHILS % 88.6 % (36.0-66.0); PLATELET COUNT, AUTOMATED 442 10^3/uL (150-450); RED BLOOD COUNT 2.88 10^6/uL (4.30-6.10); WHITE BLOOD COUNT 21.7 10^3/uL (4.0-10.0)
[2020-07-06 06:53] LABS: CALCIUM LEVEL 7.8 MG/DL (8.8-10.2); CREATININE FOR GFR 2.01 MG/DL (0.70-1.30); GLOMERULAR FILTRATION RATE 33.5 (>35); MAGNESIUM LEVEL 1.9 MG/DL (1.8-2.4); POTASSIUM SERUM 3.8 MEQ/L (3.5-5.1)
[2020-07-06 08:00] VITALS: BP 134/61
[2020-07-06] MEDS: LEVEMIR (INSULIN DETEMIR) 1 UNITS/0.01ML SC SCH (09:00)
[2020-07-06] MEDS ORDERED: LEVEMIR (INSULIN DETEMIR) 1 UNITS/0.01ML SC ONE (09:45)
[2020-07-06] MEDS: ASPIRIN 81 MG ENTERIC TAB PO SCH (10:12)
[2020-07-06] MEDS: PANTOPRAZOLE 40MG TAB (PROTONIX) PO SCH (10:12)
[2020-07-06] MEDS: MAGNESIUM GLUCONATE 500 MG TAB PO SCH (10:12)
[2020-07-06] MEDS: FINASTERIDE 5 MG TAB PO SCH (10:13)
[2020-07-06] MEDS: amLODIPine 10 MG TAB PO SCH (10:13)
[2020-07-06] MEDS: HumaLOG INSULIN (NovoLOG) PER UNIT SC SCH ×3 (10:15→17:30)
--- NOTE | 2020-07-06 11:51 | ECHO ---
DATE OF PROCEDURE: 07/05/2020 Age: 89 Gender: Male Height: 170 cm Weight: 88 kg REFERRING PHYSICIAN: Viktor Mead DO. INDICATION: Congestive heart failure. MEASUREMENTS: IVS 1.0 cm LV 4.8 cm LVPW 1.0 cm LA 4.9 cm Aorta 3.3 cm RV 5.2 cm IVC 2.3 cm FINDINGS: This study is of fair technical quality with difficult visualization. Underlying atrial fibrillation with wide QRS complex and controlled rate. Left ventricle is normal size. There is septal wall motion abnormality possibly related to underlying conduction system disease. The apical segments were poorly visualized, but based on limited views there appears to be hypokinesis of the apex and distal anterior wall. I estimate overall left ventricular ejection fraction (LVEF) around 40% to 45%. Right ventricle is dilated and hypokinetic. There is severe biatrial enlargement. The aortic valve is heavily calcified. Only noncoronary cusp seems to have preserved mobility. Based on 2D imaging, I assume at least moderate aortic stenosis. There are degenerative abnormalities of the mitral valve with mitral annular calcifications and some restriction of leaflet mobility. Tricuspid valve appears normal. Pulmonic valve also appears normal. No pericardial effusion is noted. Inferior vena cava is dilated and there is no significant collapse with inspiration indicative of likely elevated central venous pressure. The aortic root is normal. Aortic arch and abdominal aorta were not well seen. Doppler interrogation of the aortic valve reveals trace insufficiency and probably moderate stenosis. Mean gradient was recorded only at 16 mmHg, but I do believe that the acquisition may not have been completely accurate. There is mild mitral insufficiency and trivial mitral stenosis with mean gradient 3 mmHg. There is moderate tricuspid insufficiency. Calculated pulmonary artery pressure at minimum is in the high 50s corresponding to moderately severe pulmonary hypertension. Trace pulmonic insufficiency is noted. Evaluation of diastolic function is inconclusive due to underlying atrial fibrillation, but tissue Doppler velocities are very low and consequently, I believe there is advanced diastolic dysfunction. CONCLUSIONS: 1. Study is of fair technical quality with challenging visualization. Underlying atrial fibrillation with wide QRS complex and controlled rate. 2. Normal left ventricular (LV) size with segmental wall motion abnormalities as noted above (based on poor visualization), estimated left ventricular ejection fraction (LVEF) 40% to 45%. 3. Dilated hypokinetic right ventricle. 4. Severe biatrial enlargement. 5. Very prominent aortic sclerosis resulting in approximately moderate stenosis (mean gradient only 16 mmHg). 6. Degenerative abnormalities of the mitral valve resulting in mild insufficiency and trivial stenosis (mean gradient 3 mmHg). 7. High central venous pressure and moderately severe pulmonary hypertension. MTDD
[2020-07-06 12:00] VITALS: BP_SYST 128; BP_SYST 146; BP_DIAS 66; BP_DIAS 71
[2020-07-06] MEDS: cefTRIAXone SOD 2 GM in D5W MINI-BAG PLUS 50 ML IV SCH (13:06)
[2020-07-06] MEDS ORDERED: AMPI500C9 PO (15:14)
--- NOTE | 2020-07-06 17:13 | DS.PDOC ---
Discharge Summary General Date of Admission Jul 03, 2020 at 01:35 Date of Discharge 07/06/20 Discharge Summary PROCEDURES PERFORMED DURING STAY: [None]. ADMITTING DIAGNOSES: Sepsis Dyspnea Diastolic CHF exacerbation Hyponatremia History of CAD s/p CABG and stents Atrial fibrillation Insulin-dependent DM2 YASIR Anemia HTN BPH Hypothyroidism DISCHARGE DIAGNOSES: Sepsis Dyspnea Diastolic CHF exacerbation Hyponatremia History of CAD s/p CABG and stents Atrial fibrillation Insulin-dependent DM2 YASIR Anemia HTN BPH Hypothyroidism COMPLICATIONS/CHIEF COMPLAINT: Osteomyelitis. HISTORY OF PRESENT ILLNESS: Patient is 89 years old male with past history of CAD, PVD, recent amputation of all toes on left foot who presents with sepsis secondary to infected wound of left foot HOSPITAL COURSE: During hospital stay following issues addressed Sepsis Patient has leukocytosis, fever with tachypnea Secondary to infected wound of left foot status post all toes amputation. Foot XR shows irregularity of distal ends of left 1st, 2nd, 3rd and 5th metatarsals concerning for osteomyelitis blood culture negative On 07/04/22 Dr Cole did debridement of the necrotic 1st metatarsal bone base Wound culture positive for Proteus mirabilis and corynebacterium sensitive to ceftriaxone MRSA negative, DC vancomycin, DC Zosyn IV If infection becomes under control and wound stabilizes, he can be discharged with followup with Dr. Mcgowan. If wound further progresses without improvement in his infection markers, her may ultimately require leg amputation Family refused amputation and they would like to take the patient home with fol low-up with medication specialist. Dyspnea Resolved Most likely secondary to sepsis in top of CHF exacerbation BNP elevated at 7129 CT chest negative for acute infiltrate Diastolic CHF exacerbation BNP elevated Cardiac diet I's and O's Lasix was on hold due to sepsis Hyponatremia Most likely secondary to CHF exacerbation Worsening today I will check urine and serum osmolality Continue to monitor History of CAD s/p CABG and stents Continue ASA, Rosuvastatin Atrial fibrillation: rate is controlled Continue Eliquis Insulin-dependent DM2 Insulin sliding scale Levemir Diabetes diet YASIR Secondary to sepsis and CHF exacerbation Continue to monitor Anemia Anemia of chronic diseases Stool occult pending Iron study HTN: Continue home cardioprotective medication BPH: -Continue Flomax Hypothyroidism: levothyroxine DISCHARGE MEDICATIONS: Please see below. ALLERGIES: Please see below. PHYSICAL EXAMINATION ON DISCHARGE: VITAL SIGNS: Please see below. GENERAL APPEARANCE: Elderly male with dementia HEENT: no scleral icterus, plus JVD, EOMI CARDIOVASCULAR: Irregularly irregular LUNGS: Diminished lung sounds bilaterally ABDOMEN: soft & not tender w palpitation MUSCULOSKELETAL: Left diffuse transmetatarsal ischemic necrosis with pus INTEGUMENT: no generalized palor NEUROLOGICAL: cranial nerve function from 2-12 intact intact, follows commands, speech not dysarthric, not oriented LABORATORY DATA: Please see below. IMAGING: [facility] NAME: JADEN NORMAN DATE OF : 1930 AGE: 89 SEX: M REPORT #: [id number] ROOM: [facility] TECHNOLOGIST: [facility] DOCTOR: Felicita ROCHA Ordered for Date&Time: 07/04/20928 cc: [~ rep ct ivnm] Service Date&Time: 07/04/20 1111 This report is in Signed status. If this report is in a DRAFT status it has not yet been reviewed by the radiologist for accuracy. Thank you for having your radiology procedures performed at [facility] RADIOLOGY REPORT Date&Time printed: [~ rep prt dt last] [~ rep prt tm last] Page 2 of 2 [place] [address] RADIOLOGY REPORT This report is in Signed status. If this report is in a DRAFT status it has not yet been reviewed by the radiologist for accuracy. Thank you for having your radiology procedures performed at [facility] RADIOLOGY REPORT Date&Time printed: [~ rep prt dt last] [~ rep prt tm last] Page 1 of 1 Left LE, Left foot wound/OM. COMPARISON: Comparison study March 22, 2020.. TECHNIQUE: Unilateral left lower extremity arterial Doppler ultrasound: FINDINGS: Ankle brachial index could not be calculated due to noncompressible vessels. Severe plaquing is noted in the left leg especially distal to the knee. Monophasic waveforms are noted at the level of the popliteal and distal to this. There is a 3.3-1 velocity ratio stenosis at the distal popliteal artery segment on the left. The left distal anterior tibial artery is found to be occluded. This is at and distal to the level of the anterior ankle wound. At the level of the wound the anterior wall of the distal anterior tibial artery may be disrupted. No fluid collection is seen. Left lower extremity arterial Doppler velocity chart: Left WELT BUTTER HAND PSV 137/159 cm/S Profundal 108 Proximal SFA 160 Mid SFA 92 Distal SFA 85 Popliteal 85/284 Proximal NATALIE 46 Tibial-peroneal trunk 229 Proximal FINANCIAL AIDS OFFICER 114 Distal FINANCIAL AIDS OFFICER 116 Distal NATALIE 23/occluded. IMPRESSION: Extensive atherosclerotic disease as above. Evidence of distal popliteal artery stenosis. Occlusion of the distal anterior tibial artery. Question disruption of the distal artery at the level of the wound. <Electronically signed by Arnaldo Rice > 07/04/20 1308 DD: Tyler Rice MD 07/04/20 1255 DT: ALANA 07/04/20 1308 DS: MAURICIO 07/04/20 1255 07/04/20 1255 [~ rep ct labl] PROGNOSIS: Poor ACTIVITY: [As tolerated]. DIET: Regular DISCHARGE PLAN: DISPOSITION: Home ITEMS TO FOLLOWUP ON ON OUTPATIENT: Follow-up with PCP, medication specialist, with classroom assistant DISCHARGE CONDITION: [Stable]. TIME SPENT ON DISCHARGE: Greater than 40minutes. Vital Signs/I&Os Vital Signs Date Time Temp Pulse Resp B/P (MAP) Pulse Ox O2 Delivery O2 Flow Rate FiO2 07/06/20 12:00 97.9 78 18 146/66 (92) 94 Room Air 07/06/20 04:00 1.0 07/02/20 21:58 95 I&O- Last 24 Hours up to 6 AM 07/06/20 06:00 Intake Total 1170 ml Output Total 300 ml Balance 870 ml Laboratory Data Labs 24H Laboratory Tests 2 07/05/20 20:37: Bedside Glucose (Misc Panel) 362H 07/06/20 03:17: Magnesium Level 1.7L 07/06/20 05:32: Magnesium Level 1.9, Immature Granulocyte % (Auto) 1.2, Neutrophils (%) (Auto) 88.6H, Lymphocytes (%) (Auto) 4.8L, Monocytes (%) (Auto) 4.8, Eosinophils (%) (Auto) 0.4, Basophils (%) (Auto) 0.2, Neutrophils # (Auto) 19.3H, Lymphocytes # (Auto) 1.0L, Monocytes # (Auto) 1.1H, Eosinophils # (Auto) 0.1, Basophils # (Auto) 0.0, Nucleated Red Blood Cells % (auto) 0.0, Anion Gap 10, Glomerular Filtration Rate 33.5L, Calcium Level 7.8L 07/06/20 07:30: Bedside Glucose (Misc Panel) 113H 07/06/20 11:59: Bedside Glucose (Misc Panel) 151H CBC/BMP Laboratory Tests 07/06/20 05:32 FSBS Laboratory Tests Test 07/05/20 20:37 07/06/20 07:30 07/06/20 11:59 Range/Units Bedside Glucose (Misc Panel) 362 113 151 83-110 MG/DL Microbiology Microbiology 07/03/20 Gram Stain - Final, Complete 07/03/20 Wound Culture - Final, Complete Proteus Mirabilis Enterococcus Avium Corynebacterium Species 07/03/20 Stool Occult Blood (KAREEM) - Final, Complete 07/03/20 Blood Culture - Preliminary, Resulted No Growth after 72 hours. All specime... 07/02/20 Blood Culture - Preliminary, Resulted No Growth after 72 hours. All specime... Discharge Medications Scheduled Amlodipine Besylate (Amlodipine Besylate) 10 Mg Tablet, 10 MG PO DAILY, (Reported) Ampicillin Trihydrate (Ampicillin Trihydrate) 500 Mg Capsule, 500 MG PO TID Apixaban (Eliquis) 2.5 Mg Tab, 2.5 MG PO BID, (Reported) Aspirin (Aspirin EC) 81 Mg Tablet.dr, 81 MG PO DAILY, (Reported) Esomeprazole Magnesium (Esomeprazole Magnesium) 40 Mg Capsule.dr, 40 MG PO DAILY, (Reported) Finasteride (Finasteride) 5 Mg Tab, 5 MG PO DAILY, (Reported) Furosemide (Furosemide) 20 Mg Tab, 20 MG PO DAILY, (Reported) Insulin Glargine,Hum.rec.anlog (T[place]artemioo Solostar) 300 Unit/Ml Inj, 34 UNITS SC DAILY, (Reported) Insulin Lispro (Humalog Kwikpen U-100) 100 Unit/Ml Inj, 1 DOSE SC AC, (Reported) PER SLIDING SCALE Levothyroxine Sodium (Synthroid) 50 Mcg Tablet, 50 MCG PO DAILY, (Reported) Magnesium Oxide (Magnesium Oxide) 400 Mg Tablet, 400 MG PO DAILY, (Reported) Multivitamins (Thera M Plus Tablet) 1 Each Tablet, 1 TAB PO DAILY, (Reported) Vanduser-3 Fatty Acids/Fish Oil (Vanduser 3 1,000 mg Softgel) 1 Each Capsule, 1 CAP PO BID, (Reported) Rosuvastatin Calcium (Rosuvastatin Calcium) 20 Mg Tablet, 20 MG PO QPM, (Reported) TAKES AFTER DINNER Sitagliptin Phosphate (Januvia) 25 Mg Tablet, 25 MG PO DAILY, (Reported) Spironolactone (Spironolactone) 25 Mg Tablet, 25 MG PO DAILY, (Reported) Tamsulosin HCl (Flomax) 0.4 Mg Cap, 0.8 MG PO QPM, (Reported) TAKES AFTER DINNER Tramadol HCl (Tramadol HCl) 50 Mg Tablet, 50 MG PO QHS, (Reported) Scheduled PRN Clotrimazole/Betamethasone Dip (Clotrimazole-Betamethasone Crm) 15 Gm Cream..g., 1 DOSE TOP BID PRN for RASH, (Reported) APPLIES TO RIGHT SIDE OF BELLY NEEDED Allergies Coded Allergies: No Known Allergies (Unverified , 12/21/18) DARIUS CARRASQUILLO DO Jul 06, 2020 17:13
== END 2020-07-06 18:17 | disposition home health service (06) | DRG 564 ==
LOC: M ED 20:42 → M ED INP 07-03 01:35 → ENRESERV 07-03 03:50 → M PCU 07-03 04:14
PROVIDERS: ADMIT Internal Medicine; ATTEND Internal Medicine
PROC: 0HBNXZZ Excision of Left Foot Skin, External Approach (ICD-10-PCS; principal; 2020-07-04)
DX: T87.44 Infection of amputation stump, left lower extremity (principal); I50.33 Acute on chronic diastolic (congestive) heart failure; A41.9 Sepsis, unspecified organism; E87.1 Hypo-osmolality and hyponatremia; I13.0 Hypertensive heart and chronic kidney disease with heart failure and stage 1 through stage 4 chronic kidney disease, or unspecified chronic kidney disease; N17.9 Acute kidney failure, unspecified; E11.52 Type 2 diabetes mellitus with diabetic peripheral angiopathy with gangrene; N18.30 Chronic kidney disease, stage 3 unspecified; I48.91 Unspecified atrial fibrillation; E03.9 Hypothyroidism, unspecified; N40.0 Benign prostatic hyperplasia without lower urinary tract symptoms; I25.10 Atherosclerotic heart disease of native coronary artery without angina pectoris; Z95.2 Presence of prosthetic heart valve; D64.9 Anemia, unspecified; Z79.82 Long term (current) use of aspirin; Z79.899 Other long term (current) drug therapy; Z79.4 Long term (current) use of insulin; Z79.01 Long term (current) use of anticoagulants; G30.9 Alzheimer's disease, unspecified; F02.80 Dementia in other diseases classified elsewhere, unspecified severity, without behavioral disturbance, psychotic disturbance, mood disturbance, and anxiety; K21.9 Gastro-esophageal reflux disease without esophagitis; Y83.5 Amputation of limb(s) as the cause of abnormal reaction of the patient, or of later complication, without mention of misadventure at the time of the procedure

== ENCOUNTER 2020-07-24 11:38 | Inpatient (IN) | payer MEDICARE ==
[~2020-07-24] VITALS: Ht 170.2 cm; Wt 91.6 kg
[~2020-07-24 11:38] MED LIST changes: +AMLO1TAB25 PO; +AMPI500C9 PO; +CLOT1CRE71 TOP; +TRAM50TA2 PO; +VITMTA PO
[2020-07-24] MEDS ORDERED: GLUCOSE 4GM CHEW TABLET As Ordered ONE (11:56)
[2020-07-24] MEDS ORDERED: DEXTROSE 50% 50 ML SYRINGE As Ordered ONE (12:12)
[2020-07-24] MEDS ORDERED: DEXTROSE 50% 50 ML SYRINGE IV STA (12:13)
[2020-07-24] MEDS ORDERED: NS 1,000 ML IV SCH ×2 (12:14→15:07)
[2020-07-24 12:33] LABS: APPEARANCE, URINE CLEAR (CLEAR); BACTERIA, URINE AUTO NEGATIVE (NEGATIVE); BILIRUBIN, URINE AUTO NEGATIVE (NEGATIVE); BLOOD, URINE BLOOD 1+ (NEGATIVE); COLOR, URINE YELLOW (YELLOW); GLUCOSE, URINE (UA) AUTO NEGATIVE (NEGATIVE); KETONE, URINE AUTO NEGATIVE (NEGATIVE); LEUKOCYTE ESTERASE, URINE AUTO 1+ (NEGATIVE); NITRITE, URINE AUTO NEGATIVE (NEGATIVE); PROTEIN, URINE AUTO NEGATIVE (NEGATIVE); RBC, URINE AUTO 2 /HPF (0-3); SPECIFIC GRAVITY URINE AUTO 1.012 (1.002-1.035); SQUAMOUS EPITHELIAL CELL UR AU 1 /HPF (0-6); UROBILINOGEN, URINE AUTO 0.2 mg/dL (0.0-2.0); WBC, URINE AUTO 6 /HPF (0-3)
[2020-07-24 12:38] LABS: BASO % 0.2 % (0.0-1.0); EOS % 0.1 % (0.0-3.0); HEMATOCRIT 26.7 % (42.0-52.0); HEMOGLOBIN 8.8 g/dl (13.5-17.5); LYMPH # 0.6 10^3/uL (1.5-5.0); LYMPH % 2.8 % (24.0-44.0); MEAN CORPUSCULAR HEMOGLOBIN 25.8 pg (27.0-33.0); MEAN CORPUSCULAR VOLUME 78.3 fl (80.0-96.0); MONO # 1.3 10^3/uL (0.0-0.8); MONO % 6.2 % (0.0-5.0); NEUTROPHILS # 19.2 10^3/uL (1.5-8.5); NEUTROPHILS % 88.4 % (36.0-66.0); PLATELET COUNT, AUTOMATED 454 10^3/uL (150-450); RED BLOOD COUNT 3.41 10^6/uL (4.30-6.10); WHITE BLOOD COUNT 21.8 10^3/uL (4.0-10.0)
[2020-07-24 12:48] LABS: INR 1.51; PROTHROMBIN TIME 18.5 SECONDS (12.5-14.3)
[2020-07-24 13:15] LABS: ACETONE/KETONE 3.3 MG/DL (<2.81); ALBUMIN 1.8 GM/DL (3.2-5.2); BILIRUBIN,DIRECT 0.2 MG/DL (0.0-0.2); BILIRUBIN,TOTAL 0.5 MG/DL (0.2-1.0); TOTAL PROTEIN 6.6 GM/DL (6.4-8.2)
[2020-07-24 13:16] LABS: AMYLASE 29 U/L (25-115); BLOOD UREA NITROGEN 43 MG/DL (7-18); CALCIUM LEVEL 8.7 MG/DL (8.8-10.2); CARBON DIOXIDE LEVEL 26 MEQ/L (21-32); CHLORIDE LEVEL 97 MEQ/L (98-107); CK-MB VALUE MASS 1.5 NG/ML (<3.6); CPK CREATINE PHOSPHOKINASE 24 U/L (39-308); CREATININE FOR GFR 1.51 MG/DL (0.70-1.30); GLOMERULAR FILTRATION RATE 46.6 (>35); GLUCOSE, FASTING 47 MG/DL (70-100); MB/CK RELATIVE INDEX 6.25 (< OR =4); POTASSIUM SERUM 3.9 MEQ/L (3.5-5.1); SODIUM LEVEL 130 MEQ/L (136-145); TROPONIN I < 0.02 NG/ML (< 0.10)
[2020-07-24 13:18] LABS: RSV AMPLIFICATION NEGATIVE (NEGATIVE)
--- NOTE | 2020-07-24 13:52 | REP ---
INDICATION: SEPSIS/SHOCK COMPARISON: 07/02/2020 TECHNIQUE: Portable AP view of the chest FINDINGS: Stable cardiomegaly and evidence for prior sternotomy. Diffuse chronic interstitial changes are appreciated. Superimposed right lower lobe infiltrate and small effusion appear more prominent than prior examination. No pneumothorax. Skeletal structures stable. IMPRESSION: Right lower lobe opacities suggesting infiltrate and effusion appear more prominent than prior examination. <Electronically signed by Bret Adame > 07/24/20 1407
[2020-07-24] MEDS ORDERED: APAP325T4 PO (13:57)
[2020-07-24] MEDS ORDERED: LevoFLOXacin IV 500 MG in IV 1 EA IV ONE (14:15)
[2020-07-24 14:18] LABS: VENOUS BASE EXCESS -1.5 (-2.0-2.0); VENOUS O2 SATURATION 99.8 % (60.0-80.0); VENOUS PARTIAL PRESSURE CO2 23.5 mmHg (38.0-50.0); VENOUS PARTIAL PRESSURE O2 260.9 mmHg (30.0-50.0); VENOUS PH 7.547 UNITS (7.330-7.430); VENOUS STANDARD HCO3 23.2 MEQ/L; VENOUS TOTAL CO2 20.7 MEQ/L (24.0-28.0)
[2020-07-24] MEDS ORDERED: PIPERACILLIN/TAZOBACTAM SOD 4.5 GM in D5W MINI-BAG PLUS 50 ML IV SCH (15:15)
[2020-07-24] MEDS ORDERED: ACETAMINOPHEN TAB 650MG DOSE (2X325MG) PO PRN (15:15)
[2020-07-24] MEDS ORDERED: GLUCOSE 4GM CHEW TABLET PO PRN (15:30)
[2020-07-24] MEDS ORDERED: DEXTROSE 50% 50 ML SYRINGE IV PRN (15:30)
[2020-07-24] MEDS ORDERED: LEVEMIR (INSULIN DETEMIR) 1 UNITS/0.01ML SC ONE (15:30)
[2020-07-24] MEDS ORDERED: GLUCAGON INJ 1MG VIAL SC PRN (15:30)
[2020-07-24] MEDS ORDERED: VANCOMYCIN HCL 1,000 MG, VIAL MATE ADAPTER 1 EACH in D5W 250 ML IV SCH (15:45)
[2020-07-24] MEDS ORDERED: MORPHINE 2 MG/ML 1ML VIAL (J2270) IV PRN (16:00)
[2020-07-24] MEDS ORDERED: SCOPOLAMINE 1MG TRANSDERMAL PATCH TOP PRN (16:00)
[2020-07-24] MEDS ORDERED: BISACODYL 10 MG SUPP PR PRN (16:00)
[2020-07-24] MEDS ORDERED: ATROPINE SULFATE 1% OP SOLN 2 ML BTL SL PRN (16:00)
[2020-07-24] MEDS ORDERED: ONDANSETRON 4 MG ORAL DISINTEGRATING TAB PO PRN (16:00)
[2020-07-24] MEDS ORDERED: LORazepam 1 MG TAB PO PRN (16:00)
[2020-07-24] MEDS ORDERED: MORPHINE 10MG/0.5ML ORAL CONCENTRATE SOLUTION U/D SL PRN (16:00)
[2020-07-24] MEDS ORDERED: FLEET ENEMA PR PRN (16:00)
--- NOTE | 2020-07-24 16:03 | HPEPDOC ---
General Date of Admission Jul 24, 2020 at 15:07 Date of Service: Jul 24, 2020 Chief Complaint The patient is a 89-year-old male admitted with a reason for visit of Osteomyelitis. Source: Family Exam Limitations: Dementia Timing/Duration: Week(s) Severity: Severe History of Present Illness Patient is 89 years old male with past medical history of PVD, chronic osteomyelitis, CAD s/p CABG and stents placement, diabetes presented to the hospital with generalized weakness. Of note patient was recently admitted with left foot osteomyelitis, scientific informatics project leader recommended amputation of the left foot, how ever the family declined amputation. Today, in ER patient was found to have foul-smelling unstageable wound of the left foot with large amount of pus, leukocytosis of 21.8, C-reactive protein 26.8, creatinine 1.5. After discussion with family about poor prognosis, the family decided to transfer patient to [facility]. Home Medications Scheduled Aspirin (Aspirin EC) 81 Mg Tablet.dr, 81 MG PO DAILY, (Reported) Tramadol HCl (Tramadol HCl) 50 Mg Tablet, 50 MG PO QHS, (Reported) Scheduled PRN Acetaminophen (Acetaminophen) 325 Mg Tablet, 650 MG PO Q4H PRN for PAIN, (Reported) Clotrimazole/Betamethasone Dip (Clotrimazole-Betamethasone Crm) 15 Gm Cream..g., 1 DOSE TOP BID PRN for RASH, (Reported) APPLIES TO RIGHT SIDE OF BELLY NEEDED Allergies Coded Allergies: No Known Allergies (Unverified , 12/21/18) Past Medical History Medical History 1. Recent [facility] rehab s/p [facility] hospitalization for gangrene of L foot, amputation of all toes. Toes grew Enterococcus faecalis 2. PVD 3. CAD s/p CABG and stents placement 4. Diabetes mellitus type 2 5. Chronic kidney disease stage III 6. History of cellulitis of the left foot 7. Atherosclerotic heart disease 8. Hypertension with hypertensive heart disease 9. Diastolic congestive heart failure 10. History of chronic anemia 11. BPH 12. Dementia, Alzheimer's type 13. GERD 14. Atrial fibrillation on Eliquis Surgical History 1. L popliteal bypass graft 04/27/20. Surgical cultures grew Stenotrophomonas maltophila, treated with Zosyn/Levothyroxine 2. Cholecystectomy 3. Cataract surgery 4. Bilateral hip replacement Family History Mother with diabetes, father with MT and CAD Social History * Smoker: Denies Alcohol: Denies Drugs: denies A-FIB/CHADSVASC A-FIB History Current/History of A-Fib/PAF?: Yes Current PO Anticoag Therapy: Yes Review of Systems Constitutional: Reports: Weakness, Fatigue Eyes: Reports: Pain (unobtainable due to severe dementia) ENT: Reports: Head Aches Physical Examination General Exam: Positive: Mild Distress Eye Exam: Positive: PERRLA ENT Exam: Positive: Atraumatic Neck Exam: Positive: Supple; Negative: JVD Chest Exam: Positive: Diminished Heart Exam: Positive: Tachycardic, Irregular Rhythm Telemetry: Positive: Atrial fibrillation Abdomen Exam: Positive: Normal bowel sounds Extremity Exam: Positive: Other (unstageable wound of metatarsal area of left foot); Negative: Cyanosis Skin Exam: Positive: Other skin issue (large amount of pus over metatarsal area of left foot) Neuro Exam: Positive: Cranial Nerves 3-12 NL Psych Exam: Negative: Memory Intact Vital Signs Vital Signs Date Time Temp Pulse Resp B/P (MAP) Pulse Ox O2 Delivery O2 Flow Rate FiO2 07/24/20 15:01 156/91 (112) 07/24/20 14:48 83 95 07/24/20 13:50 19 07/24/20 13:38 Room Air 07/24/20 11:56 98.4 Laboratory Data Labs 24H Laboratory Tests 2 07/24/20 11:54: Bedside Glucose (Misc Panel) 39*L 07/24/20 12:10: Bedside Glucose (Misc Panel) 47L, POC Glucose (Misc Panel) 49L, POC Sodium (Misc Panel) 129L, POC Potassium (Misc Panel) 4.0, POC Chloride (Misc Panel) 96L, POC Total CO2 (Misc Panel) 27.0, POC Blood Urea Nitrogen (Misc Panel 41H, POC Ionized Calcium (Misc Panel) 4.5, POC Creatinine (Misc Panel) 1.5H, POC Hematocrit (Misc Panel) 26.0L 07/24/20 12:15: Anion Gap 7L, Glomerular Filtration Rate 46.6, Calcium Level 8.7L, Total Creatine Kinase 24L, Creatine Kinase MB 1.5, Creatine Kinase MB Relative Index 6.25H, Troponin I < 0.02, C-Reactive Protein, Quantitative 26.80H, Amylase Level 29 07/24/20 12:16: Immature Granulocyte % (Auto) 2.3, Neutrophils (%) (Auto) 88.4H, Lymphocytes (%) (Auto) 2.8L, Monocytes (%) (Auto) 6.2H, Eosinophils (%) (Auto) 0.1, Basophils (%) (Auto) 0.2, Neutrophils # (Auto) 19.2H, Lymphocytes # (Auto) 0.6L, Monocytes # (Auto) 1.3H, Eosinophils # (Auto) 0.0, Basophils # (Auto) 0.0, Nucleated Red Blood Cells % (auto) 0.0, Prothrombin Time 18.5H, Prothromb Time International Ratio 1.51, Urine Color YELLOW, Urine Appearance CLEAR, Urine pH 6.0, Urine Specific [place] 1.012, Urine Protein NEGATIVE, Urine Glucose (Auto)(UA) NEGATIVE, Urine Ketones (Auto) NEGATIVE, Urine Blood 1+H, Urine Nitrite NEGATIVE, Urine Bilirubin NEGATIVE, Urine Urobilinogen 0.2, Urine Leukocyte Esterase (Auto) 1+H, Urine WBC (Auto) 6H, Urine RBC (Auto) 2, Urine Hyaline Casts (Auto) 0, Urine Bacteria (Auto) NEGATIVE, Urine Squamous Epithelial Cells 1, Urine Sperm (Auto) , Lactic Acid Level 1.2, Total Bilirubin 0.5, Direct Bi lirubin 0.2, Aspartate Amino Transf (AST/SGOT) 43H, Alanine Aminotransferase (ALT/SGPT) 19, Alkaline Phosphatase 301H, Total Protein 6.6, Albumin 1.8L, Albumin/Globulin Ratio 0.4, Lipase 30L, B-Hydroxybutyrate 3.30H 07/24/20 12:34: Coronavirus (COVID-19)(PCR) NEGATIVE, Influenza Type A (RT-PCR) NEGATIVE, Influenza Type B (RT-PCR) NEGATIVE, Respiratory Syncytial Virus (PCR) NEGATIVE 07/24/20 13:00: Bedside Glucose (Misc Panel) 156H 07/24/20 14:08: Blood Gas Bicarbonate Standard 23.2, Venous Blood pH 7.547H, Venous Blood Partial Pressure CO2 23.5L, Venous Blood Partial Pressure O2 260.9H, Venous Blood Total Carbon Dioxide 20.7L, Venous Blood HCO3 20.0L, Venous Blood Oxygen Saturation 99.8H, Venous Blood Base Excess -1.5 07/24/20 14:11: Bedside Glucose (Misc Panel) 103 07/24/20 15:12: Bedside Glucose (Misc Panel) 81L CBC/BMP Laboratory Tests 07/24/20 12:15 07/24/20 12:16 Microbiology Microbiology 07/24/20 Blood Culture, Received Pending 07/24/20 Blood Culture, Received Pending 07/24/20 Urine Culture, Received Pending Assessment/Plan Patient is 89 years old male with past medical history of PVD, chronic osteomyelitis, CAD s/p CABG and stents placement, diabetes presented to the hospital with generalized weakness. Of note patient was recently admitted with left foot osteomyelitis, scientific informatics project leader recommended amputation of the left foot, however the family declined amputation. Today, in ER patient was found to have foul-smelling unstageable wound of the left foot with large amount of pus, leukocytosis of 21.8, C-reactive protein 26.8, creatinine 1.5. After discussion with family about poor prognosis, the family decided to transfer patient to [facility]. Problems (1) Palliative care encounter Status: Acute Problem Text: Hospice consult placed According to family wishes, they would like to have hospice at home. PROJECT SPECIALIST protocol (2) Osteomyelitis of ankle or foot, left, acute Status: Acute (3) A-fib Status: Chronic (4) Foot ulcer with necrosis of bone Status: Acute Plan / VTE VTE Prophylaxis Ordered?: No VTE Exclusion Pharmacological: Other (membership director) DARIUS CARRASQUILLO DO Jul 24, 2020 16:03
[2020-07-24 17:01] VITALS: BP 133/91
[2020-07-24] MEDS ORDERED: HumaLOG INSULIN (NovoLOG) PER UNIT SC SCH ×2 (17:30→21:00)
[2020-07-24] MEDS ORDERED: TAMSULOSIN 0.4 MG CAP PO SCH (18:00)
[2020-07-24] MEDS ORDERED: ROSUVASTATIN 10 MG TAB (CRESTOR) PO SCH (18:00)
[2020-07-24] MEDS ORDERED: traMADol 50 MG TAB PO SCH (21:00)
[2020-07-24] MEDS ORDERED: OMEGA-3 1000MG CAPSULE PO SCH (21:00)
[2020-07-24] MEDS ORDERED: APIXABAN 2.5 MG TAB (ELIQUIS) PO SCH (21:00)
--- NOTE | 2020-07-24 22:58 | ECGEPIP ---
[facility] - ED Test Date: 2020-07-24 Pat Name: JADEN NORMAN Department: Room: - Gender: Male Fruit Rancher: ANAHI : 1930 Requested By: Huong Wood Order Number: [id number] Reading MD: Marcello Watkins Measurements Intervals [place] Rate: 81 P: MN: 0 QRS: 96 QRSD: 109 T: 0 QT: 403 QTc: 469 Interpretive Statements ATRIAL FIBRILLATION BORDERLINE RIGHT AXIS DEVIATION PRIOR INFERIOR INFARCT MODERATE INTRAVENTRICULAR CONDUCTION DELAY NONSPECIFIC ST & T-WAVE ABNORMALITY SIMILAR TO 07/02/20 Electronically Signed on 07-24-2020 22:57:47 EST by Marcello Watkins
[2020-07-25] MEDS ORDERED: LEVOTHYROXINE 50MCG TABLET (0.05MG) PO SCH (06:00)
[2020-07-25] MEDS ORDERED: amLODIPine 10 MG TAB PO SCH (09:00)
[2020-07-25] MEDS ORDERED: FUROSEMIDE 20 MG TAB PO SCH (09:00)
[2020-07-25] MEDS ORDERED: ENOXAPARIN 40MG/0.4ML SYRINGE (J1650 PER 10MG) SC SCH (09:00)
[2020-07-25] MEDS ORDERED: FINASTERIDE 5 MG TAB PO SCH (09:00)
[2020-07-25] MEDS ORDERED: MULTIVITAMINS/MINERALS THERAP 1 TAB PO SCH (09:00)
[2020-07-25] MEDS ORDERED: ASPIRIN 81 MG ENTERIC TAB PO SCH (09:00)
[2020-07-25] MEDS ORDERED: MAGNESIUM OXIDE 400 MG TAB (MAG-OX) PO SCH (09:00)
[2020-07-25] MEDS ORDERED: SPIRONOLACTONE 25 MG TAB PO SCH (09:00)
--- NOTE | 2020-07-25 18:33 | DS.PDOC ---
Discharge Summary General Date of Admission Jul 24, 2020 at 15:07 Date of Discharge 07/24/20 Discharge Summary PROCEDURES PERFORMED DURING STAY: [None]. ADMITTING DIAGNOSES: Palliative care encounter Osteomyelitis of ankle or foot, left, acute A-fib Foot ulcer with necrosis of bone DISCHARGE DIAGNOSES: Palliative care encounter Osteomyelitis of ankle or foot, left, acute A-fib Foot ulcer with necrosis of bone COMPLICATIONS/CHIEF COMPLAINT: Osteomyelitis. HISTORY OF PRESENT ILLNESS: Patient is 89 years old male with past medical history of PVD, chronic osteomyelitis, CAD s/p CABG and stents placement, rosa isela maza presented to the hospital with generalized weakness. Of note patient was recently admitted with left foot osteomyelitis, glassware finisher recommended amputation of the left foot, however the family declined amputation. Today, in ER patient was found to have foul-smelling unstageable wound of the left foot with large amount of pus, leukocytosis of 21.8, C-reactive protein 26.8, cr eatinine 1.5. After discussion with family about poor prognosis, the family decided to transfer patient to [facility]. HOSPITAL COURSE: During hospital stay following issue addressed (1) Palliative care encounter Hospice consult placed According to family wishes, they would like to have hospice at home. [facility] protocol (2) Osteomyelitis of ankle or foot, left, acute Status: Acute (3) A-fib Status: Chronic (4) Foot ulcer with necrosis of bone Status: Acute DISCHARGE MEDICATIONS: Please see below. ALLERGIES: Please see below. PHYSICAL EXAMINATION ON DISCHARGE: VITAL SIGNS: Please see below. General Exam: Positive: Mild Distress Eye Exam: Positive: PERRLA ENT Exam: Positive: Atraumatic Neck Exam: Positive: Supple; Negative: JVD Chest Exam: Positive: Diminished Heart Exam: Positive: Tachycardic, Irregular Rhythm Telemetry: Positive: Atrial fibrillation Abdomen Exam: Positive: Normal bowel sounds Extremity Exam: Positive: Other (unstageable wound of metatarsal area of left foot); Negative: Cyanosis Skin Exam: Positive: Other skin issue (large amount of pus over metatarsal are a of left foot) Neuro Exam: Positive: Cranial Nerves 3-12 NL Psych Exam: Negative: Memory Intact LABORATORY DATA: Please see below. PROGNOSIS: Extremely poor ACTIVITY: [As tolerated]. DIET: Regular DISCHARGE PLAN: Hospice at home ITEMS TO FOLLOWUP ON ON OUTPATIENT: With palliative care DISCHARGE CONDITION: [Stable]. TIME SPENT ON DISCHARGE: Greater than 20 minutes. Vital Signs/I&Os Vital Signs Date Time Temp Pulse Resp B/P (MAP) Pulse Ox O2 Delivery O2 Flow Rate FiO2 07/24/20 17:01 92 133/91 (105) 92 Room Air 07/24/20 13:50 19 07/24/20 11:56 98.4 I&O- Last 24 Hours up to 6 AM 07/25/20 06:00 Intake Total 400 ml Output Total 100 ml Balance 300 ml Laboratory Data Labs 24H Laboratory Tests 2 07/25/20 10:43: Lab Scanned Report Miscellaneous Lab Microbiology Microbiology 07/24/20 Blood Culture - Preliminary, Resulted No growth after 24 hours . All specim... 07/24/20 Blood Culture - Preliminary, Resulted No growth after 24 hours . All specim... 07/24/20 Urine Culture, Received Pending Discharge Medications Scheduled Aspirin (Aspirin EC) 81 Mg Tablet.dr, 81 MG PO DAILY, (Reported) Tramadol HCl (Tramadol HCl) 50 Mg Tablet, 50 MG PO QHS, (Reported) Scheduled PRN Acetaminophen (Acetaminophen) 325 Mg Tablet, 650 MG PO Q4H PRN for PAIN, (Reported) Clotrimazole/Betamethasone Dip (Clotrimazole-Betamethasone Crm) 15 Gm Cream..g., 1 DOSE TOP BID PRN for RASH, (Reported) APPLIES TO RIGHT SIDE OF BELLY NEEDED Allergies Coded Allergies: No Known Allergies (Unverified , 12/21/18) DARIUS CARRASQUILLO DO Jul 25, 2020 18:33
== END 2020-07-24 17:42 | disposition home or self-care (01) | DRG 951 ==
LOC: M ED 11:38 → EDBD 11:38 → EEVIPCON 15:07 → M ED INP 15:07
PROVIDERS: ADMIT Internal Medicine; ATTEND Internal Medicine
DX: Z51.5 Encounter for palliative care (principal); M86.172 Other acute osteomyelitis, left ankle and foot; I50.32 Chronic diastolic (congestive) heart failure; E11.621 Type 2 diabetes mellitus with foot ulcer; L97.524 Non-pressure chronic ulcer of other part of left foot with necrosis of bone; N18.30 Chronic kidney disease, stage 3 unspecified; K21.9 Gastro-esophageal reflux disease without esophagitis; I48.91 Unspecified atrial fibrillation; I11.0 Hypertensive heart disease with heart failure; D64.9 Anemia, unspecified; N40.0 Benign prostatic hyperplasia without lower urinary tract symptoms; G30.9 Alzheimer's disease, unspecified; F02.80 Dementia in other diseases classified elsewhere, unspecified severity, without behavioral disturbance, psychotic disturbance, mood disturbance, and anxiety; Z79.01 Long term (current) use of anticoagulants; Z96.643 Presence of artificial hip joint, bilateral